=== PATIENT | male | born 1940 | race Caucasian/White ===

== ENCOUNTER 2017-07-18 21:15 | Emergency (ER) | payer MEDICARE, OTHER ==
[~2017-07-18] VITALS: Ht 162.6 cm; Wt 78.5 kg
[~2017-07-18 21:15] MED LIST: ALTACE10 MG PO; ASPIRIN EC325 MG PO; BISOPROLOL-HCT1 EAC2 PO; CRESTOR10 MG PO; DICLOFENAC SODI75 MG PO; FOLIC ACID1 MG PO; HYDROCHLOROTHIA25 MG PO; JANUVIA50 MG PO; LEVOTHYROXINE100 MCG PO; METFORMIN HCL1000 MG PO; NIASPAN500 MG PO; OMEGA 3 1,0001 EACH PO; RANITIDINE HCL150 MG PO; SERTRALINE HCL100 MG PO
[2017-07-18] MEDS ORDERED: ULTRAM50 MG PO (21:31)
== END 2017-07-19 00:10 | disposition home or self-care (01) ==
LOC: ED 21:15
DX: K59.00 Constipation, unspecified (principal); M54.5 Low back pain; M79.606 Pain in leg, unspecified; G89.29 Other chronic pain; E11.9 Type 2 diabetes mellitus without complications; I10 Essential (primary) hypertension; I25.2 Old myocardial infarction; E78.5 Hyperlipidemia, unspecified; Z95.5 Presence of coronary angioplasty implant and graft; Z90.49 Acquired absence of other specified parts of digestive tract; Z79.899 Other long term (current) drug therapy; Z79.82 Long term (current) use of aspirin; Z79.84 Long term (current) use of oral hypoglycemic drugs
CPT/HCPCS: 74177; 80053; 81001; 83690; 85025; 96374; 99284; J1885; Q9967

== ENCOUNTER 2017-09-30 14:38 | Emergency (ER) | payer MEDICARE, OTHER ==
[~2017-09-30] VITALS: Ht 162.6 cm; Wt 78.5 kg
[~2017-09-30 14:38] MED LIST changes: +ULTRAM50 MG PO
[2017-09-30] MEDS ORDERED: GABAPENTIN300 MG PO (15:17)
[2017-09-30] MEDS ORDERED: NORCO 10-325 T1 EACH PO (18:17)
== END 2017-09-30 18:47 | disposition home or self-care (01) ==
LOC: ED 14:38
DX: M54.9 Dorsalgia, unspecified (principal); G89.29 Other chronic pain; E11.9 Type 2 diabetes mellitus without complications; I10 Essential (primary) hypertension; E78.5 Hyperlipidemia, unspecified; I25.2 Old myocardial infarction; Z79.899 Other long term (current) drug therapy; Z79.84 Long term (current) use of oral hypoglycemic drugs; Z79.82 Long term (current) use of aspirin
CPT/HCPCS: 36415; 80053; 80176; 81001; 84443; 85025; 99283; G0480

== ENCOUNTER 2017-11-11 16:12 | Inpatient (IN) | payer MEDICARE, OTHER ==
[~2017-11-11] VITALS: Ht 162.6 cm; Wt 70.7 kg
--- OUTSIDE RECORDS SUMMARY | ~2017-11-11 | XMS | Clinical Summary ---
Demographics + + + | Address | [address] | | | [place] [address] | + + + | Home Phone | | + + + | Preferred Language | Unknown | + + + | Marital Status | | + + + | Muslim Affiliation | 1041 | + + + | Race | Unknown | + + + | Ethnic Group | Unknown | + + + Author + + + | Author | [facility] | + + + | Organization | [facility] | + + + | Address | Unknown | + + + | Phone | Unavailable | + + + Support + + + + + | Name | Relationship | Address | Phone | + + + + + | Marci Wu | [place] | [address] | | | | | [place] | | | | | [phone] | | + + + + + Care Team Providers + +------+ + | Care Public Information Coordinator Name | Role | Phone | + +------+ + | Breezy Matias MD | PP | | + +------+ + Allergies No Known Allergies Current Medications + + +-------+---------+------+------+-------+ | Prescription | Sig. | Disp. | Refills | Star | End | Statu | | | | | | t | Date | s | | | | | | Date | | | + + +-------+---------+------+------+-------+ | | Take 1 tablet by | | | | | Activ | | sitagliptan-metformi | mouth 2 (two) times | | | | | e | | n (CHERISE) 50-1000 | daily with meals. | | | | | | | MG per tablet | | | | | | | + + +-------+---------+------+------+-------+ | aspirin 325 MG | Take 325 mg by mouth | | | | | Activ | | tablet | daily with | | | | | e | | | breakfast. | | | | | | + + +-------+---------+------+------+-------+ | niacin (NIASPAN) | Take 500 mg by mouth | | | | | Activ | | 500 MG CR tablet | nightly. | | | | | e | + + +-------+---------+------+------+-------+ | folic acid | Take 1 mg by mouth | | | | | Activ | | (FOLVITE) 1 MG | daily. | | | | | e | | tablet | | | | | | | + + +-------+---------+------+------+-------+ | sertraline | Take 100 mg by mouth | | | | | Activ | | (ZOLOFT) 100 MG | daily. | | | | | e | | tablet | | | | | | | + + +-------+---------+------+------+-------+ | levothyroxine | Take 100 mcg by | | | | | Activ | | (SYNTHROID) 100 MCG | mouth every morning | | | | | e | | tablet | before breakfast. | | | | | | + + +-------+---------+------+------+-------+ | ramipril (ALTACE) | Take 10 mg by mouth | | | | | Activ | | 10 MG capsule | daily. | | | | | e | + + +-------+---------+------+------+-------+ | rosuvastatin | Take 10 mg by mouth | | | | | Activ | | (CRESTOR) 10 MG | nightly. | | | | | e | | tablet | | | | | | | + + +-------+---------+------+------+-------+ | diclofenac | Take 75 mg by mouth | | | | | Activ | | (VOLTAREN) 75 MG EC | 2 (two) times daily. | | | | | e | | tablet | | | | | | | + + +-------+---------+------+------+-------+ | glipiZIDE | Take 5 mg by mouth | | | | | Activ | | (GLUCOTROL) 2.5 MG | daily. | | | | | e | | 24 hr tablet | | | | | | | + + +-------+---------+------+------+-------+ | | Take 25 mg by mouth | | | | | Activ | | hydrochlorothiazide | daily. | | | | | e | | (HYDRODIURIL) 25 MG | | | | | | | | tablet | | | | | | | + + +-------+---------+------+------+-------+ | ranitidine | Take 150 mg by mouth | | | | | Activ | | (ZANTAC) 150 MG | 2 (two) times | | | | | e | | tablet | daily. | | | | | | + + +-------+---------+------+------+-------+ | fish oil omega-3 | Take 1 g by mouth | | | | | Activ | | fatty acids 1000 MG | daily. | | | | | e | | capsule | | | | | | | + + +-------+---------+------+------+-------+ | allopurinol | Take 100 mg by mouth | | | | | Activ | | (ZYLOPRIM) 100 MG | daily. | | | | | e | | tablet | | | | | | | + + +-------+---------+------+------+-------+ | amitriptyline | Take 10 mg by mouth | | | | | Activ | | (ELAVIL) 10 MG | nightly. | | | | | e | | tablet | | | | | | | + + +-------+---------+------+------+-------+ | aspirin 81 MG | Take 81 mg by mouth | | | | | Activ | | tablet | daily. | | | | | e | + + +-------+---------+------+------+-------+ | pregabalin | Take 150 mg by mouth | | | | | Activ | | (LYRICA) 300 MG | 2 (two) times | | | | | e | | capsule | daily. | | | | | | + + +-------+---------+------+------+-------+ Active Problems + + + | Problem | Noted Date | + + + | Moderate aortic stenosis | 03/15/2015 | + + + + + | Last Assessment & Plan: Will do periodic monitoring | | Continue Statin, ASA. | + + + + + | Coronary artery disease involving [place] coronary artery without | 02/01/2015 | | angina pectoris | | + + + + + | Last Assessment & Plan: H/o CAD s/p PCI to pLAD | | (3.5X3.3mm Cypher stent)Currently asymptomaticComplaints fatigue | | but attributes to knee painsLast stress- 06/03/2012- Abnormal test | | with lateral ischemiaEcho- 06/13/2012- Mild LVH with Normal | | systolic function, dilated aortic root03/03/2015- EST nuclear | | stress MPI- no ischemia, EF 62%02/09/2015- 2D echo normal LV | | function, moderate ASDiscussed diet, exercise, lifestyle | | changesContinue Toprol XL 25mg QD, Rosvastatin 10m QD, Plavix | | 75mg QD, HCTZ 25 mg daily, Ramipril 10mg daily, Niaspan ER 500mg | | dailyWill stop ZIAC (bisoprolol- HCTZ)Continue rest of the | | current managementF/u in 6 months. | |F/u in 6 months. | + + + +---+ | Hypertension | | + +---+ | TX (myocardial infarction) | | + +---+ Encounters +--------+ + + + + | Date | Type | Specialty | Care Team | Description | +--------+ + + + + | 11/10/ | Initial | | Myles Canchola MD | Nonrheumatic aortic | | 2017 | consult | | | valve stenosis | | | | | | (Primary Dx) | +--------+ + + + + | 10/27/ | Hospital | | Aries, | Aortic valve | | 2017 | Encounter | | Arya Reyes MD | stenosis, etiology | | | | | | of cardiac valve | | | | | | disease unspecified | +--------+ + + + + | 10/27/ | Orders Only | | Aries, | Aortic valve | | 2018 | | | Arya Reyes MD | stenosis, etiology | | | | | | of cardiac valve | | | | | | disease unspecified | | | | | | (Primary Dx) | +--------+ + + + + | 08/13/ | Office | | Nathaniel Hanson MD | Testicular pain, | | 2018 | Visit | | | left (Primary Dx); | | | | | | 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 | +--------+ + + + + from Last 3 Months Family History + + +------+ + | Medical History | Relation | Name | Comments | + + +------+ + | Heart attack | Father | | | + + +------+ + | Cancer | Mother | | | + + +------+ + | High cholesterol | Mother | | | + + +------+ + + +------+ + + | Relation | Name | Status | Comments | + +------+ + + | Brother | | | | + +------+ + + | Father | | | | + +------+ + + | Mother | | | | + +------+ + + Social History + +-------+ +--------+ + | Tobacco Use | Types | Packs/Day | Years | Date | | | | | Used | | + +-------+ +--------+ + | Former Smoker | | 1.5 | | Quit: 11/11/2007 | + +-------+ +--------+ + + +-------+---+---+ | Smokeless Tobacco: | Snuff | | | | Current User | | | | + +-------+---+---+ + + | Tobacco Cessation: Counseling Given: Yes | + + + + +---------+ + | Alcohol Use | Drinks/We | oz/Week | Comments | | | ek | | | + + +---------+ + | Yes | 0 | 0.0 | rarely | | | Standard | | | | | drinks or | | | | | | | | | | equivalen | | | | | t | | | + + +---------+ + + + + | Sex Assigned at | Date Recorded | | | | + + + | Not on file | | + + + Last Filed Vital Signs + + + + | Vital Sign | Reading | Time Taken | + + + + | Blood Pressure | 98/49 | 11/10/2017 12:07 PM PDT | + + + + | Pulse | 54 | 11/10/2017 12:07 PM PDT | + + + + | Temperature | 36.4 C (97.6 F) | 11/10/2017 12:07 PM PDT | + + + + | Respiratory Rate | 16 | 03/18/2016 11:24 AM PDT | + + + + | Oxygen Saturation | 98% | 11/10/2017 12:07 PM PDT | + + + + | Inhaled Oxygen | - | - | | Concentration | | | + + + + | Weight | 72.5 kg (159 lb 14.4 | 11/10/2017 12:07 PM PDT | | | oz) | | + + + + | Height | 167.6 cm (5' 6") | 11/10/2017 12:07 PM PDT | + + + + | Body Mass Index | 25.81 | 11/10/2017 12:07 PM PDT | + + + + Plan of Treatment + + + + + | Health Maintenance | Due Date | Last Done | Comments | + + + + + | Vaccine: | | | | | Dtap/Tdap/Td (1 - | 9 | | | | Tdap) | | | | + + + + + | Vaccine: | | | | | Pneumococcal 65+ | 5 | | | | Low/Medium Risk (1 | | | | | of 2 - PCV13) | | | | + + + + + | Vaccine: Influenza | | | | | (Season Ended) | 8 | | | + + + + + Procedures + +--------+ + + + | Procedure Name | Priori | Date/Time | Associated Diagnosis | Comments | | | ty | | | | + +--------+ + + + | ECHO CARDIAC ADULT | Routin | 10/27/2017 | Aortic valve | Results for this | | COMPLETE | e | 4:40 PM | stenosis, etiology | procedure are in the | | | | PDT | of cardiac valve | results section. | | | | | disease unspecified | | + +--------+ + + + from Last 3 Months Results Echo cardiac adult complete (10/27/2017 4:40 PM) + +-------+ + | Component | Value | Ref Range | + +-------+ + | LV EF | 55 | 50 - 70 % | + +-------+ + + + + | Specimen | Performing Laboratory | + + + | | [id number] [id number] | + + + + + | Impressions | + + | 1. Overall left ventricular systolic function is low-normal with, an EF between 50 - | | 55 %. 2. There is mild concentric left ventricular hypertrophy. 3. Severe aortic | | stenosis with peak/mean pressure gradient of 70.34mmHg / 41.11mmHg, the aortic valve | | area by continuity equation is 1.1cm . | + + + + | Narrative | + + | Patient Name: SUZIE WU Date of : 1940 | | Performing Physician: Arya Chris MD | | ------REPORT | | ADDENDED------ INDICATIONS AORTIC VALVE STENOSIS. CONCLUSIONS | | 1. Overall left ventricular systolic function is low-normal with, an EF | | between 50 - 55 %. 2. There is mild concentric left ventricular hypertrophy. 3. Severe | | aortic stenosis with peak/mean pressure gradient of 70.34mmHg / 41.11mmHg, the aortic | | valve area by continuity equation is 1.1cm . FINDINGS -------- ECG rhythm: | | Resting bradycardia (HR<60bpm). Study: A 2-dimensional transthoracic echocardiogram | | with m-mode, spectral and color flow Doppler was perfomed. Study: This was a | | technically good study. Left Ventricle: Overall left ventricular systolic function is | | low-normal with, an EF between 50 - 55 %. Left Ventricle: Left Ventricle ejection | | fraction by m-mode measures {EF(Teich)}. Left Ventricle: The left ventricle cavity | | size is normal. Left Ventricle: There is mild concentric left ventricular hypertrophy. | | Left Ventricle: The diastolic filling pattern indicates impaired relaxation | | consistent with mild dysfunction (Grade I), which is normal for the patient's age. | | Right Ventricle: The right ventricle is normal in size. Right Ventricle: The right | | ventricular systolic function is at the low end of normal. Left Atrium: The left atrium | | is mildly dilated by volume Left Atrium: and the LA measures 3.9cm. Right Atrium: | | The right atrial size is normal. Right Atrium: and the right atrium measures 4.5cm | | Aortic Valve: The aortic valve is trileaflet. Aortic Valve: The aortic valve is | | severely calcified. Aortic Valve: There is mild aortic regurgitation. Aortic Valve: | | Severe aortic stenosis with peak/mean pressure gradient of 70.34mmHg / 41.11mmHg, the | | aortic valve area by continuity equation is 1.1cm . Aortic Valve: The mean | | gradient across the aortic valve is 41.11mmHg. Mitral Valve: The mitral valve is | | normal. Mitral Valve: Mild mitral annular calcification present. Tricuspid Valve: The | | tricuspid valve appears structurally normal. Tricuspid Valve: Trace tricuspid | | regurgitation present. Tricuspid Valve: Right ventricular systolic pressure (pulmonary | | artery systolic pressure) is normal at < 35 mmHg. Pulmonic Valve: The pulmonic valve | | is normal. Pericardium: There is a trivial pericardial effusion present, generalized. | | IVC/Hepatic Veins: The IVC is normal size (1.5-2.5cm) and collapses >50% with sniff, | | consistent with central venous pressures of 5-10mmHg. Mass: No mass visualized | | Thrombus: No vegetation visualized. MEASUREMENTS EDV(Teich): | | 91.31 ml IVSd: 1.28 cm LVIDd: 4.47 cm LVPWd: 1.14 cm LVOT Diam: 2.11 | | cm %FS: 25.04 % EF(Teich): 49.69 % ESV(Teich): 45.93 ml IVSs: 1.57 | | cm LVIDs: 3.35 cm LVPWs: 1.78 cm SV(Teich): 45.37 ml PEd: 0.67 cm | | RA Major: 4.46 cm RVIDd: 3.33 cm LVEF MOD A2C: 55.04 % SV MOD A2C: | | 79.47 ml LVEF MOD A4C: 62.28 % SV MOD A4C: 65.37 ml EF Biplane: 58.73 % | | LVEDV MOD BP: 125.56 ml LVESV MOD BP: 51.81 ml LVEDV MOD A2C: 144.37 ml | | LVLd A2C: 8.17 cm LVEDV MOD A4C: 104.96 ml LVLd A4C: 7.78 cm LVESV MOD | | A2C: 64.89 ml LVLs A2C: 6.50 cm LVESV MOD A4C: 39.58 ml LVLs A4C: | | 6.14 cm CO Biplane: 3.25 l/min HR: 44.08 BPM R-R: 1361.01 ms | | LAESV(A-L): 75.85 ml LAESV Index (A-L): 41.67 ml/m2 LAAs A2C: 21.98 cm2 | | LAESV A-L A2C: 74.32 ml LALs A2C: 5.51 cm LAAs A4C: 22.28 cm2 LAESV A-L | | A4C: 76.90 ml LALs A4C: 5.48 cm Karen: 5.56 cm2 RAEDV A-L: 7.54 ml | | RAEDV MOD: 7.87 ml RALd: 3.48 cm Ao Diam: 3.64 cm AV Cusp: 0.86 cm | | LA Diam: 3.85 cm LA/Ao: 1.05 D-E Excursion: 1.94 cm E-F Garrard: 0.03 | | m/s TAPSE: 1.28 cm IVC diameter: 2.19 cm IVC collapse: 1.04 cm IVC % | | collapse: 49.97 % HR: 46.93 BPM AV maxP.34 mmHg AV meanP.11 | | mmHg AV Vmax: 4.19 m/s AV Vmean: 3.01 m/s AV VTI: 106.80 cm VERA | | Vmax: 1.06 cm2 VERA (VTI): 1.11 cm2 AVAI Vmax: 0.00 cm2/m2 AVAI (VTI): | | 0.00 cm2/m2 LVCI Dopp: 3.41 l/minm2 LVCO Dopp: 6.22 l/min HR: 52.38 BPM | | LVOT maxP.41 mmHg LVOT meanP.58 mmHg LVSI Dopp: 65.26 ml/m2 LVSV | | Dopp: 118.78 ml LVOT Vmax: 1.26 m/s LVOT Vmean: 0.90 m/s LVOT VTI: | | 33.70 cm MCO: 446.36 ms MR maxP.30 mmHg MR meanP.40 mmHg MR | | Vmax: 5.43 m/s MR Vmean: 3.97 m/s MR VTI: 204.37 cm MV A Phil: 1.01 | | m/s MV DecT: 276.09 ms MV E Phil: 1.14 m/s MV E/A Ratio: 1.13 MV | | PHT: 88.84 ms MVA By PHT: 2.47 cm2 MV A Dur: 117.64 ms Septal e': | | 0.04 m/s Septal E/e': 26.02 Lateral e': 0.06 m/s Lateral E/e': 18.46 P | | Vein A: 0.30 m/s P Vein A Dur: 93.42 ms P Vein D: 0.46 m/s P Vein S/D | | Ratio: 1.59 P Vein S: 0.74 m/s HR: 46.36 BPM PV maxP.48 mmHg PV | | meanP.41 mmHg PV Vmax: 1.27 m/s PV Vmean: 0.87 m/s PV VTI: 33.34 | | cm RV S': 0.11 m/s TR maxP.47 mmHg TR Vmax: 1.53 m/s TV A Phil: | | 0.47 m/s TV Dec Garrard: 2.23 m/s2 TV Dec Time: 286.00 ms TV E Phil: 0.63 | | m/s TV E/A Ratio: 1.33 [employer] Tutor: ANGELA Authenticated by: Arya Chris | | Report Date/Time: 10-28-2017 8:45:32 | + + + + | Procedure Note | + + | Kobi Cummings In - 10/28/2017 8:51 AM PDT Patient Name: Jose WU of | | : 1940Accession: [id number] Physician: Arya Chris | | ------REPORT | | ADDENDED------INDICATIONS AORTIC VALVE STENOSIS.CONCLUSIONS 1. | | Overall left ventricular systolic function is low-normal with, an EF between 50 - 55 | | %.2. There is mild concentric left ventricular hypertrophy.3. Severe aortic stenosis | | with peak/mean pressure gradient of 70.34mmHg / 41.11mmHg, the aortic valve area by | | continuity equation is 1.1cm .FINDINGS--------ECG rhythm: Resting bradycardia | | (HR<60bpm).Study: A 2-dimensional transthoracic echocardiogram with m-mode, spectral and | | color flow Doppler was perfomed. Study: This was a technically good study.Left | | Ventricle: Overall left ventricular systolic function is low-normal with, an EF between | | 50 - 55 %. Left Ventricle: Left Ventricle ejection fraction by m-mode measures | | {EF(Teich)}. Left Ventricle: The left ventricle cavity size is normal. Left Ventricle: | | There is mild concentric left ventricular hypertrophy. Left Ventricle: The diastolic | | filling pattern indicates impaired relaxation consistent with mild dysfunction (Grade | | I), which is normal for the patient's age.Right Ventricle: The right ventricle is normal | | in size. Right Ventricle: The right ventricular systolic function is at the low end of | | normal.Left Atrium: The left atrium is mildly dilated by volume Left Atrium: and the LA | | measures 3.9cm.Right Atrium: The right atrial size is normal. Right Atrium: and the | | right atrium measures 4.5cmAortic Valve: The aortic valve is trileaflet. Aortic Valve: | | The aortic valve is severely calcified. Aortic Valve: There is mild aortic | | regurgitation. Aortic Valve: Severe aortic stenosis with peak/mean pressure gradient of | | 70.34mmHg / 41.11mmHg, the aortic valve area by continuity equation is 1.1cm . | | Aortic Valve: The mean gradient across the aortic valve is 41.11mmHg.Mitral Valve: The | | mitral valve is normal. Mitral Valve: Mild mitral annular calcification | | present.Tricuspid Valve: The tricuspid valve appears structurally normal. Tricuspid | | Valve: Trace tricuspid regurgitation present. Tricuspid Valve: Right ventricular | | systolic pressure (pulmonary artery systolic pressure) is normal at < 35 mmHg.Pulmonic | | Valve: The pulmonic valve is normal.Pericardium: There is a trivial pericardial effusion | | present, generalized.IVC/Hepatic Veins: The IVC is normal size (1.5-2.5cm) and | | collapses >50% with sniff, consistent with central venous pressures of 5-10mmHg.Mass: No | | mass visualizedThrombus: No vegetation visualized.MEASUREMENTS EDV(Teich): | | 91.31 mlIVSd: 1.28 cmLVIDd: 4.47 cmLVPWd: 1.14 cmLVOT Diam: 2.11 cm%FS: | | 25.04 %EF(Teich): 49.69 %ESV(Teich): 45.93 mlIVSs: 1.57 cmLVIDs: 3.35 cmLVPWs: | | 1.78 cmSV(Teich): 45.37 mlPEd: 0.67 cmRA Major: 4.46 cmRVIDd: 3.33 cmLVEF MOD | | A2C: 55.04 %SV MOD A2C: 79.47 mlLVEF MOD A4C: 62.28 %SV MOD A4C: 65.37 mlEF | | Biplane: 58.73 %LVEDV MOD BP: 125.56 mlLVESV MOD BP: 51.81 mlLVEDV MOD A2C: | | 144.37 mlLVLd A2C: 8.17 cmLVEDV MOD A4C: 104.96 mlLVLd A4C: 7.78 cmLVESV MOD A2C: | | 64.89 mlLVLs A2C: 6.50 cmLVESV MOD A4C: 39.58 mlLVLs A4C: 6.14 cmCO Biplane: | | 3.25 l/minHR: 44.08 BPMR-R: 1361.01 msLAESV(A-L): 75.85 mlLAESV Index (A-L): | | 41.67 ml/m2LAAs A2C: 21.98 po7ENTER A-L A2C: 74.32 mlLALs A2C: 5.51 cmLAAs A4C: | | 22.28 [id number] A-L A4C: 76.90 mlLALs A4C: 5.48 cmRAAd: 5.56 hp2XXATH A-L: 7.54 | | mlRAEDV MOD: 7.87 mlRALd: 3.48 cmAo Diam: 3.64 cmAV Cusp: 0.86 cmLA Diam: 3.85 | | cmLA/Ao: 1.05 D-E Excursion: 1.94 cmE-F Garrard: 0.03 m/sTAPSE: 1.28 cmIVC | | diameter: 2.19 cmIVC collapse: 1.04 cmIVC % collapse: 49.97 %HR: 46.93 BPMAV | | maxP.34 mmHgAV meanP.11 mmHgAV Vmax: 4.19 m/Frank Vmean: 3.01 m/Frank VTI: | | 106.80 cmAVA Vmax: 1.06 cm2AVA (VTI): 1.11 [id number] Vmax: 0.00 cm2/m2AVAI (VTI): | | 0.00 cm2/m2LVCI Dopp: 3.41 l/yasq2QVAG Dopp: 6.22 l/minHR: 52.38 BPMLVOT maxPG: | | 6.41 mmHgLVOT meanP.58 mmHgLVSI Dopp: 65.26 ml/m2LVSV Dopp: 118.78 mlLVOT | | Vmax: 1.26 m/sLVOT Vmean: 0.90 m/sLVOT VTI: 33.70 cmMCO: 446.36 msMR maxPG: | | 118.30 mmHgMR meanP.40 mmHgMR Vmax: 5.43 m/sMR Vmean: 3.97 m/sMR VTI: | | 204.37 cmMV A Phil: 1.01 m/sMV DecT: 276.09 msMV E Phil: 1.14 m/sMV E/A Ratio: | | 1.13 MV PHT: 88.84 msMVA By PHT: 2.47 cm2MV A Dur: 117.64 msSeptal e': 0.04 | | m/sSeptal E/e': 26.02 Lateral e': 0.06 m/sLateral E/e': 18.46 P Vein A: 0.30 | | m/sP Vein A Dur: 93.42 msP Vein D: 0.46 m/sP Vein S/D Ratio: 1.59 P Vein S: 0.74 | | m/sHR: 46.36 BPMPV maxP.48 mmHgPV meanP.41 mmHgPV Vmax: 1.27 m/sPV | | Vmean: 0.87 m/sPV VTI: 33.34 cmRV S': 0.11 m/sTR maxP.47 mmHgTR Vmax: 1.53 | | m/sTV A Phil: 0.47 m/sTV Dec Garrard: 2.23 m/s2TV Dec Time: 286.00 msTV E Phil: | | 0.63 m/sTV E/A Ratio: 1.33 [employer] Tutor: MIKAuthenticated by: Arya Chris | | MDReport Date/Time: 10-28-2017 8:45:32IMPRESSION:1. Overall left ventricular systolic | | function is low-normal with, an EF between 50 - 55 %.2. There is mild concentric left | | ventricular hypertrophy.3. Severe aortic stenosis with peak/mean pressure gradient of | | 70.34mmHg / 41.11mmHg, the aortic valve area by continuity equation is 1.1cm . | |LVIDs: 3.35 cm | |LVPWs: 1.78 cm | |SV(Teich): 45.37 ml | |PEd: 0.67 cm | |RA Major: 4.46 cm | |RVIDd: 3.33 cm | |LVEF MOD A2C: 55.04 % | |SV MOD A2C: 79.47 ml | |LVEF MOD A4C: 62.28 % | |SV MOD A4C: 65.37 ml | |EF Biplane: 58.73 % | |LVEDV MOD BP: 125.56 ml | |LVESV MOD BP: 51.81 ml | |LVEDV MOD A2C: 144.37 ml | |LVLd A2C: 8.17 cm | |LVEDV MOD A4C: 104.96 ml | |LVLd A4C: 7.78 cm | |LVESV MOD A2C: 64.89 ml | |LVLs A2C: 6.50 cm | |LVESV MOD A4C: 39.58 ml | |LVLs A4C: 6.14 cm | |CO Biplane: 3.25 l/min | |HR: 44.08 BPM | |R-R: 1361.01 ms | |LAESV(A-L): 75.85 ml | |LAESV Index (A-L): 41.67 ml/m2 | |LAAs A2C: 21.98 cm2 | |LAESV A-L A2C: 74.32 ml | |LALs A2C: 5.51 cm | |LAAs A4C: 22.28 cm2 | |LAESV A-L A4C: 76.90 ml | |LALs A4C: 5.48 cm | |Karen: 5.56 cm2 | |RAEDV A-L: 7.54 ml | |RAEDV MOD: 7.87 ml | |RALd: 3.48 cm | |Ao Diam: 3.64 cm | |AV Cusp: 0.86 cm | |LA Diam: 3.85 cm | |LA/Ao: 1.05 | |D-E Excursion: 1.94 cm | |E-F Garrard: 0.03 m/s | |TAPSE: 1.28 cm | |IVC diameter: 2.19 cm | |IVC collapse: 1.04 cm | |IVC % collapse: 49.97 % | |HR: 46.93 BPM | |AV maxP.34 mmHg | |AV meanP.11 mmHg | |AV Vmax: 4.19 m/s | |AV Vmean: 3.01 m/s | |AV VTI: 106.80 cm | |VERA Vmax: 1.06 cm2 | |VERA (VTI): 1.11 cm2 | |AVAI Vmax: 0.00 cm2/m2 | |AVAI (VTI): 0.00 cm2/m2 | |LVCI Dopp: 3.41 l/minm2 | |LVCO Dopp: 6.22 l/min | |HR: 52.38 BPM | |LVOT maxP.41 mmHg | |LVOT meanP.58 mmHg | |LVSI Dopp: 65.26 ml/m2 | |LVSV Dopp: 118.78 ml | |LVOT Vmax: 1.26 m/s | |LVOT Vmean: 0.90 m/s | |LVOT VTI: 33.70 cm | |MCO: 446.36 ms | |MR maxP.30 mmHg | |MR meanP.40 mmHg | |MR Vmax: 5.43 m/s | |MR Vmean: 3.97 m/s | |MR VTI: 204.37 cm | |MV A Phil: 1.01 m/s | |MV DecT: 276.09 ms | |MV E Phil: 1.14 m/s | |MV E/A Ratio: 1.13 | |MV PHT: 88.84 ms | |MVA By PHT: 2.47 cm2 | |MV A Dur: 117.64 ms | |Septal e': 0.04 m/s | |Septal E/e': 26.02 | |Lateral e': 0.06 m/s | |Lateral E/e': 18.46 | |P Vein A: 0.30 m/s | |P Vein A Dur: 93.42 ms | |P Vein D: 0.46 m/s | |P Vein S/D Ratio: 1.59 | |P Vein S: 0.74 m/s | |HR: 46.36 BPM | |PV maxP.48 mmHg | |PV meanP.41 mmHg | |PV Vmax: 1.27 m/s | |PV Vmean: 0.87 m/s | |PV VTI: 33.34 cm | |RV S': 0.11 m/s | |TR maxP.47 mmHg | |TR Vmax: 1.53 m/s | |TV A Phil: 0.47 m/s | |TV Dec Garrard: 2.23 m/s2 | |TV Dec Time: 286.00 ms | |TV E Phil: 0.63 m/s | |TV E/A Ratio: 1.33 | | | |[employer] School Tutor: ANGELA | |Authenticated by: Arya Chris MD | |Report Date/Time: 10-28-2017 8:45:32 | | | |IMPRESSION: | |1. Overall left ventricular systolic function is low-normal with, an EF between 50 - 55 %. | |2. There is mild concentric left ventricular hypertrophy. | |3. Severe aortic stenosis with peak/mean pressure gradient of 70.34mmHg / 41.11mmHg, the ao rtic valve area by continuity equation is 1.1cm . | + + from Last 3 Months Insurance + +--------+ +------+-------+ + | Payer | Benefi | Subscriber | Type | Phone | Address | | | t Plan | ID | | | | | | / | | | | | | | Group | | | | | + +--------+ +------+-------+ + | MEDICARE | MEDICA | xxxxxxxxxx | | | [address] | | | RE | | | | [place] [phone] | | | IP-OP | | | | | + +--------+ +------+-------+ + | [place] | YELLOW | [id number] | | | | | PLANS | [place] | | | | | + +--------+ +------+-------+ + + +--------+ +--------+ + + | Guarantor Name | Accoun | Relation to | Date | Phone | Billing Address | | | t Type | Patient | of | | | | | | | | | | + +--------+ +--------+ + + | SUZIE WU | Person | Self [birth year] Home: | [id number] | | | al/Fam | | 1940 | [phone] [place] [address] | | | laxmi | | | [phone] | | + +--------+ +--------+ + +
--- OUTSIDE RECORDS SUMMARY | ~2017-11-11 | XMS | Clinical Summary ---
Demographics + + + | Address | [address] | | | [place] [address] | + + + | Home Phone | | + + + | Preferred Language | Unknown | + + + | Marital Status | | + + + | Tenriism Affiliation | 1041 | + + + | Race | Unknown | + + + | Ethnic Group | Unknown | + + + Author + + + | Author | [facility] | | | and [place] | + + + | Organization | [facility] | | | and [place] | + + + | Address | Unknown | + + + | Phone | Unavailable | + + + Support + + +---------+ + | Name | Relationship | Address | Phone | + + +---------+ + | Marci Wu | [place] | Unknown | | + + +---------+ + | Samantha Masters ECON | Unknown | | + + +---------+ + Care Team Providers + +------+ + | Care Sign Maker Name | Role | Phone | + +------+ + | Breezy Matias DO | PP | | + +------+ + Allergies + + + + + + | Active Allergy | Reactions | Severity | Noted | Comments | | | | | Date | | + + + + + + | Celecoxib | Other (See Comments) | | 02/07/20 | Unknown reaction | | | | | 18 | | + + + + + + | Erythromycin | Diarrhea | Low | 09/02/19 | | | | | | 18 | | + + + + + + Current Medications + + +---------+---------+------+------+-------+ | Prescription | Sig. | Disp. | Refills | Star | End | Statu | | | | | | t | Date | s | | | | | | Date | | | + + +---------+---------+------+------+-------+ | | Take 2 tablets by | | | | | Activ | | sitagliptan-metFORMI | mouth Daily. | | | | | e | | N FLETCHER) 50-1000 | | | | | | | | MG per tablet | | | | | | | + + +---------+---------+------+------+-------+ | sertraline | Take 100 mg by mouth | | | | | Activ | | (ZOLOFT) 100 mg | Daily. | | | | | e | | tablet | | | | | | | + + +---------+---------+------+------+-------+ | rosuvastatin | Take 10 mg by mouth | | | | | Activ | | (CRESTOR) 10 mg | Daily. | | | | | e | | tablet | | | | | | | + + +---------+---------+------+------+-------+ | raNITIdine | Take 2 tablets by | | | | | Activ | | (ZANTAC) 150 mg | mouth Daily. | | | | | e | | tablet | | | | | | | + + +---------+---------+------+------+-------+ | niacin (NIASPAN) | Take 500 mg by mouth | | | | | Activ | | 500 mg CR tablet | Daily. | | | | | e | + + +---------+---------+------+------+-------+ | levothyroxine | Take 100 mcg by | | | | | Activ | | (SYNTHROID) 100 mcg | mouth Daily. | | | | | e | | tablet | | | | | | | + + +---------+---------+------+------+-------+ | | Take 25 mg by mouth | | | | | Activ | | hydroCHLOROthiazide | Daily. | | | | | e | | 25 mg tablet | | | | | | | + + +---------+---------+------+------+-------+ | glipiZIDE | Take 5 mg by mouth | | | | | Activ | | (GLUCOTROL XL) 2.5 | Daily. | | | | | e | | mg 24 hr tablet | | | | | | | + + +---------+---------+------+------+-------+ | folic acid 1 mg | Take 1 mg by mouth | | | | | Activ | | tablet | Daily. | | | | | e | + + +---------+---------+------+------+-------+ | aspirin 81 MG | Take 81 mg by mouth | | | | | Activ | | tablet | Daily. | | | | | e | + + +---------+---------+------+------+-------+ | amitriptyline | Take 10 mg by mouth | | | | | Activ | | (ELAVIL) 10 mg | Daily. | | | | | e | | tablet | | | | | | | + + +---------+---------+------+------+-------+ | allopurinol | Take 100 mg by mouth | | | | | Activ | | (ZYLOPRIM) 100 mg | Daily. | | | | | e | | tablet | | | | | | | + + +---------+---------+------+------+-------+ | fish oil 1,000 mg | Take 2,000 mg by | | | | | Activ | | capsule | mouth 2 times daily. | | | | | e | + + +---------+---------+------+------+-------+ | lidocaine | Place 1 patch onto | | | | | Activ | | (LIDODERM) 5% patch | the skin Daily. | | | | | e | | | Apply for 12 hours, | | | | | | | | then remove for 12 | | | | | | | | hours. | | | | | | + + +---------+---------+------+------+-------+ | | Take 1-2 tablets by | | 0 | 02/1 | | Activ | | oxyCODONE-acetaminop | mouth EVERY 4 TO 6 | | | 2/20 | | e | | hen (PERCOCET) 5-325 | HOURS NEEDED. | | | 18 | | | | mg per tablet | | | | | | | + + +---------+---------+------+------+-------+ | docusate sodium | Take 100 mg by mouth | | | | | Activ | | (COLACE) 100 mg | Daily. | | | | | e | | capsule | | | | | | | + + +---------+---------+------+------+-------+ | gabapentin | 1 tab PO nightly x 5 | 120 | 2 | 03/0 | | Activ | | (NEURONTIN) 300 mg | days, then increase | capsule | | 5/20 | | e | | capsule | to 1 tab PO BID x 5 | | | 18 | | | | | days. If continue | | | | | | | | to tolerate well, | | | | | | | | increase to 1 tab PO | | | | | | | | TID. | | | | | | + + +---------+---------+------+------+-------+ | | Take 1 tablet by | | 0 | 03/0 | | Activ | | HYDROcodone-acetamin | mouth EVERY 4 TO 6 | | | 7/20 | | e | | ophen (NORCO) 10-325 | HOURS NEEDED. | | | 18 | | | | mg per tablet | | | | | | | + + +---------+---------+------+------+-------+ Active Problems + + + | Problem | Noted Date | + + + | Left lumbar radiculopathy | 09/28/2017 | + + + | Foraminal stenosis of lumbar region | 09/28/2017 | + + + | DDD (degenerative disc disease), lumbar | 09/28/2017 | + + + | History of lumbar laminectomy - L4/L5 | 09/28/2017 | + + + | Hypertension | 09/02/2017 | + + + | [place] (myocardial infarction) ([facility]) | 09/02/2017 | + + + | Moderate aortic stenosis | 03/15/2015 | + + + + + | Overview: Last Assessment & Plan: | | Will do periodic monitoring | | Continue Statin, ASA. 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 | 02/01/2015 | | angina pectoris | | + + + + + | Overview: Last Assessment & Plan: H/o CAD s/p PCI to pLAD | | (3.5X3.3mm Cypher stent)Currently asymptomaticComplaints | | fatigue but attributes to knee painsLast stress- 06/03/2012- | | Abnormal test with lateral ischemiaEcho- 06/13/2012- Mild LVH | | with Normal systolic function, dilated aortic root03/03/2015- EST | | nuclear stress MPI- no ischemia, EF 62%02/09/2015- 2D echo normal | | LV function, moderate ASDiscussed diet, exercise, lifestyle | | changesContinue Toprol XL 25mg QD, Rosvastatin 10m QD, Plavix | | 75mg QD, HCTZ 25 mg daily, Ramipril 10mg daily, Niaspan ER 500mg | | dailyWill stop ZIAC (bisoprolol- HCTZ)Continue rest of the | | current managementF/u in 6 months. | |Continue rest of the current management | |F/u in 6 months. | + + + +---+ | Low back pain | | + +---+ Encounters +--------+ + + + + | Date | Type | Specialty | Care Team | Description | +--------+ + + + + | 11/04/ | Orders Only | | Heriberto Choudhury MD | Back pain, | | 2017 | | | | unspecified back | | | | | | location, | | | | | | unspecified back | | | | | | pain laterality, | | | | | | unspecified | | | | | | chronicity (Primary | | | | | | Dx) | +--------+ + + + + | 10/15/ | Procedure | | | | | 2018 | Pass | | | | +--------+ + + + + | 10/12/ | Episode | | [facility] | | | 2018 | Changes | | Gian RN | | +--------+ + + + + | 10/08/ | Telephone | | [facility] | Surgery Appointment | | 2018 | | | MD Dai | | +--------+ + + + + | 10/06/ | Preadmit | | [facility] | Hypertension, | | 2018 | Visit | | MD Dai | unspecified type | | | | | | (Primary Dx); | | | | | | Coronary artery | | | | | | disease involving | | | | | | nikolski coronary | | | | | | artery of nikolski | | | | | | heart without angina | | | | | | pectoris | +--------+ + + + + | 10/06/ | Office | | [facility] | Coronary artery | | 2017 | Visit | | MD Dai | disease involving | | | | | | nikolski coronary | | | | | | artery of nikolski | | | | | | heart without angina | | | | | | pectoris (Primary | | | | | | Dx); Hypertension, | | | | | | unspecified type; | | | | | | Benign prostatic | | | | | | hyperplasia with | | | | | | weak urinary stream | +--------+ + + + + | 09/29/ | Hospital | | Mel, | Left lumbar | | 2017 | Encounter | | TYRA Darden | radiculopathy; | | | | | [employer] | Foraminal stenosis | | | | | | of lumbar region; | | | | | | DDD (degenerative | | | | | | disc disease), | | | | | | lumbar; History of | | | | | | lumbar laminectomy - | | | | | | L4/L5 | +--------+ + + + + | 09/28/ | Office | | Mel, | Left lumbar | | 2017 | Visit | | TYRA Darden | radiculopathy; | | | | | | Foraminal stenosis | | | | | | of lumbar region; | | | | | | DDD (degenerative | | | | | | disc disease), | | | | | | lumbar; History of | | | | | | lumbar laminectomy - | | | | | | L4/L5 | +--------+ + + + + | 09/28/ | Abstract | | Mel, | | | 2017 | | | TYRA Darden | | +--------+ + + + + | 09/22/ | Abstract | | Mel, | | | 2017 | | | TYRA Darden | | +--------+ + + + + | 09/17/ | Ancillary | | Provider, | | | 2018 | Orders | | MD Akash | | +--------+ + + + + | 09/15/ | Episode | | [facility] | | | 2017 | Changes | | A, RN | | +--------+ + + + + | 09/15/ | Episode | | [facility] | | | 2017 | Changes | | A, RN | | +--------+ + + + + | 09/08/ | Office | | [facility] [place] | BPH with | | 2017 | Visit | | MD Dai | obstruction/lower | | | | | | urinary tract | | | | | | symptoms (Primary | | | | | | Dx); Pyuria; Pre-op | | | | | | examination | +--------+ + + + + | 09/02/ | Office | | [facility] [place] | 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 (Primary | | | | | | Dx); Testicle pain; | | | | | | Benign prostatic | | | | | | hyperplasia with | | | | | | lower urinary tract | | | | | | symptoms, symptom | | | | | | details unspecified | +--------+ + + + + from Last 3 Months Family History + + +------+ + | Medical History | Relation | Name | Comments | + + +------+ + | Arthritis | Father | | | + + +------+ + | Diabetes | Father | | | + + +------+ + | Heart attack | Father | | | + + +------+ + | Diabetes | Mother | | | + + +------+ + | High cholesterol | Mother | | | + + +------+ + | Prostate cancer | Neg Hx | | | + + +------+ + + +------+ + + | Relation | Name | Status | Comments | + +------+ + + | Father | | | internal bleeding | | | | (Age | | | | | 85) | | + +------+ + + | Mother | | | diabetes | | | | (Age | | | | | 85) | | + +------+ + + Social History + +-------+ +--------+ + | Tobacco Use | Types | Packs/Day | Years | Date | | | | | Used | | + +-------+ +--------+ + | Former Smoker | | 2 | | Quit: 09/28/1977 | + +-------+ +--------+ + + +------+---+---+ | Smokeless Tobacco: | Chew | | | | Former User | | | | + +------+---+---+ + + +---------+ + | Alcohol Use | Drinks/We | oz/Week | Comments | | | ek | | | + + +---------+ + | Yes | | | rare | + + +---------+ + + + + | Sex Assigned at | Date Recorded | | | | + + + | Not on file | | + + + Last Filed Vital Signs + + + + | Vital Sign | Reading | Time Taken | + + + + | Blood Pressure | 130/62 | 10/06/2017922 PDT | + + + + | Pulse | 64 | 10/06/2017922 PDT | + + + + | Temperature | - | - | + + + + | Respiratory Rate | 16 | 10/06/2017922 PDT | + + + + | Oxygen Saturation | - | - | + + + + | Inhaled Oxygen | - | - | | Concentration | | | + + + + | Weight | 70.4 kg (155 lb 3.3 | 10/06/2017922 PDT | | | oz) | | + + + + | Height | 170.2 cm (5' 7") | 10/06/2017922 PDT | + + + + | Body Mass Index | 24.31 | 10/06/2017922 PDT | + + + + Plan of Treatment +--------+---------+ + + + | Date | Type | Specialty | Care Team | Description | +--------+---------+ + + + | 02/09/ | Office | | Heriberto Choudhury MD | | | 2018 | Visit | | [address] [facility] | | | | | | [address] [place] | | | | | | [address] | | | | | | | | | | | | Zackery Wei | | | | | | TYRA Menezes [address] | | | | | | [facility] [address] | | | | | | [place] | | | | | | [address] | | | | | | | | +--------+---------+ + + + + + + + + | Health [...] | | + + + + + Results Hemoglobin (10/06/2017 1037) + + + + | Component | Value | Ref Range | + + + + | Hgb | 10.4 (L) | 13.5 - 18.0 g/dL | + + + + + + + | Specimen | Performing Laboratory | + + + | Blood | [facility] Tanna Allen | | | [place] [address] | + + + Basic Metabolic Panel (10/06/2017 1037) + + + + | Component | Value | Ref Range | + + + + | NA | 138 | 136 - 149 mmol/L | + + + + | K | 4.4 | 3.5 - 5.1 mmol/L | + + + + | CL | 103 | 98 - 109 mmol/L | + + + + | CO2 | 27 | 24 - 31 mmol/L | + + + + | ANION GAP | 8 | 3 - 16 mmol/L | + + + + | GLUCOSE | 179 (H) | 70 - 109 mg/dL | + + + + | BUN | 12 | 7 - 18 mg/dL | + + + + | Creatinine, | 1.20 | 0.60 - 1.30 mg/dL | | Serum/Plasma | | | + + + + | eGFR if not | 59 (L)Comment: GLOMERULAR FILTRATION | >=60 mL/min/1.73m2 | | OMANI | RATE,ESTIMATED mL/min/1.10f9Oupq than | | | | 60 Chronic kidney disease,if found over | | | | a 3-month period.Less than 15 Kidney | | | | failureFor Americans,multiply the | | | | calculated GFR by 1.21. | | | | | | | | | | + + + + | CALCIUM | 9.1 | 8.3 - 10.5 mg/dL | + + + + | BUN/CREA | 10.0 | | + + + + + + + | Specimen | Performing Laboratory | + + + | Blood | [facility] Tanna ChurchViktoriya Rivasar | | | [place] [address] | + + + ECG 12 lead (10/06/2017 1034) + + +------ -----+ | Component | Value | Ref R nneka | + + +------ -----+ | VENTRICULAR RATE EKG | 50 | BPM | + + +------ -----+ | ATRIAL RATE | 50 | BPM | + + +------ -----+ | P-R INTERVAL | 190 | ms | + + +------ -----+ | QRS DURATION | 148 | ms | + + +------ -----+ | Q-T INTERVAL | 472 | ms | + + +------ -----+ | Q-T INTERVAL | 430 | ms | | (CORRECTED) | | | + + +------ -----+ | P WAVE AXIS | 63 | degre es | + + +------ -----+ | QRS AXIS | -21 | degre es | + + +------ -----+ | T AXIS | 145 | degre es | + + +------ -----+ | INTERPRETATION TEXT | Sinus bradycardiaLeft bundle branch | | | | blockAbnormal ECGNo previous ECGs | | | | availableConfirmed by VIRGINIA GRADY MD | | | | ([id number]) on 10/07/2017 7:33:35 AM | | | |Confirmed by VIRGINIA GRADY MD ([id number]) on 10/07/2017 7:33:35 AM | | | | | | + + +------ -----+ + + + | Specimen | Performing Laboratory | + + + | | [facility] | + + + FL JOJO Lumbar Transforaminal (09/29/2017 1406) + + + | Specimen | Performing Laboratory | + + + | | [facility] | + + + + + | Narrative | + + | 09/29/2017 Transforaminal Epidural Steroid Injections Diagnosis: Lumbar | | radiculopathy ICD-10 Code M54.16 Suzie Wu presents to the fluoroscopy | | suite for fluoroscopically-guided left L2-L3 and L5-S1 transforaminal epidural | | steroid injections as part of conservative management for chronic pain with lumbar | | radiculopathy and degenerative disc disease. After informed consent was obtained, the | | patient lay in the prone position on the fluoroscopy table. The areas were identified | | under fluoroscopic guidance. The areas were prepped and draped in sterile fashion. A | | 25-gauge, 1.5-inch needle was inserted into each region and approximately 3 mL of | | buffered 1% lidocaine was infused. Then, a 22-gauge spinal needle was inserted into | | the posterior superior transforaminal space at each level and advanced into the | | epidural space under fluoroscopic guidance. Confirmation into the epidural space was | | obtained with infusion of approximately 1 mL of Omnipaque contrast which showed | | epidural flow as well as nerve sheath flow. Then, a combination of 2 mL of 1% | | lidocaine and 1.5 mL of 10 mg/mL dexamethasone was infused, divided between the two | | levels. The patient tolerated the procedure well without complications. Pre- and | | post-procedure blood pressures were stable. The patient was given verbal as well as | | written follow-up instructions. Prior to the start of the procedure, the following | | were performed and/or verified, including correct patient identity, correct site/side | | marked and visible, agreement on the procedure to be done, correct patient | | positioning and an accurate procedure consent form. Any safety precautions based on | | clinical history and/or medication use have been addressed. I personally performed the | | procedure above. Estimated blood loss: Minimal Complications: None Findings: As | | expected Anesthesia: Local 1% Lidocaine | + + Urinalysis, Microscopic Only, with Culture if Indicated (09/08/2017 1329) + + + + | Component | Value | Ref Range | + + + + | WBC UA | 0-2 | 0 - 2 /HPF | + + + + | RBC UA | 0-2 | 0 - 2 /HPF | + + + + | SQUAMOUS EPITHELIAL | 2-5 (A) | 0 - 2 /LPF | | UA | | | + + + + | RENAL EPITHELIAL UA | 0-2 | 0 - 2 /HPF | + + + + | BACTERIA UA | Negative | Negative /HPF | + + + + | MUCUS UA | Present (A) | Negative /LPF | + + + + + + + | Specimen | Performing Laboratory | + + + | Urine - Urine, clean | [facility] Tanna Allen | | catch | [place] [address] | + + + POCT Urinalysis Dipstick Automated (09/08/2017 1327)Only the most recent of 2 results withi n the time period is included. + + + + | Component | Value | Ref Range | + + + + | Color, UA, POC | Susan (A) | Yellow, Light Yellow | + + + + | Clarity, UA, POC | Clear | | + + + + | Glucose, UA, POC | Negative | Negative | + + + + | Bilirubin, UA, POC | Small (A) | Negative | + + + + | Ketones, UA, POC | Trace (A) | Negative, 100 mg/dL | + + + + | Specific [place], | 1.020 | 1.001 - 1.030 | | UA, POC | | | + + + + | Blood, UA, POC | Negative | Negative | + + + + | pH, UA, POC | 6.0 | 5.0, 6.0, 7.0, 8.0, | | | | 5.5, 6.5, 7.5 | + + + + | Protein, UA, POC | Trace (A) | Negative | + + + + | Urobilinogen, UA, | 0.2 | 0.2, Negative, | | POC | | Normal, < 0.2 mg/dL, | | | | 1 mg/dL, < 0.2 | | | | E.U./dl, 1.0 | | | | E.U./dL, 0.2 mg/dL | + + + + | Nitrite, UA, POC | Negative | Negative | + + + + | Leukocyte Esterase, | Trace (A) | Negative | | UA, POC | | | + + + + | RED SUB UA | | | + + + + | ICTOTEST | | Negative | + + + + | REMARK | | | + + + + + + + | Specimen | Performing Laboratory | + + + | Urine | | + + + from Last 3 Months Insurance + +--------+ +--------+ +---------+ | Payer | Benefi | Subscriber | Type | Phone | Address | | | t Plan | ID | | | | | | / | | | | | | | Group | | | | | + +--------+ +--------+ +---------+ | MEDICARE | MEDICA | xxxxxxxxxx | Medica | [phone] | | | RE | | re | [phone] | | | | PART A | | | | | | | AND B | | | | | + +--------+ +--------+ +---------+ | [employer] | IHS | xxxxxx | Indemn | | | | SERVICE | YELLOW | | ity | | | | | [place] | | | | | + +--------+ +--------+ +---------+ + +--------+ +--------+ + + | Guarantor Name | Accoun | Relation to | Date | Phone | Billing Address | | | t Type | Patient | of | | | | | | | | | | + +--------+ +--------+ + + | SUZIE WU | Person | Self [birth year] Home: | [address] | | | al/Fam | | [phone] | [phone] | [place] [address] | | | laxmi | | | [phone] | | + +--------+ +--------+ + +
--- OUTSIDE RECORDS SUMMARY | ~2017-11-11 | XMS | Encounter Summary ---
Demographics + + + | Address | [address] | | | [place] [address] | + + + | Home Phone | | + + + | Preferred Language | Unknown | + + + | Marital Status | | + + + | Moravian Affiliation | 1041 | + + + | Race | Unknown | + + + | Ethnic Group | Unknown | + + + Author + + + | Author | [facility] | | | and [place] | + + + | Organization | [facility] | | | and [place] | + + + | Address | Unknown | + + + | Phone | Unavailable | + + + Support + + +---------+ + | Name | Relationship | Address | Phone | + + +---------+ + | Marci Osborn | [place] | Unknown | | + + +---------+ + | Samantha Masters ECON | Unknown | | + + +---------+ + Care Team Providers + +------+ + | Care Grants Assistant Name | Role | Phone | + +------+ + | Breezy Matias DO | PCP | | + +------+ + Encounter Details +--------+ + + + + | Date | Type | Department | Care Team | Description | +--------+ + + + + | 11/04/ | Orders Only | [facility] | Heriberto Choudhury MD | Back pain, | | 2018 | | NEUROSURGERY [address] | [address] [place] | unspecified back | | | | [address] [place] [address] | [address] [place], [place] | location, | | | | [place], [place] | [address] | unspecified back | | | | [address] | | pain laterality, | | | | [phone] | | unspecified | | | | | | chronicity (Primary | | | | | | Dx) | +--------+ + + + + Social History + +-------+ +--------+ [...] on file | | + + + as of this encounter Plan of Treatment +--------+---------+ + + + | Date | Type | Specialty | Care Team | Description | +--------+---------+ + + + | 02/09/ | Office | Neurosurgery | Heriberto Choudhury MD | | | 2018 | Visit | | [address] [place] | | | | | | [address] | | | | | | [address] | | | | | | | | | | | | Zackery Wei | | | | | | TYRA Menezes [address] | | | | | | [address] [place] [address] | | | | | | [place], [place] | | | | | | [address] | | | | | | | | +--------+---------+ + + + + +--------+ + + | Name | Priori | Associated Diagnoses | Order Schedule | | | ty | | | + +--------+ + + | XR Lumbar Spine 4 + Vw | Routin | Back pain, | Expected: | | | e | unspecified back | 11/04/2017, Expires: | | | | location, | 11/05/2018 | | | | unspecified back | | | | | pain laterality, | | | | | unspecified | | | | | chronicity | | + +--------+ + + as of this encounter Visit Diagnoses + + | Diagnosis | + + | Back pain, unspecified back location, unspecified back pain laterality, unspecified | | chronicity - Primary | + +"
--- OUTSIDE RECORDS SUMMARY | ~2017-11-11 | XMS | Encounter Summary ---
Demographics + + + | Address | [address] | | | [place] [address] | + + + | Home Phone | | + + + | Preferred Language | Unknown | + + + | Marital Status | | + + + | Roman Catholic Affiliation | 1041 | + + + | Race | Unknown | + + + | Ethnic Group | Unknown | + + + Author + + + | Author | [facility] | | | and [place] | + + + | Organization | [facility] | | | and [place] | + + + | Address | Unknown | + + + | Phone | Unavailable | + + + Support + + +---------+ + | Name | Relationship | Address | Phone | + + +---------+ + | Marci Osborn | [place] | Unknown | | + + +---------+ + | Samantha Masters | ECON | Unknown | | + + +---------+ + Care Team Providers + +------+ + | Care Communications Associate Name | Role | Phone | + +------+ + | Breezy Matias DO | PCP | | + +------+ + Reason for Visit + + + | Reason | Comments | + + + | Back Pain | low back radiating into left leg | + + + Evaluate & Treat (Urgent) +--------+--------+ + + + + | Status | Reason | Specialty | Diagnoses / | Referred By | Referred To | | | | | Procedures | Contact | Contact | +--------+--------+ + + + + | Closed | | Physical | Diagnoses | Qubarbarampalexandra, | Zikandice, | | | | Medicine and | DDD | Breezy Polo DO | Quentin Huang MD | | | | Rehabilitatio | (degenerativ | [address] | [address] | | | | n | e disc | [address] | | | | | disease), | WAY | [place], [place] | | | | | lumbar Low | [place], | [address] Phone: | | | | | back pain | [place] [address] | [phone] | | | | | Lumbar | Phone: | Fax: | | | | | radiculopath | [phone] | [phone] | | | | | y | Fax: | | | | | | Procedures | [phone] | | | | | | DOS 09/28/17 | | | +--------+--------+ + + + + Encounter Details +--------+---------+ + + + | Date | Type | Department | Care Team | Description | +--------+---------+ + + + | 09/28/ | Office | [facility] | Scarletdanoemilycz, | Left lumbar | | 2017 | Visit | PHYSIATRY [address] | TYRA Darden [address] | radiculopathy; | | | | [place], | [address] [place] | Foraminal stenosis | | | | [place] [address] | [place] [address] | of lumbar region; | | | | [phone] | [phone] | DDD (degenerative | | | | | | disc disease), | | | | | | lumbar; History of | | | | | | lumbar laminectomy - | | | | | | L4/L5 | +--------+---------+ + + + Social History + +-------+ [...] + + + as of this encounter Last Filed Vital Signs + + + + | Vital Sign | Reading | Time Taken | + + + + | Blood Pressure | 125/66 | 09/28/2017 1415 PST | + + + + | Pulse | 70 | 09/28/2017 1415 PST | + + + + | Temperature | - | - | + + + + | Respiratory Rate | - | - | + + + + | Oxygen Saturation | - | - | + + + + | Inhaled Oxygen | - | - | | Concentration | | | + + + + | Weight | 68 kg (150 lb) | 09/28/2017 1415 PST | + + + + | Height | 170.2 cm (5' 7") | 09/28/2017 1415 PST | + + + + | Body Mass Index | 23.49 | 09/28/2017 1415 PST | + + + + in this encounter Instructions Patient Instructions - Katalina Leal PA-C - 09/28/2017 1400 PST1) Transforaminal epi dural steroid injection 2) gabapentin for shingles and nerve pain Foraminal Stenosis/Radicular Pain: Foraminal stenosis is a narrowing of the spinal foramen, the hole through which passes a s julian nerve as it exits the spine. It is usually a form of degenerative spine disease which occurs slowly over time with wear and tear of the spinal column. Arthritic changes of the s pine, a herniated discs, soft tissue swelling and bony growth can all impinge on the formal foramen and compress the nerve. Because the narrowing (stenosis) of the foramen pinches a nerve, the primary symptoms relat ed to this disorder is directly related to that nerve which is affected. This obviously vari es depending on which foramina are involved. The pinched nerve can lead to basically two cl asses of symptoms. Symptoms include pain in the distribution of that nerve as well as numbne ss, tingling and or weakness can occur. Steroids are a very strong anti-inflammatory, this helps reduce pain by reducing swelling. Complications of steroids are bleeding, infection, and an increase of blood sugars if you are diabetic. USP risk can lead to osteoporosis which is why we limited the number of injections to 3 times per year. With an epidural injection, the nerve root that comes out of the spine and travels down your leg is targeted. The procedure is about 20 minutes long . You will lie on your back while x-rays are taken. Once the region is marked, it is numbe d and then injected with steroids. Follow-up at the hospital thirty minutes before your scheduled procedure to allow for time to check in. You may eat and drink as usual on the day of the procedure. If you are scheduled for an epidural injection do not take any blood thinning medications f or at least 5-7 days prior to your procedure unless you have been instructed by another phys ician not to discontinue blood thinning medications. If you are having a procedure other than an epidural injection (i.e. facet injection, media l branch block, SI joint injection or other joint injection) it is not absolutely necessary to discontinue blood thinning medications but doing so will decrease the risk of bruising or bleeding. If you have had a prior stroke, DVT or PE or if you are taking blood thinning medication be cause you have atrial fibrillation, a prosthetic cardiac valve replacement or heart stenting do not stop taking your blood thinning medications unless you have permission from your car diologist or primary care provider. All other medications should be taken as usual on the day of the procedure. Common blood thinning medications include: Aspirin (a baby aspirin is o.k.) Ibuprofen (Advil or Motrin) Naproxen (Aleve) Nabumetone (Relafen) Clopidogrel (Plavix) Dipyridamole/ASA (Aggrenox) Warfarin (Coumadin) Dabigatran (Pradaxa) Rivaroxaban (Xarelto) There are many others. If you have questions about your medications and whether or not you should stop any medications please contact our office. If you are having an epidural injection or if you take any medication for relaxation/sedati on on the day of the procedure you must provide a tractor driver teamster to take you home. For all procedur es it is recommended that someone else drive you home. in this encounter Progress Notes Katalina Leal PA-C - 09/28/2017 1400 PSTFormatting of this note may be different fro m the original. Katalina Leal PA-C [address], [address] [place] [address] FAX: PHYSICAL MEDICINE AND REHABILITATION H&P CHIEF COMPLAINT: Chief Complaint Patient presents with Back Pain low back radiating into left leg HISTORY OF PRESENT ILLNESS: The patient is a 77 y.o. male being seen today for complaints of left side low back pain into the entire left leg to the left ankle, along with left testi cular pain that began over 3 months ago. He has a history of lumbar laminectomy in 2013 wit luzma Hanson. This did help relieve his symptoms as he states he was able to walk better. H owever he does reports he only had right leg symptoms at this time. He reports a few months ago having testicular and groin pain along with entire left leg pain. Since the symptoms began, he has noticed that symptoms have been worsening. He describes th e pain as a aching, sharp and throbbing feeling. He rates the pain as severe. His symptoms w orsen with walking, prolonged sitting. His symptoms improve with nothing at this time. He use to take oxycodone but not anymore, he is now taking 150mg tramadol q4 hours. The patient also describes leg symptoms that occur on left side. The leg symptoms account for 100% of his symptoms. The leg symptoms are constant and the symptoms travels from the l eft low back into the left leg following the L5 dermatome, along with into the left testicle . The patient does not describe numbness of the legs. He does not report weakness of the le gs. He does not have bowel and bladder dysfunction. He does not have saddle anesthesia. He did say in the last 2 months a rash appears into the leg left buttocks and left lateral t high, this has also been associated with pain but no paresthesias. Treatments for these complaints have included surgery, use of narcotics and NSAIDS. Patient's medications, allergies, past medical, surgical, social and family histories were reviewed and updated as appropriate. PAST MEDICAL HISTORY: Past Medical History: Diagnosis Date Abdominal pain Actinic keratoses Aortic stenosis, severe Cataracts, bilateral Cerebrovascular accident (CVA) ([facility]) Chews tobacco Cholecystitis Constipation Coronary artery disease Cutaneous eruption Cutaneous eruption DDD (degenerative disc disease), lumbar 09/28/2017 Degeneration of lumbar intervertebral disc Depression Diabetes type 2, controlled ([facility]) Diplopia Foot pain, left Foraminal stenosis of lumbar region 09/28/2017 Gout Hemangioma Thoracic History of lumbar laminectomy - L4/L5 09/28/2017 Hypertension Hypothyroidism Ischemic heart disease Left lumbar radiculopathy 09/28/2017 Low back pain Lytic lesion of bone on x-ray [place] (myocardial infarction) 2007 Mixed hyperlipidemia MRSA (methicillin resistant staph aureus) culture positive Osteoarthritis of left knee Peptic ulcer Peripheral vascular disease ([facility]) Persistent testicular pain Left Radiculopathy of lumbar region Seborrheic keratosis Spondylolysis Superficial bruising of lower leg Thrombophlebitis Vasculitis of skin PAST SURGICAL HISTORY: Past Surgical History: Procedure Laterality Date APPENDECTOMY CARDIAC CATHERIZATION CORONARY ANGIOPLASTY WITH STENT PLACEMENT LITHOTRIPSY LUMBAR LAMINECTOMY Surgeon: Nathaniel Hanson MD done at [facility] Main OR SKIN TAG REMOVAL Left 05/26/2017 Lateral Thigh TONSILLECTOMY CURRENT MEDICATIONS: Current Outpatient Prescriptions Medication Sig Dispense Refill allopurinol (ZYLOPRIM) 100 mg tablet Take 100 mg by mouth Daily. amitriptyline (ELAVIL) 10 mg tablet Take 10 mg by mouth Daily. aspirin 81 MG tablet Take 81 mg by mouth Daily. docusate sodium (COLACE) 100 mg capsule Take 100 mg by mouth Daily. fish oil 1,000 mg capsule Take 2,000 mg by mouth 2 times daily. folic acid 1 mg tablet Take 1 mg by mouth Daily. gabapentin (NEURONTIN) 300 mg capsule 1 tab PO nightly x 5 days, then increase to 1 tab PO BID x 5 days. If continue to tolerate well, increase to 1 tab PO TID. 120 capsule 2 glipiZIDE (GLUCOTROL XL) 2.5 mg 24 hr tablet Take 5 mg by mouth Daily. hydroCHLOROthiazide 25 mg tablet Take 25 mg by mouth Daily. levothyroxine (SYNTHROID) 100 mcg tablet Take 100 mcg by mouth Daily. lidocaine (LIDODERM) 5% patch Place 1 patch onto the skin Daily. Apply for 12 hours, th en remove for 12 hours. niacin (NIASPAN) 500 mg CR tablet Take 500 mg by mouth Daily. oxyCODONE-acetaminophen (PERCOCET) 5-325 mg per tablet Take 1-2 tablets by mouth EVERY 4 TO 6 HOURS NEEDED. 0 raNITIdine (ZANTAC) 150 mg tablet Take 2 tablets by mouth Daily. rosuvastatin (CRESTOR) 10 mg tablet Take 10 mg by mouth Daily. sertraline (ZOLOFT) 100 mg tablet Take 100 mg by mouth Daily. sitagliptan-metFORMIN (JANUMET) 50-1000 MG per tablet Take 2 tablets by mouth Daily. No current facility-administered medications for this visit. ALLERGIES: Allergies Allergen Reactions Celecoxib Other (See Comments) Unknown reaction Erythromycin Diarrhea SOCIAL HISTORY: The patient reports that he quit smoking about 40 years ago. He smoked 2.00 packs per day. He has quit using smokeless tobacco. His smokeless tobacco use included Chew. He reports th at he drinks alcohol. He reports that he does not use drugs. FAMILY HISTORY: Family History Problem Relation Age of Onset High cholesterol Mother Diabetes Mother Heart attack Father Arthritis Father Diabetes Father Prostate cancer Neg Hx REVIEW OF SYSTEMS: GENERALLY: No fever, chills, no night sweats, no weight gain, +weight loss, no anemia, no fatigue. EYES: No eye problems, no impaired sight, +eye glasses/contacts, no eye injury, no double vision, no transient blindness. EARS, NOSE, THROAT and MOUTH: No change in sense taste/smell, +hearing difficulty, +ringin g in ears, no drainage from ears, no ear injury, +dizziness, no voice change, no difficulty swallowing, +snoring, no sleep apnea/CPAP, no sinus trouble, no dental work. NEUROMUSCULAR: No numbness/pain of arms, +numbness/pain of legs, no awake with numbness/pa in, +weakness, no muscle aching, +coordination difficulty, +change in walk, no head injury, +neck injury, no back injury, no pain in neck, +pain in back, no stroke, no fainting spells, no loss of consciousness, no tremor/shaking, no seizures, no headaches, no migraines, +jose ry loss, no speech difficulty, +confusion, +numbness of face. PSYCHIATRIC: +depression, no difficulty sleeping, no anxiety, no bipolar disorder. CARDIOVASCULAR/PULMONARY: +heart attack, +heart murmur, no fluttering heart, no shortness of breath, no cough, no Tuberculosis, no chest pain, no swelling ankles, no bloody coughing, no asthma, no COPD/emphysema. GASTROINTESTINAL: No bowel disease, no nausea/vomiting, no rectal bleeding/hemorroids, +co nstipation, no fecal/stool incontinence, no liver/gallbladder disease, no abdominal pain. KIDNEY DISEASE: +frequent urination, no painful/difficult with urination, no urinary incont inence, no bladder problems, +impotence, no irregular period, no vaginal discharge. ENDOCRINE: +diabetes, +thyroid disease, no osteoporosis/osteopenia, no drainage from breast s. INTEGUMENTARY/SKIN: No lump in breasts, no skin disease or skin changes, +rash/itch. HEMATOLOGIC: No enlarged lymph nodes, no ease or unusual bleeding, no cancer. RHEUMATOLOGIC: No joint pain/arthritis, no Rheumatoid Arthritis PHYSICAL EXAMINATION: Vitals: 09/28/17 1415 BP: 125/66 Pulse: 70 PainSc: 2 PainLoc: Leg Body mass index is 23.49 kg/m. GENERAL: The patient is well developed and well nourished. He does not appear uncomfortabl e when seated. HEENT: HEAD/FACE: EYES: EARS: NASOPHARNYX: OROPHARNYX: Normocephalic and atraumatic. There are no areas of recent trauma. Normal sclerae without icterus. No drainage or tenderness. Clear without drainage. Clear without erythema. SKIN Limited skin exam shows no significant rashes or lesions. There are scars in the lumb ar region. There is a diffuse erythematosa lacy plaque like rash to the left buttocks and le ft lateral thigh CHEST: The patient is in no acute respiratory distress with unlabored respirations. HEART: There is not lower extremity edema. ABDOMEN: The patient is not overweight. NEUROLOGIC: The patient is awake, alert, and oriented to time, place, person. He follows simple and complex commands. His speech is fluent. He comprehends speech well. He has no apparent deficits with short or intermediate memory. He has appropriate fund of knowledge Cranial nerves 2-12 appear grossly intact. Sensory exam does not show diminished sensation to light touch in the lower extremities. MUSCULOSKELETAL There is no tenderness in the midline of the cervical or thoracic spine. T here is no major palpable deformity of the spine. Straight leg raise and slump-sit are negative. Ronny's maneuver and impingement testing were negative for any groin pain. There was no tenderness to palpation over the greater tr ochanters or sacral sulci. The patient localized the majority of the pain to the left L5/S1 region down the left lateral thigh and into the top of the left foot. Lumbar facet loading was negative. Strength testing showed 5/5 strength throughout the lower extremities. The patient was able to heel and toe walk without difficulty. There was no redness, effusion, w armth or joint line tenderness in the knees or ankles. RADIOGRAPHIC REVIEW: The patient's imaging was reviewed in detail with the patient today during the visit. Lumb ar MRI from 2018 shows previous laminectomy at L4/L5 which did open the spinal cord substant ially, along with bilateral foraminal stenosis at L5/S1 and a disc bulge on the left at L2/L 3 that can be explaining his left testicular pain. ASSESSMENT: 1. Left lumbar radiculopathy 2. Foraminal stenosis of lumbar region 3. DDD (degenerative disc disease), lumbar 4. History of lumbar laminectomy - L4/L5 PLAN: 1. Patient with severe left leg pain following the L5 dermatome, along with left testicula r pain, he is failing conservative therapies and is not longer taking medications that contr ol his pain. We discussed doing a steroid epidural injection, I offered a left L5/S1 and le ft L2/L3 TFESI, we discussed this will be diagnostic along with therapeutic. This will be d one tomorrow, we also discussed filling out post injection pain long. 2. His symptoms may be related to a post herpetic pain, we discussed this, gabapentin was given for him to start tonight, 300mg qd and slowly taper up to 300mg TID. 3. Patient in one week is symptoms have not improved, and follow up in office in 2 weeks. ELECTRONICALLY SIGNED BY: Katalina Leal PA-C, 09/28/2017 CC: Florencio in this encounter Plan of Treatment +--------+---------+ + + + | Date | Type | Specialty | Care Team | Description | +--------+---------+ + + + | 02/09/ | Office | Neurosurgery | Heriberto Choudhury MD | | | 2018 | Visit | | [address] [place] | | | | | | [address] [place] | | | | | | [id number] | | | | | | | | | | | | Zackery Wei | | | | | | TYRA Menezes [address] | | | | | | [address] [place] [address] | | | | | | [place] | | | | | | [address] | | | | | | | | +--------+---------+ + + + as of this encounter Results [place] JOJO Lumbar Transforaminal (09/29/2017 1406) + + + | Specimen | Performing Laboratory | + + + | | [facility] | + + + + + | Narrative | + + | 09/29/2017 Transforaminal Epidural Steroid Injections Diagnosis: Lumbar | | radiculopathy ICD-10 Code M54.16 Calixto Osborn presents to the fluoroscopy | | suite [...] Anesthesia: Local 1% Lidocaine | + + in this encounter Visit Diagnoses + + | Diagnosis | + + | Left lumbar radiculopathy | + + | Thoracic or lumbosacral neuritis or radiculitis, unspecified | + + | Foraminal stenosis of lumbar region | + + | Spinal stenosis, lumbar region, without neurogenic claudication | + + | DDD (degenerative disc disease), lumbar | + + | Degeneration of lumbar or lumbosacral intervertebral disc | + + | History of lumbar laminectomy - L4/L5 | + +
--- OUTSIDE RECORDS SUMMARY | ~2017-11-11 | XMS | Clinical Summary ---
Demographics + + + | Address | [address] | | | [place] [address] | + + + | Home Phone | | + + + | Preferred Language | Unknown | + + + | Marital Status | | + + + | Amish Affiliation | 1041 | + + + | Race | Unknown | + + + | Ethnic Group | Unknown | + + + Author + + + | Author | [facility] | + + + | Organization | [facility] | + + + | Address | Unknown | + + + | Phone | Unavailable | + + + Support + + + + + | Name | Relationship | Address | Phone | + + + + + | Marci Wu | [place] | [address] | | | | | [place] | | | | | [address] | | + + + + + Care Team Providers + +------+ + | Care Architectural Manager Name | Role | Phone | + +------+ + | rBeezy Matias MD | PP | | + [...] + + | Coronary artery disease involving [place] coronary artery without | 02/01/2015 | | [...] | Hypertension | | + +---+ | [place] (myocardial infarction) | | + +---+ Encounters [...] Laboratory | + + + | | [address] [address] | + + + + + | [...] LA/Ao: 1.05 D-E Excursion: 1.94 cm E-F Clarke: 0.03 | | m/s TAPSE: 1.28 cm [...] Phil: | | 0.47 m/s TV Dec Clarke: 2.23 m/s2 TV Dec Time: 286.00 ms TV E Phil: 0.63 | | m/s TV E/A Ratio: 1.33 Computer Laboratory Technician: ANGELA Authenticated by: Arya Chris | | Report Date/Time: 10-28-2017 8:45:32 | + + + + | Procedure Note | + + | Kobi Cummings In - 10/28/2017 8:51 AM PDT Patient Name: Jose WU of | | : 1940Accession: [id number] Physician: Arya Chris | | ------REPORT | [...] (A-L): | | 41.67 ml/m2LAAs A2C: 21.98 [id number] A-L A2C: 74.32 mlLALs A2C: 5.51 cmLAAs A4C: | | 22.28 [id number] A-L A4C: 76.90 mlLALs A4C: 5.48 cmRAAd: 5.56 [id number] A-L: 7.54 | | mlRAEDV MOD: 7.87 mlRALd: 3.48 cmAo Diam: 3.64 cmAV Cusp: 0.86 cmLA Diam: 3.85 | | cmLA/Ao: 1.05 D-E Excursion: 1.94 cmE-F Clarke: 0.03 m/sTAPSE: 1.28 cmIVC | | diameter: 2.19 cmIVC collapse: 1.04 cmIVC % collapse: 49.97 %HR: 46.93 BPMAV | | maxP.34 mmHgAV meanP.11 mmHgAV Vmax: 4.19 m/Frank Vmean: 3.01 m/Frank VTI: | | 106.80 cmAVA Vmax: 1.06 cm2AVA (VTI): 1.11 yr2VCME Vmax: 0.00 cm2/m2AVAI (VTI): | | 0.00 cm2/m2LVCI Dopp: 3.41 l/rzdc3WYWC Dopp: 6.22 l/minHR: 52.38 BPMLVOT maxPG: | [...] | m/sTV A Phil: 0.47 m/sTV Dec Clarke: 2.23 m/s2TV Dec Time: 286.00 msTV E Phil: | | 0.63 m/sTV E/A Ratio: 1.33 Computer Laboratory Technician: MIKAuthenticated by: Arya Chris | | MDReport [...] | |D-E Excursion: 1.94 cm | |E-F Clarke: 0.03 m/s | |TAPSE: 1.28 cm | [...] A Phil: 0.47 m/s | |TV Dec Clarke: 2.23 m/s2 | |TV Dec Time: 286.00 ms | |TV E Phil: 0.63 m/s | |TV E/A Ratio: 1.33 | | | |Computer Laboratory Technician: ANGELA | |Authenticated by: Arya Chris MD [...] | xxxxxxxxxx | | | [address] | | | RE | | | | [place] [address] | | | IP-OP | | | | | + +--------+ +------+-------+ + | [facility] | YELLOW | [id number] | | [...] | Self [birth year] Home: | [address] | | | al/Fam | | 1940 | [phone] [place] [address] | | | laxmi | | | 09[birth year] | | + +--------+ +--------+ + +
--- OUTSIDE RECORDS SUMMARY | ~2017-11-11 | XMS | Encounter Summary ---
Demographics + + + | Address | [address] | | | [place] [address] | + + + | Home Phone | | + + + | Preferred Language | Unknown | + + + | Marital Status | | + + + | Adventist Affiliation | 1041 | + + + | Race | Unknown | + + + | Ethnic Group | Unknown | + + + Author + + + | Author | [facility] | | | and [place] | + + + | Organization | [facility] | | | and [place] | + + + | Address | Unknown | + + + | Phone | Unavailable | + + + Support + + +---------+ + | Name | Relationship | Address | Phone | + + +---------+ + | Marci Osborn | [place] | Unknown | | + + +---------+ + | Samantha Masters | Unknown | | + + +---------+ + Care Team Providers + +------+ + | Care Veneer Drier Feeder Name | Role | Phone | + +------+ + | Breezy Matias DO | PCP | | + +------+ + Encounter Details +--------+ + + + + | Date | Type | Department | Care Team | Description | +--------+ + + + + | 09/22/ | Abstract | [facility] | Mel, | | | 2017 | | PHYSIATRY [address] | Katalina ZEEDavidDevan [address] | | | | | [place], | [address] [place] | | | | | [place] [address] | [place] [address] | | | | | [phone] | [phone] | | | | | | | | +--------+ + + + + Social History + +-------+ +--------+------+ | Tobacco Use | Types | Packs/Day | Years | Date | | | | | Used | | + +-------+ +--------+------+ | Never Smoker | | | | | + +-------+ +--------+------+ + +------+---+---+ | Smokeless Tobacco: | Chew | | | | Former User | | | | + +------+---+---+ + + +---------+ + | Alcohol Use | Drinks/We | oz/Week | Comments | | | ek | | | + + +---------+ + | Yes | | | | + + +---------+ + [...] 2018 | Visit | | [address] [facility] | | | | | | [address] [place] | | | | | | [id number] | | | | | | | | | | | | Zackery Wei | | | | | | TYRA Menezes [address] | | | | | | [address] [place] [address] | | | | | | [place] | | | | | | [address] | | | | | | | | +--------+---------+ + + + as of this encounter Visit Diagnoses Not on filein this encounter"
--- OUTSIDE RECORDS SUMMARY | ~2017-11-11 | XMS | Encounter Summary ---
Demographics + + + | Address | [address] | | | [place] [address] | + + + | Home Phone | | + + + | Preferred Language | Unknown | + + + | Marital Status | | + + + | Religion Affiliation | 1041 | + + + | Race | Unknown | + + + | Ethnic Group | Unknown | + + + Author + + + | Author | [facility] | | | and [place] | + + + | Organization | [facility] | | | and [place] | [...] Team Providers + +------+ + | Care Breeding Manager Name | Role | Phone | + +------+ + | Breezy Matias DO | PCP | | + +------+ + Reason for Visit Service/Procedure (Urgent) +--------+--------+ + + + + | Status | Reason | Specialty | Diagnoses / | Referred By | Referred To | | | | | Procedures | Contact | Contact | +--------+--------+ + + + + | Closed | | Radiology | Diagnoses | | [facility] | | | | | Lumbar | [place], | [address] | | | | | radiculopath | Quentin Huang MD | [place], | | | | | y | [address] | [place] | | | | | Procedures | [place] | [address] | | | | | DC INJECT | [place] | Phone: | | | | | ANES/STEROID | [address] | [phone] | | | | | FORAMEN | Phone: | Fax: | | | | | LUMBAR/SACRA | [phone] | [phone] | | | | | L W IMG | Fax: | | | | | | GUIDE ,1 | [phone] | | | | | | LEVEL DC | | | | | | | INJECT | | | | | | | ANES/STEROID | | | | | | | FORAMEN | | | | | | | LUMBAR/SACRA | | | | | | | L W IMG | | | | | | | GUIDE ,EA | | | | | | | ADD LEVEL | | | | | | | DC | | | | | | | TRIAMCINOLON | | | | | | | E ACET INJ | | | | | | | NOS, 10 MG | | | | | | | Appt:3/6 | | | | | | | Left L2/3, | | | | | | | L5/S1 TFESI | | | +--------+--------+ + + + + Encounter Details +--------+ + + + + | Date | Type | Department | Care Team | Description | +--------+ + + + + | 09/29/ | Hospital | [facility] | Bogdanowicz, | Left lumbar | | 2018 | Encounter | MED CTR XRAY [address] | [place] | radiculopathy; | | | | [address] [place] | [address] [place] | Foraminal stenosis | | | | [place] [address] | [place] [address] | of lumbar region; | | | | [phone] | [phone] | DDD (degenerative | | | | | | disc disease), | | | | | High School Teacher, 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; History of | | | | | | lumbar laminectomy - | | | | | | L4/L5 | +--------+ + + + + Social [...] this encounter Last Filed Vital Signs + +---------+ + | Vital Sign | Reading | Time Taken | + +---------+ + | Blood Pressure | 156/67 | 09/29/2017 1432 PST | + +---------+ + | Pulse | - | - | + +---------+ + | Temperature | - | - | + +---------+ + | Respiratory Rate | - | - | + +---------+ + | Oxygen Saturation | - | - | + +---------+ + | Inhaled Oxygen | - | - | | Concentration | | | + +---------+ + | Weight | - | - | + +---------+ + | Height | - | - | + +---------+ + | Body Mass Index | - | - | + +---------+ + in this encounter Medications at Time of Discharge + + +---------+---------+ + + | Medication | Sig. | Disp. | Refills | Start | End Date | | | | | | Date | | + + +---------+---------+ + + | allopurinol | Take 100 mg by mouth | | | | | | (ZYLOPRIM) 100 mg | Daily. | | | | | | tablet | | | | | | + + +---------+---------+ + + | amitriptyline | Take 10 mg by mouth | | | | | | (ELAVIL) 10 mg | Daily. | | | | | | tablet | | | | | | + + +---------+---------+ + + | aspirin 81 MG | Take 81 mg by mouth | | | | | | tablet | Daily. | | | | | + + +---------+---------+ + + | docusate sodium | Take 100 mg by mouth | | | | | | (COLACE) 100 mg | Daily. | | | | | | capsule | | | | | | + + +---------+---------+ + + | fish oil 1,000 mg | Take 2,000 mg by | | | | | | capsule | mouth 2 times daily. | | | | | + + +---------+---------+ + + | folic acid 1 mg | Take 1 mg by mouth | | | | | | tablet | Daily. | | | | | + + +---------+---------+ + + | gabapentin | 1 tab PO nightly x 5 | 120 | 2 | 09/29/19 | | | (NEURONTIN) 300 mg | days, then increase | capsule | | 18 | | | capsule | to 1 tab PO BID x 5 | | | | | | | days. If continue | | | | | | | to tolerate well, | | | | | | | increase to 1 tab PO | | | | | | | TID. | | | | | + + +---------+---------+ + + | glipiZIDE | Take 5 mg by mouth | | | | | | (GLUCOTROL XL) 2.5 | Daily. | | | | | | mg 24 hr tablet | | | | | | + + +---------+---------+ + + | | Take 25 mg by mouth | | | | | | hydroCHLOROthiazide | Daily. | | | | | | 25 mg tablet | | | | | | + + +---------+---------+ + + | levothyroxine | Take 100 mcg by | | | | | | (SYNTHROID) 100 mcg | mouth Daily. | | | | | | tablet | | | | | | + + +---------+---------+ + + | lidocaine | Place 1 patch onto | | | | | | (LIDODERM) 5% patch | the skin Daily. | | | | | | | Apply for 12 hours, | | | | | | | then remove for 12 | | | | | | | hours. | | | | | + + +---------+---------+ + + | niacin (NIASPAN) | Take 500 mg by mouth | | | | | | 500 mg CR tablet | Daily. | | | | | + + +---------+---------+ + + | | Take 1-2 tablets by | | 0 | 02 | | | oxyCODONE-acetaminop | mouth EVERY 4 TO 6 | | | 18 | | | hen (PERCOCET) 5-325 | HOURS NEEDED. | | | | | | mg per tablet | | | | | | + + +---------+---------+ + + | raNITIdine | Take 2 tablets by | | | | | | (ZANTAC) 150 mg | mouth Daily. | | | | | | tablet | | | | | | + + +---------+---------+ + + | rosuvastatin | Take 10 mg by mouth | | | | | | (CRESTOR) 10 mg | Daily. | | | | | | tablet | | | | | | + + +---------+---------+ + + | sertraline | Take 100 mg by mouth | | | | | | (ZOLOFT) 100 mg | Daily. | | | | | | tablet | | | | | | + + +---------+---------+ + + | | Take 2 tablets by | | | | | | sitagliptan-metFORMI | mouth Daily. | | | | | | N (CHERISE) 50-1000 | | | | | | | MG per tablet | | | | | | + + +---------+---------+ + + as of this encounter Plan of Treatment +--------+---------+ + + + | Date | Type | Specialty | Care Team | Description | +--------+---------+ + + + | 02/09/ | Office | Neurosurgery | Heriberto Choudhury MD | | | 2018 | Visit | | [address] [facility] | | | | | | [address] [place] | | | | | | [address] | | | | | | | | | | | | Zackery Wei | | | | | | TYRA Menezes [address] | | | | | | [address] | | | | | | [place] | | | | | | [address] | | | | | | | [...] Lumbar | | radiculopathy ICD-10 Code M54.16 Calixtogolden Osborn presents to the fluoroscopy | | [...] lumbar laminectomy - L4/L5 | + + Administered Medications + +--------+ +-------+------+------+ | Medication Order | MAR | Action | Dose | Rate | Site | | | Action | Date | | | | + +--------+ +-------+------+------+ | dexamethasone (PF) 10 mg/mL | Given | 09/29/2017 | 15 mg | | | | injection 15 mg 15 mg, Other, | | 14:20 | | | | | ONCE, Tuesteban 09/29/17 at 1415, For 1 | | PST | | | | | dose | | | | | | + +--------+ +-------+------+------+ +---+---+ | | | +---+---+ + +-------+ +-------+---+---+ | iohexol (OMNIPAQUE 300) 300 | Given | 09/29/2017 | 4 mLs | | | | mg/mL injection 4 mL 4 mL, | | 14:15 | | | | | Other, ONCE, 09/29/17 at 1415, | | PST | | | | | For 1 dose | | | | | | + +-------+ +-------+---+---+ +---+---+ | | | +---+---+ + +-------+ +-------+---+---+ | lidocaine (PF) 1% injection 2 | Given | 09/29/2017 | 2 mLs | | | | mL 2 mL, Other, ONCE, 09/29/17 | | 14:20 | | | | | at 1415, For 1 dose | | PST | | | | + +-------+ +-------+---+---+ +---+---+ | | | +---+---+ + +-------+ +-------+---+ + | lidocaine buffered 1% injection | Given | 09/29/2017 | 6 mLs | | Other | | 6 mL 6 mL, Intradermal, ONCE, | | 14:10 | | | (Comment | | 09/29/17 at 1415, For 1 dose | | PST | | | ) | + +-------+ +-------+---+ + +---+---+ | | | +---+---+ in this encounter"
--- OUTSIDE RECORDS SUMMARY | ~2017-11-11 | XMS | Encounter Summary ---
Demographics + + + | Address | [address] | | | [place] [address] | + + + | Home Phone | | + + + | Preferred Language | Unknown | + + + | Marital Status | | + + + | Presybeterian Affiliation | 1041 | + + + | Race | Unknown | + + + | Ethnic Group | Unknown | + + + Author + + + | Author | [facility] | | | and [place] | + + + | Organization | [facility] | | | and [place] | [...] Team Providers + +------+ + | Care Electronic Coils Supervisor Name | Role | Phone | + +------+ + | Breezy Matias DO | PCP | | + +------+ + Encounter Details +--------+ + + + + | Date | Type | Department | Care Team | Description | +--------+ + + + + | 10/12/ | Episode | [facility] [place] [facility] | Ruth Ann Plummer | | | 2018 | Changes | [address] | A, RN | | | | | [address] [place] | | | | | | [place] [address] | | | | | | [phone] | | | +--------+ + + + [...] 2018 | Visit | | [address] [facility] | | | | | | [address] [place] | | | | | | [id number] | | | | | | | | | | | | Zackery Wei | | | | | | TYRA Menezes [address] | | | | | | [facility] [address] | | | | | | [place] | | | | | | [id number] | | | | | | | | +--------+---------+ + + + as of this encounter Visit Diagnoses Not on filein this encounter"
--- OUTSIDE RECORDS SUMMARY | ~2017-11-11 | XMS | Encounter Summary ---
Demographics + + + | Address | [address] | | | [place] [address] | + + + | Home Phone | | + + + | Preferred Language | Unknown | + + + | Marital Status | | + + + | Judaism Affiliation | 1041 | + + + | Race | Unknown | + + + | Ethnic Group | Unknown | + + + Author + + + | Author | [facility] | | | and [place] | + + + | Organization | [facility] | | | and [place] [...] Providers + +------+ + | Care Communications Professor Name | Role | Phone | + +------+ + | Breezy Matias DO | PCP | | + +------+ + Reason for Referral Diagnostic/Screening (Routine) + +--------+ + + + + | Status | Reason | Specialty | Diagnoses / | Referred By | Referred To | | | | | Procedures | Contact | Contact | + +--------+ + + + + | Pending | | Radiology | Procedures | Provider, | | | Review | | | MRI Lumbar | Historical, | | | | | | Spine wo | [address] | | | | | | Contrast | [address] | | | | | | | [place] | | | | | | | [address] | | + +--------+ + + + + Encounter Details +--------+ + + + + | Date | Type | Department | Care Team | Description | +--------+ + + + + | 09/17/ | Ancillary | DAVID ZAMORA | Provider, | | | 2018 | Orders | [facility] | MD [address]ash [address] | | | | | IMAGING | [place] | | | | | [phone] | [place] [address] | | +--------+ + + + + [...] [place] | | | | | | [address] | | | | | | | | | | | | Zackery Wei | | | | | | TYRA Menezes [address] | | | | | | [address] | | | | | | [place] | | | | | | [address] | | | | | | | | +--------+---------+ + + + as of this encounter Results MRI Lumbar Spine wo Contrast (07/14/2017 1445) + + + | Specimen | Performing Laboratory | + + + | | [facility] | + + + + + | Narrative | + + | External films for comparison only - no result from [place]. | + + in this encounter Visit Diagnoses Not on filein this encounter"
--- OUTSIDE RECORDS SUMMARY | ~2017-11-11 | XMS | Encounter Summary ---
Demographics + + + | Address | [address] | | | [place] [address] | + + + | Home Phone | | + + + | Preferred Language | Unknown | + + + | Marital Status | | + + + | Methodist Affiliation | 1041 | + + + | Race | Unknown | + + + | Ethnic Group | Unknown | + + + Author + + + | Author | [facility] | | | and [place] | + + + | Organization | [facility] | | | and [place] [...] Team Providers + +------+ + | Care Signals Intelligence Superintendent Name | Role | Phone | + +------+ + | Breezy Matias DO | PCP | | + +------+ + Reason for Visit + + + | Reason | Comments | + + + | Benign Prostatic | | | Hypertrophy | | + + + | Lower Urinary Tract | | | Symptoms | | + + + Evaluate & Treat (Routine) +--------+--------+ + + + + | Status | Reason | Specialty | Diagnoses / | Referred By | Referred To | | | | | Procedures | Contact | Contact | +--------+--------+ + + + + | Closed | | Urology | Diagnoses | [place], | [facility] [place] | | | | | Testicular | Breezy M, DO | Urology [address] | | | | | pain | [address] [address] | | | | | | [address] | [address] | | | | | | [address] | [place], | | | | | | [place] | [place] [address] | | | | | | [place] [address] | Phone: | | | | | | Phone: | [phone] | | | | | | [phone] | Fax: | | | | | | Fax: | [phone] | | | | | | [phone] | | +--------+--------+ + + + + Encounter Details +--------+---------+ + + + | Date | Type | Department | Care Team | Description | +--------+---------+ + + + | 09/08/ | Office | [facility] | [place] | BPH with | | 2018 | Visit | [address] | MD Dai [address] | obstruction/lower | | | | [address] [place] | [address] | urinary tract | | | | [place] [address] | [place] | symptoms (Primary | | | | [phone] | [address] | Dx); Pyuria; Pre-op | | | | | | examination | +--------+---------+ + + + Social History [...] + + + | Blood Pressure | 118/52 | 09/08/2017 1320 PST | + + + + | Pulse | 64 | 09/08/2017 1320 PST | + + + + | Temperature | - | - | + + + + | Respiratory Rate | 16 | 09/08/20170 PST | + + + + | Oxygen Saturation | - | - | + + + + | Inhaled Oxygen | - | - | | Concentration | | | + + + + | Weight | 74.2 kg (163 lb 9.3 | 09/08/2017 1320 PST | | | oz) | | + + + + | Height | 168.9 cm (5' 6.5") | 09/08/2017 1320 PST | + + + + | Body Mass Index | 26.01 | 09/08/2017 1320 PST | + + + + in this encounter Progress Raul Moran MD - 09/08/2017 1330 PSTFormatting of this note may be different fr om the original. Chief Complaint Patient presents with Benign Prostatic Hypertrophy Lower Urinary Tract Symptoms HPI Calixto Osborn is a 77 y.o. male patient of Breezy Matias DO here today for a cystoscopy fo r post herpetic neuralgia. Consent form signed & time out form completed complains of lower urinary tract symptoms have gotten worse over the last several years LUTS: dribbling weak stream, hesitancy, frequency, nocturia 3-4 per night He denies any dysuria or hematuria. He has had no prior treatments including medications or prostate procedures AUA symptom score of 34 Today no change in symptoms, no gross hematuria, no dysuria, no fever or chills. He denies any incontinence Cystoscopy Preprocedure timeout was performed. The patient's genitals were then prepped and draped us ual fashion. 10 mL's of viscous lidocaine was instilled per urethra. The scope was then in troduced into the urethra. The anterior urethra was grossly normal. Tthe posterior urethra was noted for significant trilobar hyperplasia. Upon entering the bladder monae cystoscopy was performed. Bilateral UOs were identified in the normal anatomic position effluxing clear u rine.3-4+ trabeculations were noted as well as severel wide mouth diverticulae and multiple cellules. There are no mucosal abnormalities seen. The scope was then removed and the kevin ent tolerated the procedure well. Assessment Calixto was seen today for benign prostatic hypertrophy and lower urinary tract symptoms. Diagnoses and all orders for this visit: BPH with obstruction/lower urinary tract symptoms - Case request: TURP; N/A Pyuria - POCT Urinalysis Dipstick Automated - Urinalysis, Microscopic Only, with Culture if Indicated Pre-op examination Plan Plan for TURP to be performed at the hospital on October 15. At the end of the procedure cat heter be placed. Patient return to clinic in 5 days for catheter removal. We discussed risks of the procedure including incontinence, ED, retrograde ejaculation, ure thral stricture, need for further procedures. We'll obtain preoperative labs as well as an EKG. Patient will stop taking fish oil and as pirin one week prior to procedure and will not take any of his diabetic medications the morn ing of the surgery. Past Medical History Past Medical History: Diagnosis Date Actinic keratoses Aortic stenosis, severe Cataracts, bilateral Cholecystitis Coronary artery disease Cutaneous eruption Degeneration of lumbar intervertebral disc Diabetes type 2, controlled (HCC) Diplopia Foot pain, left Gout Hemangioma Thoracic Hypertension Hypothyroidism Ischemic heart disease Low back pain IA (myocardial infarction) 2007 Mixed hyperlipidemia MRSA (methicillin resistant staph aureus) culture positive Osteoarthritis Left Knee Peptic ulcer Spondylolysis Thrombophlebitis Past Surgical History Past Surgical History: Procedure Laterality Date APPENDECTOMY CARDIAC CATHERIZATION CORONARY ANGIOPLASTY WITH STENT PLACEMENT LITHOTRIPSY LUMBAR LAMINECTOMY Surgeon: Nathaniel Hanson MD done at [facility] Main OR SKIN TAG REMOVAL Left 05/26/2017 Lateral Thigh TONSILLECTOMY Family History: Family History Problem Relation Age of Onset High cholesterol Mother Heart attack Father Prostate cancer Neg Hx Social History: Social History Social History Marital status: Spouse name: N/A Number of children: N/A Years of education: N/A Social History Main Topics Smoking status: Never Smoker Smokeless tobacco: Former User Types: Chew Alcohol use Yes Drug use: Yes Types: Methamphetamines Sexual activity: Not Asked Other Topics Concern None Social History Narrative None Allergies Allergen Reactions Celecoxib Other (See Comments) Unknown reaction Erythromycin Diarrhea Medications: Current Outpatient Prescriptions: allopurinol (ZYLOPRIM) 100 mg tablet, Take 100 mg by mouth Daily., Disp: , Rfl: amitriptyline (ELAVIL) 10 mg tablet, Take 10 mg by mouth Daily., Disp: , Rfl: aspirin 81 MG tablet, Take 81 mg by mouth Daily., Disp: , Rfl: fish oil 1,000 mg capsule, Take 2,000 mg by mouth 2 times daily., Disp: , Rfl: folic acid 1 mg tablet, Take 1 mg by mouth Daily., Disp: , Rfl: glipiZIDE (GLUCOTROL XL) 2.5 mg 24 hr tablet, Take 5 mg by mouth Daily., Disp: , Rfl: hydroCHLOROthiazide 25 mg tablet, Take 25 mg by mouth Daily., Disp: , Rfl: levothyroxine (SYNTHROID) 100 mcg tablet, Take 100 mcg by mouth Daily., Disp: , Rfl: lidocaine (LIDODERM) 5% patch, Place 1 patch onto the skin Daily. Apply for 12 hours, then remove for 12 hours., Disp: , Rfl: niacin (NIASPAN) 500 mg CR tablet, Take 500 mg by mouth Daily., Disp: , Rfl: oxyCODONE-acetaminophen (PERCOCET) 5-325 mg per tablet, Take 1-2 tablets by mouth EVER Y 4 TO 6 HOURS NEEDED., Disp: , Rfl: 0 raNITIdine (ZANTAC) 150 mg tablet, Take 2 tablets by mouth Daily., Disp: , Rfl: rosuvastatin (CRESTOR) 10 mg tablet, Take 10 mg by mouth Daily., Disp: , Rfl: sertraline (ZOLOFT) 100 mg tablet, Take 100 mg by mouth Daily., Disp: , Rfl: sitagliptan-metFORMIN (JANUMET) 50-1000 MG per tablet, Take 2 tablets by mouth Daily., Disp: , Rfl: ROS Gen.: No fever no chills Cardiac: No chest pain or shortness of breath Pulmonary: No cough no wheeze GI: No nausea no vomiting Objective BP 118/52 | Pulse 64 | Resp 16 | Ht 1.689 m (5' 6.5") | Wt 74.2 kg (163 lb 9.3 oz) | B IA 26.01 kg/m General Appearance: Alert, cooperative, no distress, appears stated age Head: Normocephalic, without obvious abnormality, atraumatic Eyes: PERRL, conjunctiva/corneas clear, EOM's intact Throat: Lips, mucosa, and tongue normal; poor dentition which mucus membranes Neck: Supple, symmetrical, no adenopathy Lungs: Regular, unlabored breathing MS patient reports pain with very light pressure on the skin. No gross deformity seen. N o spinal tenderness Normal external genitalia, no erythema, edema or rash Abdomen: Soft, non-tender, no masses Extremities: Extremities normal, atraumatic, no cyanosis, clubbing, or edema Pulses: Radial pulses 2+ and symmetric Skin: Warm and dry Lymph nodes: Cervical and supraclavicular nodes normal Neurologic: Gait normal, CN 2-12 grossly intact; Strength and sensation grossly normal in b ilateral upper and lower extremities Data: CT scan reports were reviewed from April and June 2017. These reports reveal no evid ence of hydronephrosis kidney stone or renal mass. Results for orders placed or performed in visit on 09/08/17 Urinalysis, Microscopic Only, with Culture if Indicated Result Value Ref Range WBC UA 0-2 0 - 2 /HPF RBC UA 0-2 0 - 2 /HPF SQUAMOUS EPITHELIAL UA 2-5 (A) 0 - 2 /LPF RENAL EPITHELIAL UA 0-2 0 - 2 /HPF BACTERIA UA Negative Negative /HPF MUCUS UA Present (A) Negative /LPF POCT Urinalysis Dipstick Automated Result Value Ref Range Color, UA, POC Susan (A) Yellow, Light Yellow Clarity, UA, POC Clear Glucose, UA, POC Negative Negative Bilirubin, UA, POC Small (A) Negative Ketones, UA, POC Trace (A) Negative, 100 mg/dL Specific Scribner, UA, POC 1.020 1.001 - 1.030 Blood, UA, POC Negative Negative pH, UA, POC 6.0 5.0, 6.0, 7.0, 8.0, 5.5, 6.5, 7.5 Protein, UA, POC Trace (A) Negative Urobilinogen, UA, POC 0.2 0.2, Negative, Normal, < 0.2 mg/dL, 1 mg/dL, < 0.2 E.U./dl, 1.0 E.U./dL, 0.2 mg/dL Nitrite, UA, POC Negative Negative Leukocyte Esterase, UA, POC Trace (A) Negative RED SUB UA ICTOTEST Negative REMARK No results found for: EVER Breezy Matias DO's notes were reviewed in clinic today. Return in about 4 weeks (around 10/06/2017).. CC: Breezy Matias DO in this encounter Plan of Treatment +--------+---------+ + + + | Date | Type | Specialty | Care Team | Description | +--------+---------+ + + + | 02/09/ | Office | Neurosurgery | Heriberto Choudhury MD | | | 2018 | Visit | | [address] | | | | | | [address] [place] | | | | | | [address] | | | | | | | | | | | | Zackery Wei | | | | | | TYRA Menezes [address] | | | | | | [address] | | | | | | [place] | | | | | | [address] | | | | | | | | +--------+---------+ + + + as of this encounter Results Urinalysis, Microscopic Only, with Culture if Indicated [...] + | Urine - Urine, clean | [facility] [address]anna [address] | | catch | [place] [address] | + + + POCT Urinalysis Dipstick Automated (09/08/2017 1327) + + + + | Component | [...] | + + + + | Specific Scribner, | 1.020 | 1.001 - 1.030 | [...] | Urine | | + + + IMAGING REPORT - EXTERNAL SCAN (07/14/2017) + + | Narrative | + + | Ordered by an unspecified provider. | + + in this encounter Visit Diagnoses + + | Diagnosis | + + | BPH with obstruction/lower urinary tract symptoms - Primary | + + | Hypertrophy of prostate with urinary obstruction and other lower urinary tract | | symptoms (LUTS) | + + | Pyuria | + + | Other nonspecific finding on examination of urine | + + | Pre-op examination | + + | Preoperative examination, unspecified | + +
--- OUTSIDE RECORDS SUMMARY | ~2017-11-11 | XMS | Encounter Summary ---
Demographics + + + | Address | [address] | | | [place] [address] | + + + | Home Phone | | + + + | Preferred Language | Unknown | + + + | Marital Status | | + + + | Gnosticism Affiliation | 1041 | + + + | Race | Unknown | + + + | Ethnic Group | Unknown | + + + Author + + + | Author | [facility] | | | and [place] | + + + | Organization | [facility] | | | and [place] [...] Team Providers + +------+ + | Care Embedded Engineer Name | Role | Phone | + [...] | | | | | pain | [address] | [address] | | | | | | [place] | [address] | | | | | | WAY | [place], | | | | | | [place] | [place] [address] | | | | | | [place] [address] | Phone: | | | | | | Phone: | [phone] | | | | | | [phone] | Fax: | | | | | | Fax: | [phone] | | | | | | [phone] | | +--------+--------+ + + + + Encounter Details +--------+---------+ + + + | Date | Type | Department | Care Team | Description | +--------+---------+ + + + | 09/08/ | Office | [facility] | [place] | BPH with | | 2018 | Visit | [address] | MD Dai [address] | obstruction/lower | | | | [address] [place] | [address] | urinary tract | | | | [place] [address] | [place] | symptoms (Primary | | | | [phone] | [address] | Dx); Pyuria; Pre-op | | | [...] Hypothyroidism Ischemic heart disease Low back pain [place] (myocardial infarction) 2007 Mixed hyperlipidemia MRSA (methicillin resistant staph aureus) culture positive Osteoarthritis Left Knee Peptic ulcer Spondylolysis Thrombophlebitis Past Surgical History Past Surgical History: Procedure Laterality Date APPENDECTOMY CARDIAC CATHERIZATION CORONARY ANGIOPLASTY WITH STENT PLACEMENT LITHOTRIPSY LUMBAR LAMINECTOMY Surgeon: Nathaniel Hanson MD done at [facility] Main OR SKIN TAG REMOVAL Left 05/26/2017 [...] kg (163 lb 9.3 oz) | B RI 26.01 kg/m General Appearance: Alert, cooperative, no [...] POC Trace (A) Negative, 100 mg/dL Specific [place], UA, POC 1.020 1.001 - 1.030 Blood, [...] 2018 | Visit | | [address] [facility] | | | | | | [address] [place] | | | | | | [address] | | | | | | | | | | | | Zackery Wei | | | | | | TYRA Menezes [address] | | | | | | [address] | | | | | | [place] | | | | | | [address] [...] + | Urine - Urine, clean | [facility] Tanna Allen | | catch | [place] [address] | + + + POCT Urinalysis Dipstick [...] | + + + + | Specific [place], | 1.020 | 1.001 - 1.030 | [...]
--- OUTSIDE RECORDS SUMMARY | ~2017-11-11 | XMS | Encounter Summary ---
Demographics + + + | Address | [address] | | | [place] [address] | + + + | Home Phone | | + + + | Preferred Language | Unknown | + + + | Marital Status | | + + + | Samaritan Affiliation | 1041 | + + + | Race | Unknown | + + + | Ethnic Group | Unknown | + + + Author + + + | Author | [facility] | | | and [place] | + + + | Organization | [facility] | | | and [...] Team Providers + +------+ + | Care Government Auditor Name | Role | Phone | + [...] | | | | | pain | [address] | [address] | | | | | | [place] | [address] | | | | | | WAY | [place], | | | | | | [place] | [place] [address] | | | | | | [place] [address] | Phone: | | | | | | Phone: | [phone] | | | | | | [phone] | Fax: | | | | | | Fax: | [phone] | | | | | | [phone] | | +--------+--------+ + + + + Encounter Details +--------+---------+ + + + | Date | Type | Department | Care Team | Description | +--------+---------+ + + + | 09/08/ | Office | [facility] | [place] | BPH with | | 2018 | Visit | [address] | MD Dai [address] | obstruction/lower | | | | [address] [place] | [address] | urinary tract | | | | [place] [address] | [place] | symptoms (Primary | | | | [phone] | [address] | Dx); Pyuria; Pre-op | | | [...] Hypothyroidism Ischemic heart disease Low back pain [place] (myocardial infarction) 2007 Mixed hyperlipidemia MRSA (methicillin resistant staph aureus) culture positive Osteoarthritis Left Knee Peptic ulcer Spondylolysis Thrombophlebitis Past Surgical History Past Surgical History: Procedure Laterality Date APPENDECTOMY CARDIAC CATHERIZATION CORONARY ANGIOPLASTY WITH STENT PLACEMENT LITHOTRIPSY LUMBAR LAMINECTOMY Surgeon: Nathaniel Hanson MD done at [facility] Main OR SKIN TAG REMOVAL [...] kg (163 lb 9.3 oz) | B [place] 26.01 kg/m General Appearance: Alert, cooperative, no [...] POC Trace (A) Negative, 100 mg/dL Specific [place], UA, POC 1.020 1.001 - 1.030 Blood, [...] 2018 | Visit | | [address] [facility] | | | | | | [address] | | | | | | [address] | | | | | | | | | | | | Zackery Wei | | | | | | TYRA Menezes [address] | | | | | | [address] | | | | | | [place] | | | | | | [address] [...] + | Urine - Urine, clean | [facility] Tanna Allen | | catch | [place] [address] | + + + POCT Urinalysis Dipstick [...] | + + + + | Specific [place], | 1.020 | 1.001 - 1.030 | [...]
--- OUTSIDE RECORDS SUMMARY | ~2017-11-11 | XMS | Encounter Summary ---
Demographics + + + | Address | [address] | | | [place] [address] | + + + | Home Phone | | + + + | Preferred Language | Unknown | + + + | Marital Status | | + + + | Judaism Affiliation | 1041 | + + + | Race | Unknown | + + + | Ethnic Group | Unknown | + + + Author + + + | Author | [facility] | | | and [place] | + + + | Organization | [facility] | | | and [...] Team Providers + +------+ + | Care Miniature Set Designer Name | Role | Phone | + +------+ + | Breezy Matias DO | PCP | | + +------+ + Encounter Details +--------+ + + + + | Date | Type | Department | Care Team | Description | +--------+ + + + + | 09/15/ | Episode | [facility] | Ruth Ann Plummer | | | 2018 | Changes | [address] | A, RN | | | | | [address] [place] | | | | | | [place] [address] | | | | | | [phone] | | | +--------+ + + + [...] [place] | | | | | | [address] | | | | | | | | +--------+---------+ + + + as of this encounter Visit Diagnoses Not on filein this encounter"
--- OUTSIDE RECORDS SUMMARY | ~2017-11-11 | XMS | Clinical Summary ---
Demographics + + + | Address | [address] | | | [place] [address] | + + + | Home Phone | | + + + | Preferred Language | Unknown | + + + | Marital Status | | + + + | Pentecostalism Affiliation | 1041 | + + + | Race | Unknown | + + + | Ethnic Group | Unknown | + + + Author + + + | Author | [facility] | | | and [place] | + + + | Organization | [facility] | | | and [place] | [...] Team Providers + +------+ + | Care Vacuum Form Operator Name | Role | Phone | + [...] | 09/02/2017 | + + + | [place] (myocardial infarction) ([facility]) | 09/02/2017 | + + + | Moderate aortic stenosis | 03/15/2015 | + + + + + | Overview: Last Assessment & Plan: | | Will do periodic monitoring | | Continue Statin, ASA. | + + + + + | Coronary artery disease involving newtok coronary artery without | 02/01/2015 | | [...] involving | | | | | | [place] coronary | | | | | | artery of [place] | | | | | | heart without angina | | | | | | pectoris | +--------+ + + + + | 10/06/ | Office | | [place] | Coronary artery | | 2017 | Visit | | MD Dai | disease involving | | | | | | [place] coronary | | | | | | artery of newtok | | | | | | heart [...] | radiculopathy; | | | | | Washer MachineBrennan | Foraminal stenosis | | | | [...] | Visit | | [address] [facility] | | | | | | [address] [place] | | | | | | [address] | | | | | | | | | | | | Zackery Wei | | | | | | TYRA Menezes [address] | | | | | | [facility] [address] | | | | | | [place] | | | | | | [address] | | | | | | | [...] | + + + | Blood | [facility] Tanna Allen | | | [place] [address] | + + + Basic Metabolic Panel [...] GLOMERULAR FILTRATION | >=60 mL/min/1.73m2 | | IRISH | RATE,ESTIMATED mL/min/1.83c9Hoyt than | | | | 60 Chronic [...] + + + | Blood | [facility] Tanna ChurchViktoriya Rivasar | | | [place] [address] | + + + ECG 12 lead [...] VIRGINIA GRADY MD | | | | ([id number]) on 10/07/2017 7:33:35 AM | | | |Confirmed by VIRGINIA GRADY MD ([id number]) on 10/07/2017 7:33:35 AM | | | [...] + | Urine - Urine, clean | [facility] Tanna Allen | | catch | [place] [address] | + + + POCT Urinalysis Dipstick [...] | + + + + | Specific [place], | 1.020 | 1.001 - 1.030 | [...] | | + +--------+ +--------+ +---------+ | [facility] | IHS | [id number] | Indemn [...] | Self | [birth year] | Home: | [address] | | | al/Fam | | 1940 | [phone] [place] [address] | | | laxmi | | | [address] | | + +--------+ +--------+ + +
--- OUTSIDE RECORDS SUMMARY | ~2017-11-11 | XMS | Encounter Summary ---
Demographics + + + | Address | [address] | | | [place] [address] | + + + | Home Phone | | + + + | Preferred Language | Unknown | + + + | Marital Status | | + + + | Denominational Affiliation | 1041 | + + + | Race | Unknown | + + + | Ethnic Group | Unknown | + + + Author + + + | Author | [facility] | | | and [place] | + + + | Organization | [facility] | | | and [place] [...] Team Providers + +------+ + | Care Burner Tender Name | Role | Phone | + +------+ + | Breezy Matias DO | PCP | | + +------+ + Reason for Referral Evaluate & Treat (Routine) +--------+ + + + + + | Status | Reason | Specialty | Diagnoses / | Referred By | Referred To | | | | | Procedures | Contact | Contact | +--------+ + + + + + | Closed | Specialty | Pain Medicine | Diagnoses | Reinier, | [facility] | | | Services | | Post | Raul | NEUROSCIENCE | | | Required | | herpetic | MD Dai | CENTER [address] | | | | | neuralgia | [address] | [facility] | | | | | Procedures | [address] | [address] | | | | | MO OFFICE | [facility] | [place], [place] | | | | | OUTPATIENT | [facility] [place] | [address] | | | | | VISIT 25 | [address] | Phone: | | | | | MINUTES | Phone: | [phone] | | | | | 09/10 - | [phone] | Fax: | | | | | PENDING | Fax: | [phone] | | | | | CLINICAL | [phone] | | | | | | STAFF | | | | | | | RESPONSE - | | | | | | | SCHEDULE PT. | | | +--------+ + + + + + Reason for Visit + + + | Reason | Comments | + + + | Testicle Pain | | + + + Evaluate & Treat (Routine) +--------+--------+ + + + + | Status | Reason | Specialty | Diagnoses / | Referred By | Referred To | | | | | Procedures | Contact | Contact | +--------+--------+ + + + + | Closed | | Urology | Diagnoses | Qua[place]s, | Spendlove, | | | | | Persistent | Breezy M, DO | [place], | | | | | testicular | [address] | MD [address] | | | | | pain NEW/ | [place] | [address] | | | | | PERSISTANT | [address] | [address] [place] | | | | | TESTICULAR | [place], | [place], [place] | | | | | PAIN/ | [place] [address] | [address] Phone: | | | | | [facility] | Phone: | [phone] | | | | | Procedures | [phone] | Fax: | | | | | NEW PATIENT | Fax: | [phone] | | | | | | [phone] | | +--------+--------+ + + + + Encounter Details +--------+---------+ + + + | Date | Type | Department | Care Team | Description | +--------+---------+ + + + | 09/02/ | Office | [facility] [place] [facility] | [place] | Post herpetic | | 2018 | Visit | [address] | MD Dai [address] | neuralgia (Primary | | | | [address] [place] | [address] | Dx); Testicle pain; | | | | [place] [address] | [place] | Benign prostatic | | | | [phone] | [address] | hyperplasia with | | | | | | lower urinary tract | | | | | | symptoms, symptom | | | | | | details unspecified | +--------+---------+ + + + Social History [...] + + + | Blood Pressure | 186/74 | 09/02/20173 PST | + + + + | Pulse | 55 | 09/02/20171032 PST | + + + + | Temperature | - | - | + + + + | Respiratory Rate | 16 | 09/02/20171032 PST | + + + + | Oxygen Saturation | - | - | + + + + | Inhaled Oxygen | - | - | | Concentration | | | + + + + | Weight | 73.2 kg (161 lb 6 | 09/02/2017 1033 PST | | | oz) | | + + + + | Height | 168.9 cm (5' 6.5") | 09/02/2017 1033 PST | + + + + | Body Mass Index | 25.66 | 09/02/2017 1033 PST | + + + + in this encounter Progress Notes Raul Hills MD - 09/02/2017 1030 PSTFormatting of this note may be different fr om the original. Chief Complaint Patient presents with Testicle Pain HPI Calixto Osborn is a 77 y.o. male patient of Breezy Matias, DO here today for evaluation of t esticle pain. Approximately 3 months ago patient began experiencing worsening left low back, buttock, leg pain and groin pain and testicle pain. He also noticed skin rash on the lateral leg as wel l as buttock. The pain is very debilitating and takes narcotics daily. He was originally diagnosed with shingles however he has seen a crane mechanic who stated that it was not shingles. He has be en seen by neurosurgery as well as a vascular surgeon for his current condition. He has bee n treated on 2 courses of antivirals for possible shingles. He describes the pain as a dull ache however at times it becomes sharp. Pain is constant a nd the only thing that seems to help his narcotic pain medicine. He states that eating make s the pain worse since over the last 3 months has not eaten much. He describes a 15-20 poun d weight loss. Also complains of lower urinary tract symptoms have gotten worse over the last several year s LUTS: dribbling weak stream, hesitancy, frequency, nocturia 3-4 per night He denies any dysuria or hematuria. He has had no prior treatments including medications or prostate procedures AUA symptom score o f34 Patient presents with multiple reports from multiple doctors. These are summarized below: Dr. 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 Recommended Elavil for postherpetic neuralgia CT scan the end and pelvis 07/18/2017 Diverticulosis without evidence of diverticulitis, renal cysts, resolution of left kidney s tone and atherosclerosis. Pathology report for skin biopsy showing a skin tag Dr. Oviedo vascular surgery April 2017 CTA chest abdomen aorta femoral runoff with contrast March 2017 shows 50% stenosis of t he left proximal SFA but not the cause of his leg pain. No vascular cause for his symptoms CT scan at that time showed normal right kidney and a left kidney with a simple cyst and co rtical thinning Assessment Calixto was seen today for testicle pain. Diagnoses and all orders for this visit: Post herpetic neuralgia Testicle pain - POCT Urinalysis Dipstick Automated Benign prostatic hyperplasia with lower urinary tract symptoms, symptom details unspecified Plan On exam the left testicle is palpably normal. It does demonstrate significant atrophy hoang liss this is normal for his age. Patient describes pain in both the ilioinguinal nerve area as well as the pudendal, lateral cutaneous and sciatica. I do not believe nerve entrapment is cause for all of his pain. I do not believe the testicle itself is the source of the pain. In cases such as this with chronic pain, removal of the testicle only improves pain approximately 50% of the time. In general most causes of left testicle pain without any significant testicular abnormality ar e due to other causes. The etiology for his pain is most consistent with a post herpetic ne uralgia. This can be persistent months after the initial rash. Before performing orchiecto my I would wait at least 6-9 months and then only if the pain is confined to the left testic le. In the meantime would recommend patient see a chronic pain specialist for further treat ment. LUTS: Patient is interested in seeking treatment for his lower urinary tract symptoms. At this time he is not interested in taking further medications. We'll perform cystoscopy to e valuate the bladder outlet. If there is a significant degree of obstruction seen we'll then schedule for transurethral resection of the prostate. Past Medical History Past Medical History: Diagnosis Date Actinic keratoses Aortic stenosis, severe Cataracts, bilateral Cholecystitis Coronary artery disease Cutaneous eruption Degeneration of lumbar intervertebral disc Diabetes type 2, controlled (HCC) Diplopia Foot pain, left Gout Hemangioma Thoracic Hypertension Hypothyroidism Ischemic heart disease Low back pain [place] (myocardial infarction) 2007 Mixed hyperlipidemia MRSA (methicillin resistant staph aureus) culture positive Osteoarthritis Left Knee Peptic ulcer Spondylolysis Thrombophlebitis Past Surgical History Past Surgical History: Procedure Laterality Date APPENDECTOMY CARDIAC CATHERIZATION CORONARY ANGIOPLASTY WITH STENT PLACEMENT LITHOTRIPSY LUMBAR LAMINECTOMY Surgeon: Nathaniel Hanson MD done at [facility] Main OR SKIN TAG REMOVAL Left 05/26/2017 Lateral Thigh TONSILLECTOMY Family History: Family History Problem Relation Age of Onset High cholesterol Mother Heart attack Father Social History: Social History Social History Marital [...] mg by mouth Daily., Disp: , Rfl: raNITIdine (ZANTAC) 150 mg tablet, Take 2 tablets by mouth Daily., Disp: , Rfl: rosuvastatin (CRESTOR) 10 mg tablet, Take 10 mg by mouth Daily., Disp: , Rfl: sertraline (ZOLOFT) 100 mg tablet, Take 100 mg by mouth Daily., Disp: , Rfl: sitagliptan-metFORMIN (JANUMET) 50-1000 MG per tablet, Take 2 tablets by mouth Daily., Disp: , Rfl: ROS Objective BP 186/74 | Pulse 55 | Resp 16 | Ht 1.689 m (5' 6.5") | Wt 73.2 kg (161 lb 6 oz) | BMI 25.66 kg/m General Appearance: Alert, cooperative, no distress, [...] of hydronephrosis kidney stone or renal mass. REVIEW OF SYSTEMS: [] All Negative Constitutional Symptoms: []Fever []Chills []Headache [x]Change in appetite [x] Change in weight [x] Change in marcy rgy []Other: Neurological: []Tremors [x]Dizzy Spells []Numbness/Tingling []Seizures []Other: Endocrine: []Excessive thirst []Too hot [x] Too cold [x]Tired/Sluggish Gastrointestinal: [x]Abdominal pain []Nausea/vomiting [x]Indigestion/heartburn [x]Change in stool size [x] C hange in stool shape [x] Change in stool color []Pain with swallowing []Other: Cardiovascular: []Chest Pain []Rapid heart rate []High blood pressure []Other: Integumentary: [x]Skin rash []Boils [x]Persistent itch []Other: Musculoskeletal: []Neck Pain [x]Joint swelling/pain [x]Back pain []Bone pain []Other: Respiratory: []Wheezing []Frequent cough []Shortness of breath []Other: Hematologic/Lymphatic: []Swollen glands []Blood clotting problems []Prior blood transfusions []Other: Psychologic: Are you generally satisfied with your life? no Do you feel severely depressed? yes Have you considered suicide? yes Other: Habits: Do you smoke? no AUA BPH SYMPTOM SCORE Not at all Less than 1 times in 5 Less than half the time About half the time More than half the time Almost always INCOMPLETE EMPTYING Over the past month, how often have you had the sensation of not empty ing your bladder completely after you finished urinating? [] 0 [] 1 [] 2 [] 3 [] 4 [x] 5 FREQUENCY Over the past month, how often have you had to urinate again less than 2 hours a fter you finished urinating? [] 0 [] 1 [] 2 [] 3 [] 4 [x] 5 INTERMITTENCY Over the past month, how often have you found you stopped and started again several times when you urinated? [] 0 [] 1 [] 2 [] 3 [] 4 [x] 5 URGE TO URINATE Over the past month, how often have you found it difficult to postpone uri nation? [] 0 [] 1 [] 2 [] 3 [] 4 [x] 5 WEAK STREAM Over the past month, how often have you had a weak urinary stream? [] 0 [] 1 [] 2 [] 3 [] 4 [x] 5 STRAINING Over the past month, how often have you had to push or strain to begin urination ? [] 0 [] 1 [] 2 [] 3 [] 4 [x] 5 None 1 time 2 times 3 times 4 times 5 or more times URINATING AT NIGHT Over the past month, how many times did you most typically get up to ur inated from the time you went to bed at night until the time you got up in the morning? [] 0 [] 1 [] 2 [] 3 [x] 4 [] 5 Symptom Score: Mild 1-7, Moderate 8-19, Severe 20-35 TOTAL: 34 BOTHER SCORE DUE TO URINARY SYMPTOMS Delighted Pleased Mostly Satisfied Mixed Mostly dissatisfied Unhappy Terrible BOTHERSOMENESS OF URINARY SYMPTOMS How would you feel if you had to live with your urinary condition the way it is now, no better, no worse, for the rest of your life? [] 0 [] 1 [] 2 [] 3 [] 4 [] 5 [x] 6 Results for orders placed or performed in visit on 09/02/17 POCT Urinalysis Dipstick Automated Result Value Ref Range Color, UA, POC Susan (A) Yellow, Light Yellow Clarity, UA, POC Clear Glucose, UA, POC Negative Negative Bilirubin, UA, POC Negative Negative Ketones, UA, POC Negative Negative, 100 mg/dL Specific [place], UA, POC 1.020 1.001 - 1.030 Blood, UA, POC Negative Negative pH, UA, POC 7.0 5.0, 6.0, 7.0, 8.0, 5.5, 6.5, 7.5 Protein, UA, POC Trace (A) Negative Urobilinogen, UA, POC 0.2 0.2, Negative, Normal, < 0.2 mg/dL, 1 mg/dL, < 0.2 E.U./dl, 1.0 E.U./dL, 0.2 mg/dL Nitrite, UA, POC Negative Negative Leukocyte Esterase, UA, POC Negative Negative RED SUB UA ICTOTEST Negative REMARK No results found for: EVER Matias DO's notes were reviewed in clinic today. Return for next available cysto.. CC: Breezy Matias DO in this encounter Plan of Treatment +--------+---------+ + + + | Date | Type | Specialty | Care Team | Description | +--------+---------+ + + + | 02/09/ | Office | Neurosurgery | Heriberto Choudhury MD | | | 2018 | Visit | | [address] | | | | | | [address] [place] | | | | | | [id number] | | | | | | | | | | | | Zackery Wei | | | | | | TYRA Menezes [address] | | | | | | [address] | | | | | | [place], [place] | | | | | | [address] | | | | | | | | +--------+---------+ + + + + +--------+ + + | Name | Priori | Associated Diagnoses | Order Schedule | | | ty | | | + +--------+ + + | [facility] | Routin | Post herpetic | Ordered: 09/02/2017 | | Referral | e | neuralgia | | + +--------+ + + as of this encounter Results POCT Urinalysis Dipstick Automated (09/02/2017 1044) + + + + | Component | Value | Ref Range | + + + + | Color, UA, POC | Susan (A) | Yellow, Light Yellow | + + + + | Clarity, UA, POC | Clear | | + + + + | Glucose, UA, POC | Negative | Negative | + + + + | Bilirubin, UA, POC | Negative | Negative | + + + + | Ketones, UA, POC | Negative | Negative, 100 mg/dL | + + + + | Specific [place], | 1.020 | 1.001 - 1.030 | | UA, POC | | | + + + + | Blood, UA, POC | Negative | Negative | + + + + | pH, UA, POC | 7.0 | 5.0, 6.0, 7.0, 8.0, | | [...] + + + | Leukocyte Esterase, | Negative | Negative | | UA, POC | | | + + + + | RED SUB UA | | | + + + + | ICTOTEST | | Negative | + + + + | REMARK | | | + + + + + + + | Specimen | Performing Laboratory | + + + | Urine | | + + + in this encounter Visit Diagnoses + + | Diagnosis | + + | Post herpetic neuralgia - Primary | + + | Herpes zoster with other nervous system complications | + + | Testicle pain | + + | Unspecified disorder of male genital organs | + + | Benign prostatic hyperplasia with lower urinary tract symptoms, symptom details | | unspecified | + +
--- OUTSIDE RECORDS SUMMARY | ~2017-11-11 | XMS | Encounter Summary ---
Demographics + + + | Address | [address] | | | [place] [address] | + + + | Home Phone | | + + + | Preferred Language | Unknown | + + + | Marital Status | | + + + | Mormonism Affiliation | 1041 | + + + | Race | Unknown | + + + | Ethnic Group | Unknown | + + + Author + + + | Author | [facility] | | | and [place] | + + + | Organization | [facility] | | | and [...] Team Providers + +------+ + | Care Department Chair Name | Role | Phone | + [...] | | | | | | [place] [address] | | | | | | [phone] | | | +--------+ + + + [...] [place] | | | | | | [address] | | | | | | | | +--------+---------+ + + + as of this encounter Visit Diagnoses Not on filein this encounter"
--- OUTSIDE RECORDS SUMMARY | ~2017-11-11 | XMS | Encounter Summary ---
Demographics + + + | Address | [address] | | | [place] [address] | + + + | Home Phone | | + + + | Preferred Language | Unknown | + + + | Marital Status | | + + + | Voodoo Affiliation | 1041 | + + + | Race | Unknown | + + + | Ethnic Group | Unknown | + + + Author + + + | Author | [facility] | | | and [place] | + + + | Organization | [facility] | | | and [...] Team Providers + +------+ + | Care Angle Bender Name | Role | Phone | + [...] | | | | | | [place] [address] | | | | | | [phone] | | | +--------+ + + + [...] [place] | | | | | | [address] | | | | | | | | +--------+---------+ + + + as of this encounter Visit Diagnoses Not on filein this encounter"
--- OUTSIDE RECORDS SUMMARY | ~2017-11-11 | XMS | Encounter Summary ---
Demographics + + + | Address | [address] | | | [place] [address] | + + + | Home Phone | | + + + | Preferred Language | Unknown | + + + | Marital Status | | + + + | Islam Affiliation | 1041 | + + + | Race | Unknown | + + + | Ethnic Group | Unknown | + + + Author + + + | Author | [facility] | | | and [place] | + + + | Organization | [facility] | | | and [...] Team Providers + +------+ + | Care Washcloth Folder Name | Role | Phone | + +------+ + | Breezy Matias DO | PCP | | + +------+ + Encounter Details +--------+ + + + + | Date | Type | Department | Care Team | Description | +--------+ + + + + | 10/15/ | Procedure | [facility] | | | | 2018 | Pass | [facility] | | | | | | [address] | | | | | | [place] | | | | | | [address] | | | | | | [phone] | | | +--------+ + + + [...] | Visit | | [address] [facility] | | | | | | [address] [place] | | | | | | [address] | | | | | | | | | | | | Zackery Wei | | | | | | Clif, PA-C [address] | | | | | | [address] | | | | | | [place] | | | | | | [address] | | | | | | | | +--------+---------+ + + + as of this encounter Visit Diagnoses Not on filein this encounter"
--- OUTSIDE RECORDS SUMMARY | ~2017-11-11 | XMS | Encounter Summary ---
Demographics + + + | Address | [address] | | | [place] [address] | + + + | Home Phone | | + + + | Preferred Language | Unknown | + + + | Marital Status | | + + + | Buddhist Affiliation | 1041 | + + + | Race | Unknown | + + + | Ethnic Group | Unknown | + + + Author + + + | Author | [facility] | + + + | Organization | [facility] | + + + | Address | Unknown | + + + | Phone | Unavailable | + + + Support + + + + + | Name | Relationship | Address | Phone | + + + + + | Marci Wu | [place] | [address] | | | | | [place] | | | | | [address] | | + + + + + Care Team Providers + +------+ + | Care Distribution Operations Manager Name | Role | Phone | + +------+ + | Breezy Matias MD | PCP | | + +------+ + Reason for Referral Echo (Routine) + +--------+ + + + + | Status | Reason | Specialty | Diagnoses / | Referred By | Referred To | | | | | Procedures | Contact | Contact | + +--------+ + + + + | Pending | | | Diagnoses | Aries, | | | Review | | | Aortic | Arya | | | | | | valve | MD [address] | | | | | | stenosis, | [place] | | | | | | etiology of | DRIVE | | | | | | cardiac | [place] | | | | | | valve | [address] | | | | | | disease | Phone: | | | | | | unspecified | [phone] | | | | | | Procedures | Fax: | | | | | | Echo | [phone] | | | | | | cardiac | | | | | | | adult | | | | | | | complete | | | + +--------+ + + + + Encounter Details +--------+ + + + + | Date | Type | Department | Care Team | Description | +--------+ + + + + | 10/27/ | Orders Only | [facility] | Aries | Aortic valve | | 2017 | | [facility] | Arya Reyes MD | stenosis, etiology | | | | CARDIOLOGY [address] | [address] | of cardiac valve | | | | [address] | [place] [address] | disease unspecified | | | | [place] [address] | [phone] | (Primary Dx) | | | | [phone] | | | +--------+ + + + + Social History + +-------+ +--------+------+ | Tobacco Use | Types | Packs/Day | Years | Date | | | | | Used | | + +-------+ +--------+------+ | Never Smoker | | | | | + +-------+ +--------+------+ + +-------+---+---+ | Smokeless Tobacco: | Snuff | | | | Current User | | | | + +-------+---+---+ + + +---------+ + | Alcohol Use [...] as of this encounter Plan of Treatment Not on fileas of this encounter Results Echo cardiac adult complete (10/27/2017 4:40 PM) + +-------+ + | Component | Value | Ref Range | + +-------+ + | LV EF | 55 | 50 - 70 % | + +-------+ + + + + | Specimen | Performing Laboratory | + + + | | [place] [address] | + + + + + | [...] LA/Ao: 1.05 D-E Excursion: 1.94 cm E-F Sar[place]: 0.03 | | m/s TAPSE: 1.28 cm [...] Phil: | | 0.47 m/s TV Dec [place]: 2.23 m/s2 TV Dec Time: 286.00 ms TV E Phil: 0.63 | | m/s TV E/A Ratio: 1.33 Epic Kaleidoscope Analyst: ANGELA Authenticated by: Arya Chris | | Report Date/Time: 10-28-2017 8:45:32 | + + + + | Procedure Note | + + | Kobi Cummings Results In - 10/28/2017 8:51 AM PDT Patient Name: Jose WU of | | : 1940Accession: [id number] Physician: Arya Chris | | MD ------REPORT | | ADDENDED------INDICATIONS AORTIC VALVE STENOSIS.CONCLUSIONS [...] (A-L): | | 41.67 ml/m2LAAs A2C: 21.98 [id number] A-L A2C: 74.32 mlLALs A2C: 5.51 cmLAAs A4C: | | 22.28 [id number] A-L A4C: 76.90 mlLALs A4C: 5.48 cmRAAd: 5.56 ep2KUIOR A-L: 7.54 | | mlRAEDV MOD: 7.87 mlRALd: 3.48 cmAo Diam: 3.64 cmAV Cusp: 0.86 cmLA Diam: 3.85 | | cmLA/Ao: 1.05 D-E Excursion: 1.94 cmE-F [place]: 0.03 m/sTAPSE: 1.28 cmIVC | | diameter: 2.19 cmIVC collapse: 1.04 cmIVC % collapse: 49.97 %HR: 46.93 BPMAV | | maxP.34 mmHgAV meanP.11 mmHgAV Vmax: 4.19 m/Frank Vmean: 3.01 m/Frank VTI: | | 106.80 cmAVA Vmax: 1.06 cm2AVA (VTI): 1.11 tk2QHEV Vmax: 0.00 cm2/m2AVAI (VTI): | | 0.00 cm2/m2LVCI Dopp: 3.41 l/rbvy7JRKG Dopp: 6.22 l/minHR: 52.38 BPMLVOT maxPG: | [...] | m/sTV A Phil: 0.47 m/sTV Dec Sarpy: 2.23 m/s2TV Dec Time: 286.00 msTV E Phil: | | 0.63 m/sTV E/A Ratio: 1.33 Epic Kaleidoscope Analyst: ANGELAAuthenticated by: Arya Chris | | MDReport Date/Time: [...] | |D-E Excursion: 1.94 cm | |E-F Sar[place]: 0.03 m/s | |TAPSE: 1.28 cm | [...] A Phil: 0.47 m/s | |TV Dec Sar[place]: 2.23 m/s2 | |TV Dec Time: 286.00 ms | |TV E Phil: 0.63 m/s | |TV E/A Ratio: 1.33 | | | |Epic Kaleidoscope Analyst: ANGELA | |Authenticated by: Arya Chris MD [...] equation is 1.1cm . | + + in this encounter Visit Diagnoses + + | Diagnosis | + + | Aortic valve stenosis, etiology of cardiac valve disease unspecified - Primary | + +"
--- OUTSIDE RECORDS SUMMARY | ~2017-11-11 | XMS | Encounter Summary ---
Demographics + + + | Address | [address] | | | [place] [address] | + + + | Home Phone | | + + + | Preferred Language | Unknown | + + + | Marital Status | | + + + | Episcopalian Affiliation | 1041 | + + + | Race | Unknown | + + + | Ethnic Group | Unknown | + + + Author + + + | Author | [facility] | | | and [place] | + + + | Organization | [facility] | | | and [place] [...] Team Providers + +------+ + | Care Heavy Antiarmor Weapons Infantryman Name | Role | Phone | + +------+ + | Breezy Matias DO | PCP | | + +------+ + Encounter Details +--------+ + + + + | Date | Type | Department | Care Team | Description | +--------+ + + + + | 03// | Preadmit | [facility] | [place] | Hypertension, | | 2018 | Visit | [facility] | MD Dai [address] | unspecified type | | | | CLINIC [address] | [address] | (Primary Dx); | | | | [place], [place] | [place], [place] | Coronary artery | | | | [address] | [address] | disease involving | | | | [phone] | | [place] coronary | | | | | | artery of [place] | | | | | | heart without angina | | | | | | pectoris | +--------+ + + + + Social [...] | | | | | [address] [place], [place] | | | | | | [address] | | | | | | | | | | | | Zackery Wei | | | | | | TYRA Menezes [address] | | | | | | [address] | | | | | | [place], [place] | | | | | | [address] | | | | | | | | +--------+---------+ + + + as of this encounter Results Hemoglobin (10/06/2017 1037) + + + + | Component | Value | Ref Range | + + + + | Hgb | 10.4 (L) | 13.5 - 18.0 g/dL | + + + + + + + | Specimen | Performing Laboratory | + + + | Blood | [facility] Tanna Allen | | | [place] [address] | + + + Basic Metabolic Panel [...] GLOMERULAR FILTRATION | >=60 mL/min/1.73m2 | | ARMENIAN | RATE,ESTIMATED mL/min/1.27i3Phjx than | | | | 60 Chronic [...] + + + | Blood | [facility] Tanna Allen | | | [place] [address] | + + + ECG 12 lead [...] VIRGINIA GRADY MD | | | | ([id number]) on 10/07/2017 7:33:35 AM | | | |Confirmed by VIRGINIA GRADY MD ([id number]) on 10/07/2017 7:33:35 AM | | | | | | + + +------ -----+ + + + | Specimen | Performing Laboratory | + + + | | [facility] | + + + in this encounter Visit Diagnoses + + | Diagnosis | + + | Hypertension, unspecified type - Primary | + + | 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
--- OUTSIDE RECORDS SUMMARY | ~2017-11-11 | XMS | Encounter Summary ---
Demographics + + + | Address | [address] | | | [place] [address] | + + + | Home Phone | | + + + | Preferred Language | Unknown | + + + | Marital Status | | + + + | Amish Affiliation | 1041 | + + + | Race | Unknown | + + + | Ethnic Group | Unknown | + + + Author + + + | Author | [facility] | | | and [place] | + + + | Organization | [facility] | | | and [place] | [...] Team Providers + +------+ + | Care Dairy Equipment Specialist Name | Role | Phone | + [...] [address] | | | | | [place] OFFICE | [facility] | [place], [place] | | | | | OUTPATIENT | [facility] [place] | [address] | | | | | VISIT 25 | [address] | Phone: | | | | | MINUTES | Phone: | [phone] | | | | | 09/10 - | [phone] | Fax: | | | | | PENDING | Fax: | [phone] | | | | | CLINICAL | [phone] | | | | | | STAFF [...] | | | | | testicular | [address] | MD [address] | | | | | pain NEW/ | [address] | [address] | | | | | PERSISTANT | WAY | [address] [place] | | | | | TESTICULAR | [place], | [place], [place] | | | | | PAIN/ | [place] [address] | [address] Phone: | | | | | QUAEMPTS | Phone: | [phone] | | | | | Procedures | [phone] | Fax: | | | | | NEW PATIENT | Fax: | [phone] | | | | | | [phone] | | +--------+--------+ + + + + [...] pain; | | | | [place] [address] | [place] | Benign prostatic | | | | [phone] | [address] | hyperplasia with | | | | [...] with shingles however he has seen a fiberglass dowel drawing operator who stated that it was not shingles. [...] Hypothyroidism Ischemic heart disease Low back pain [place] (myocardial infarction) 2007 Mixed hyperlipidemia MRSA (methicillin resistant staph aureus) culture positive Osteoarthritis Left Knee Peptic ulcer Spondylolysis Thrombophlebitis Past Surgical History Past Surgical History: Procedure Laterality Date APPENDECTOMY CARDIAC CATHERIZATION CORONARY ANGIOPLASTY WITH STENT PLACEMENT LITHOTRIPSY LUMBAR LAMINECTOMY Surgeon: Nathaniel Hanson MD done at [facility] Main OR SKIN TAG REMOVAL Left [...] UA, POC Negative Negative, 100 mg/dL Specific Allred, UA, POC 1.020 1.001 - 1.030 Blood, [...] [place] | | | | | | [id number] | | | | | | | | | | | | Zackery Wei | | | | | | TYRA Menezes [address] | | | | | | [address] | | | | | | [place], [place] | | | | | | [address] | | | | | | | [...] | + + + + | Specific Allred, | 1.020 | 1.001 - 1.030 | [...]
--- OUTSIDE RECORDS SUMMARY | ~2017-11-11 | XMS | Encounter Summary ---
Demographics + + + | Address | [address] | | | [place] [address] | + + + | Home Phone | | + + + | Preferred Language | Unknown | + + + | Marital Status | | + + + | Rastafari Affiliation | 1041 | + + + | Race | Unknown | + + + | Ethnic Group | Unknown | + + + Author + + + | Author | [facility] | + + + | Organization | [facility] [facility] | + + + | Address | Unknown | + + + | Phone | Unavailable | + + + Support + + + + + | Name | Relationship | Address | Phone | + + + + + | Marci Wu | [place] | [address] | | | | | [place] | | | | | [address] | | + + + + + Care Team Providers + +------+ + | Care Tobacco Acreage Measurer Name | Role | Phone | + [...] | | | valve | MD [address] | | | | | | stenosis, | [place] | | | | | | etiology of | DRIVE | | | | | | cardiac | [place] | | | | | | valve | [address] | | | | | | disease | Phone: | | | | | | unspecified | [phone] | | | | | | Procedures | Fax: | | | | | | Echo | [phone] | | | | | | cardiac | | | | | | | adult | | | | | | | complete | | | + +--------+ + + + + Echo (Routine) + +--------+ + + + [...] | | | valve | MD [address] | | | | | | stenosis, | [place] | | | | | | etiology of | DRIVE | | | | | | cardiac | [place] | | | | | | valve | [address] | | | | | | disease | Phone: | | | | | | unspecified | [phone] | | | | | | Procedures | Fax: | | | | | | Echo | [phone] | | | | | | cardiac | | | | | | | adult | | | | | | | complete | | | + +--------+ + + + + Reason for Visit Echo (Routine) + +--------+ + + + [...] | | | valve | MD [address] | | | | | | stenosis, | [place] | | | | | | etiology of | DRIVE | | | | | | cardiac | [place] | | | | | | valve | [address] | | | | | | disease | Phone: | | | | | | unspecified | [phone] | | | | | | Procedures | Fax: | | | | | | Echo | [phone] | | | | | | cardiac | | | | | | | adult | | | | | | | complete | | | + +--------+ + + + + Encounter Details +--------+ + + + + | Date | Type | Department | Care Team | Description | +--------+ + + + + | 10/27/ | Hospital | [facility] | Ravage, | Aortic valve | | 2018 | [facility] | [facility] | Arya Reyes MD | stenosis, etiology | | | | Echocardiography | [address] | of cardiac valve | | | | [address] | [place] [address] | disease unspecified | | | | [place] [address] | [phone] | | | | | [phone] | | | +--------+ + + + [...] + + + as of this encounter Medications at Time of Discharge + + +-------+---------+--------+ + | Medication | Sig. | Disp. | Refills | Start | End Date | | | | | | Date | | + + +-------+---------+--------+ + | allopurinol | Take 100 mg by mouth | | | | | | (ZYLOPRIM) 100 MG | daily. | | | | | | tablet | | | | | | + + +-------+---------+--------+ + | amitriptyline | Take 10 mg by mouth | | | | | | (ELAVIL) 10 MG | nightly. | | | | | | tablet | | | | | | + + +-------+---------+--------+ + | aspirin 325 MG | Take 325 mg by mouth | | | | | | tablet | daily with | | | | | | | breakfast. | | | | | + + +-------+---------+--------+ + | aspirin 81 MG | Take 81 mg by mouth | | | | | | tablet | daily. | | | | | + + +-------+---------+--------+ + | diclofenac | Take 75 mg by mouth | | | | | | (VOLTAREN) 75 MG EC | 2 (two) times daily. | | | | | | tablet | | | | | | + + +-------+---------+--------+ + | fish oil omega-3 | Take 1 g by mouth | | | | | | fatty acids 1000 MG | daily. | | | | | | capsule | | | | | | + + +-------+---------+--------+ + | folic acid | Take 1 mg by mouth | | | | | | (FOLVITE) 1 MG | daily. | | | | | | tablet | | | | | | + + +-------+---------+--------+ + | glipiZIDE | Take 5 mg by mouth | | | | | | (GLUCOTROL) 2.5 MG | daily. | | | | | | 24 hr tablet | | | | | | + + +-------+---------+--------+ + | | Take 25 mg by mouth | | | | | | hydrochlorothiazide | daily. | | | | | | (HYDRODIURIL) 25 MG | | | | | | | tablet | | | | | | + + +-------+---------+--------+ + | levothyroxine | Take 100 mcg by | | | | | | (SYNTHROID) 100 MCG | mouth every morning | | | | | | tablet | before breakfast. | | | | | + + +-------+---------+--------+ + | niacin (NIASPAN) | Take 500 mg by mouth | | | | | | 500 MG CR tablet | nightly. | | | | | + + +-------+---------+--------+ + | ramipril (ALTACE) | Take 10 mg by mouth | | | | | | 10 MG capsule | daily. | | | | | + + +-------+---------+--------+ + | ranitidine | Take 150 mg by mouth | | | | | | (ZANTAC) 150 MG | 2 (two) times | | | | | | tablet | daily. | | | | | + + +-------+---------+--------+ + | rosuvastatin | Take 10 mg by mouth | | | | | | (CRESTOR) 10 MG | nightly. | | | | | | tablet | | | | | | + + +-------+---------+--------+ + | sertraline | Take 100 mg by mouth | | | | | | (ZOLOFT) 100 MG | daily. | | | | | | tablet | | | | | | + + +-------+---------+--------+ + | | Take 1 tablet by | | | | | | sitagliptan-metformi | mouth 2 (two) times | | | | | | n (CHERISE) 50-1000 | daily with meals. | | | | | | MG per tablet | | | | | | + + +-------+---------+--------+ + as of this encounter Plan of Treatment Not on fileas of this encounter Procedures + +--------+ + + + | [...] | | + +--------+ + + + in this encounter Results Echo cardiac adult complete (10/27/2017 4:40 PM) + +-------+ + | Component | Value | Ref Range | + +-------+ + | LV EF | 55 | 50 - 70 % | + +-------+ + + + + | Specimen | Performing Laboratory | + + + | | [facility] [address] [place] [address] | + + + + + | [...] LA/Ao: 1.05 D-E Excursion: 1.94 cm E-F [place]: 0.03 | | m/s TAPSE: 1.28 cm [...] Phil: | | 0.47 m/s TV Dec [place]: 2.23 m/s2 TV Dec Time: 286.00 ms TV E Phil: 0.63 | | m/s TV E/A Ratio: 1.33 X Ray Equipment Tester: ANGELA Authenticated by: Arya Chris | | Report Date/Time: 10-28-2017 8:45:32 | + + + + | Procedure Note | + + | Kobi Cummings Results In - 10/28/2017 8:51 AM PDT Patient Name: Jose WU of | | : 1940Accession: [id number] Physician: Arya Chris | | ------REPORT | [...] (A-L): | | 41.67 ml/m2LAAs A2C: 21.98 [id number] A-L A2C: 74.32 mlLALs A2C: 5.51 cmLAAs A4C: | | 22.28 fj5HXBJP A-L A4C: 76.90 mlLALs A4C: 5.48 cmRAAd: 5.56 wt4EUPFF A-L: 7.54 | | mlRAEDV MOD: 7.87 mlRALd: 3.48 cmAo Diam: 3.64 cmAV Cusp: 0.86 cmLA Diam: 3.85 | | cmLA/Ao: 1.05 D-E Excursion: 1.94 cmE-F [place]: 0.03 m/sTAPSE: 1.28 cmIVC | | diameter: 2.19 cmIVC collapse: 1.04 cmIVC % collapse: 49.97 %HR: 46.93 BPMAV | | maxP.34 mmHgAV meanP.11 mmHgAV Vmax: 4.19 m/Frank Vmean: 3.01 m/Frank VTI: | | 106.80 cmAVA Vmax: 1.06 cm2AVA (VTI): 1.11 ho7MYTW Vmax: 0.00 cm2/m2AVAI (VTI): | | 0.00 cm2/m2LVCI Dopp: 3.41 l/jiuh2GDSQ Dopp: 6.22 l/minHR: 52.38 BPMLVOT maxPG: | [...] | m/sTV A Phil: 0.47 m/sTV Dec [place]: 2.23 m/s2TV Dec Time: 286.00 msTV E Phil: | | 0.63 m/sTV E/A Ratio: 1.33 X Ray Equipment Tester: Mundoticated by: Arya Chris | | MDReport Date/Time: [...] | |D-E Excursion: 1.94 cm | |E-F [place]: 0.03 m/s | |TAPSE: 1.28 cm | [...] A Phil: 0.47 m/s | |TV Dec [place]: 2.23 m/s2 | |TV Dec Time: 286.00 ms | |TV E Phil: 0.63 m/s | |TV E/A Ratio: 1.33 | | | |X Ray Equipment Tester: ANGELA | |Authenticated by: Arya Chris MD [...] stenosis, etiology of cardiac valve disease unspecified | + +"
--- OUTSIDE RECORDS SUMMARY | ~2017-11-11 | XMS | Encounter Summary ---
Demographics + + + | Address | [address] | | | [place] [address] | + + + | Home Phone | | + + + | Preferred Language | Unknown | + + + | Marital Status | | + + + | Voodoo Affiliation | 1041 | + + + | Race | Unknown | + + + | Ethnic Group | Unknown | + + + Author + + + | Author | [facility] | | | and [place] | + + + | Organization | [facility] | | | and [...] Team Providers + +------+ + | Care Yarder Puncher Name | Role | Phone | + +------+ + | Breezy Matias DO | PCP | | + +------+ + Encounter Details +--------+ + + + + | Date | Type | Department | Care Team | Description | +--------+ + + + + | 09/28/ | Abstract | [facility] | Mel, | | | 2017 | | PHYSIATRY [address] | Katalina TYRA [address] | | | | | [place], | [address] [place] | | | | | [place] [address] | [place] [address] | | | | | [phone] | [phone] | | | | | | | [...] | Visit | | [address] | | | | | | [address] [place], [place] | | | | | | [address] | | | | | | | | | | | | Zackery Wei | | | | | | TYRA Menezes [address] | | | | | | [address] | | | | | | [place], [place] | | | | | | [address] | | | | | | | | +--------+---------+ + + + as of this encounter Visit Diagnoses Not on filein this encounter"
--- OUTSIDE RECORDS SUMMARY | ~2017-11-11 | XMS | Encounter Summary ---
Demographics + + + | Address | [address] | | | [place] [address] | + + + | Home Phone | | + + + | Preferred Language | Unknown | + + + | Marital Status | | + + + | Hoahaoism Affiliation | 1041 | + + + | Race | Unknown | + + + | Ethnic Group | Unknown | + + + Author + + + | Author | [facility] | | | and [place] | + + + | Organization | [facility] | | | and [...] Providers + +------+ + | Care Communications And Signals Supervisor Name | Role | Phone | [...] | | | | | [address] | | | | | | [place] | | | | | | [address] | | | | | | [phone] | | | +--------+ + + + [...] | Visit | | [address] [facility] | | | | | | [address] [place] | | | | | | [address] | | | | | | | | | | | | Zackery Wei | | | | | | Clif, PA-C [address] | | | | | | [address] | | | | | | [place] | | | | | | [address] | | | | | | | | +--------+---------+ + + + as of this encounter Visit Diagnoses Not on filein this encounter"
--- OUTSIDE RECORDS SUMMARY | ~2017-11-11 | XMS | Encounter Summary ---
Demographics + + + | Address | [address] | | | [place] [address] | + + + | Home Phone | | + + + | Preferred Language | Unknown | + + + | Marital Status | | + + + | Worship Affiliation | 1041 | + + + | Race | Unknown | + + + | Ethnic Group | Unknown | + + + Author + + + | Author | [facility] | | | and [place] | + + + | Organization | [facility] | | | and [place] [...] Team Providers + +------+ + | Care Supervisor Painting Name | Role | Phone | + [...] [address] | | | | | [facility] OFFICE | [facility] | [place], [place] | | | | | OUTPATIENT | [facility] [place] | [address] | | | | | VISIT 25 | [address] | Phone: | | | | | MINUTES | Phone: | [phone] | | | | | 09/10 - | [phone] | Fax: | | | | | PENDING | Fax: | [phone] | | | | | CLINICAL | [phone] | | | | | | STAFF [...] | | | | | testicular | [address] | MD [address] | | | | | pain NEW/ | [address] | [address] | | | | | PERSISTANT | WAY | [address] [place] | | | | | TESTICULAR | [place], | [place], [place] | | | | | PAIN/ | [place] [address] | [address] Phone: | | | | | QUAEMPTS | Phone: | [phone] | | | | | Procedures | [phone] | Fax: | | | | | NEW PATIENT | Fax: | [phone] | | | | | | [phone] | | +--------+--------+ + + + + [...] pain; | | | | [place] [address] | [place] | Benign prostatic | | | | [phone] | [address] | hyperplasia with | | | | [...] with shingles however he has seen a pharmaceutical scientist who stated that it was not shingles. [...] Hypothyroidism Ischemic heart disease Low back pain [place] (myocardial infarction) 2007 Mixed hyperlipidemia MRSA (methicillin resistant staph aureus) culture positive Osteoarthritis Left Knee Peptic ulcer Spondylolysis Thrombophlebitis Past Surgical History Past Surgical History: Procedure Laterality Date APPENDECTOMY CARDIAC CATHERIZATION CORONARY ANGIOPLASTY WITH STENT PLACEMENT LITHOTRIPSY LUMBAR LAMINECTOMY Surgeon: Nathaniel Hanson MD done at [facility] Main OR SKIN TAG REMOVAL Left [...] UA, POC Negative Negative, 100 mg/dL Specific [place], UA, POC 1.020 1.001 - 1.030 Blood, [...] [place] | | | | | | [id number] | | | | | | | | | | | | Zackery Wei | | | | | | TYRA Menezes [address] | | | | | | [address] | | | | | | [place], [place] | | | | | | [address] | | | | | | | [...] | + + + + | Specific [place], | 1.020 | 1.001 - 1.030 | [...]
--- OUTSIDE RECORDS SUMMARY | ~2017-11-11 | XMS | Encounter Summary ---
Demographics + + + | Address | [address] | | | [place] [address] | + + + | Home Phone | | + + + | Preferred Language | Unknown | + + + | Marital Status | | + + + | Gnosticism Affiliation | 1041 | + + + | Race | Unknown | + + + | Ethnic Group | Unknown | + + + Author + + + | Author | [facility] | | | and [place] | + + + | Organization | [facility] | | | and [...] Team Providers + +------+ + | Care Last Cleaner Name | Role | Phone | + [...] | | | Rehabilitatio | (degenerativ | [address] | [address] | | | | n | e disc | [address] | [address] | | | | | disease), | WAY | [place], [place] | | | | | lumbar Low | [place], | [address] Phone: | | | | | back pain | [place] [address] | [phone] | | | | | Lumbar | Phone: | Fax: | | | | | radiculopath | [phone] | [phone] | | | | | y | Fax: | | | | | | Procedures | [phone] | | | | | | DOS 09/28/17 | | | +--------+--------+ + + + + Encounter Details +--------+---------+ + + + | Date | Type | Department | Care Team | Description | +--------+---------+ + + + | 09/28/ | Office | [facility] | Scarletdanoemilycz, | Left lumbar | | 2017 | Visit | PHYSIATRY [address] | TYRA [address] | radiculopathy; | | | | [place], | [address] [place] | Foraminal stenosis | | | | [place] [address] | [place] [address] | of lumbar region; | | | | [phone] | [phone] | DDD (degenerative | | | | [...] of blood sugars if you are diabetic. skilled nursing risk can lead to osteoporosis which is [...] of the procedure you must provide a seasonal delivery driver to take you home. For all procedur es it is recommended that someone else drive you home. in this encounter Progress Notes Katalina Leal PA-C - 09/28/2017 1400 PSTFormatting of this note may be different fro m the original. Katalina Leal PA-C [address] [place] [address] FAX: PHYSICAL MEDICINE AND REHABILITATION H&P CHIEF [...] stenosis, severe Cataracts, bilateral Cerebrovascular accident (CVA) ([facility]) Chews tobacco Cholecystitis Constipation Coronary artery disease Cutaneous eruption Cutaneous eruption DDD (degenerative disc disease), lumbar 09/28/2017 Degeneration of lumbar intervertebral disc Depression Diabetes type 2, controlled ([facility]) Diplopia Foot pain, left Foraminal stenosis of lumbar region 09/28/2017 Gout Hemangioma Thoracic History of lumbar laminectomy - L4/L5 09/28/2017 Hypertension Hypothyroidism Ischemic heart disease Left lumbar radiculopathy 09/28/2017 Low back pain Lytic lesion of bone on x-ray [place] (my[place] infarction) 2007 Mixed hyperlipidemia MRSA (methicillin resistant staph aureus) culture positive Osteoarthritis of left knee Peptic ulcer Peripheral vascular disease ([facility]) Persistent testicular pain Left Radiculopathy of lumbar region Seborrheic keratosis Spondylolysis Superficial bruising of lower leg Thrombophlebitis Vasculitis of skin PAST SURGICAL HISTORY: Past Surgical History: Procedure Laterality Date APPENDECTOMY CARDIAC CATHERIZATION CORONARY ANGIOPLASTY WITH STENT PLACEMENT LITHOTRIPSY LUMBAR LAMINECTOMY Surgeon: Nathaniel Hanson MD done at [facility] Main OR SKIN TAG REMOVAL Left [...] has no apparent deficits with short or snf memory. He has appropriate fund of knowledge [...] [place] | | | | | | [id number] | | | | | | | | | | | | Zackery Wei | | | | | | TYRA Menezes [address] | | | | | | [address] | | | | | | [place] | | | | | | [address] | | | | | | | [...]
--- OUTSIDE RECORDS SUMMARY | ~2017-11-11 | XMS | Encounter Summary ---
Demographics + + + | Address | [address] | | | [place] [address] | + + + | Home Phone | | + + + | Preferred Language | Unknown | + + + | Marital Status | | + + + | Jainism Affiliation | 1041 | + + + | Race | Unknown | + + + | Ethnic Group | Unknown | + + + Author + + + | Author | [facility] [employer] | + + + | Organization | [facility] | + + + | Address | Unknown | + + + | Phone | Unavailable | + + + Support + + + + + | Name | Relationship | Address | Phone | + + + + + | Marci Wu | [place] | [address] | | | | | [place] | | | | | [address] | | + + + + + Care Team Providers + +------+ + | Care Acidizer Helper Name | Role | Phone | + [...] | | | valve | MD Amy [address] | | | | | | stenosis, | [place] | | | | | | etiology of | DRIVE | | | | | | cardiac | [place] | | | | | | valve | [address] | | | | | | disease | Phone: | | | | | | unspecified | [phone] | | | | | | Procedures | Fax: | | | | | | Echo | [phone] | | | | | | cardiac [...] | | | valve | MD [address] | | | | | | stenosis, | [place] | | | | | | etiology of | DRIVE | | | | | | cardiac | [place] | | | | | | valve | [address] | | | | | | disease | Phone: | | | | | | unspecified | [phone] | | | | | | Procedures | Fax: | | | | | | Echo | [phone] | | | | | | cardiac [...] | | | | | valve | [address] | | | | | | disease | Phone: | | | | | | unspecified | [phone] | | | | | | Procedures | Fax: | | | | | | Echo | [phone] | | | | | | cardiac | | | | | | | adult | | | | | | | complete | | | + +--------+ + + + + Encounter Details +--------+ + + + + | Date | Type | Department | Care Team | Description | +--------+ + + + + | 10/27/ | Hospital | [facility] | Ravage, | Aortic valve | | 2018 | [facility] | [facility] | Arya Reyes MD | stenosis, etiology | | | | Echocardiography | [address] | of cardiac valve | | | | [address] | [place] [address] | disease unspecified | | | | [place] [address] | [phone] | | | | | [phone] | | | +--------+ + + + [...] + + | | RUSTAM [place] [address] [place] [address] | + + + + + | [...] LA/Ao: 1.05 D-E Excursion: 1.94 cm E-F [place]: 0.03 | | m/s TAPSE: 1.28 cm [...] Phil: | | 0.47 m/s TV Dec [place]: 2.23 m/s2 TV Dec Time: 286.00 ms TV E Phil: 0.63 | | m/s TV E/A Ratio: 1.33 Lead Medical Technologist: ANGELA Authenticated by: Arya Chris | | Report Date/Time: 10-28-2017 8:45:32 | + + + + | Procedure Note | + + | Kobi Cummings Results In - 10/28/2017 8:51 AM PDT Patient Name: Jose WU of | | : 1940Accession: [id number] Physician: Arya Chris | | ------REPORT | [...] (A-L): | | 41.67 ml/m2LAAs A2C: 21.98 [id number] A-L A2C: 74.32 mlLALs A2C: 5.51 cmLAAs A4C: | | 22.28 cx5VJIUD A-L A4C: 76.90 mlLALs A4C: 5.48 cmRAAd: 5.56 rh7PTAQG A-L: 7.54 | | mlRAEDV MOD: 7.87 mlRALd: 3.48 cmAo Diam: 3.64 cmAV Cusp: 0.86 cmLA Diam: 3.85 | | cmLA/Ao: 1.05 D-E Excursion: 1.94 cmE-F [place]: 0.03 m/sTAPSE: 1.28 cmIVC | | diameter: 2.19 cmIVC collapse: 1.04 cmIVC % collapse: 49.97 %HR: 46.93 BPMAV | | maxP.34 mmHgAV meanP.11 mmHgAV Vmax: 4.19 m/Frank Vmean: 3.01 m/Frank VTI: | | 106.80 cmAVA Vmax: 1.06 cm2AVA (VTI): 1.11 rb0KYYR Vmax: 0.00 cm2/m2AVAI (VTI): | | 0.00 cm2/m2LVCI Dopp: 3.41 l/wrai8VJNU Dopp: 6.22 l/minHR: 52.38 BPMLVOT maxPG: | [...] | m/sTV A Phil: 0.47 m/sTV Dec [place]: 2.23 m/s2TV Dec Time: 286.00 msTV E Phil: | | 0.63 m/sTV E/A Ratio: 1.33 Lead Medical Technologist: Mundoticated by: Arya Chris | | MDReport [...] | |D-E Excursion: 1.94 cm | |E-F [place]: 0.03 m/s | |TAPSE: 1.28 cm | [...] A Phil: 0.47 m/s | |TV Dec [place]: 2.23 m/s2 | |TV Dec Time: 286.00 ms | |TV E Phil: 0.63 m/s | |TV E/A Ratio: 1.33 | | | |Lead Medical Technologist: ANGELA | |Authenticated by: Arya Chris MD [...]
--- OUTSIDE RECORDS SUMMARY | ~2017-11-11 | XMS | Encounter Summary ---
Demographics + + + | Address | [address] | | | [place] [address] | + + + | Home Phone | | + + + | Preferred Language | Unknown | + + + | Marital Status | | + + + | Latter-Day Affiliation | 1041 | + + + | Race | Unknown | + + + | Ethnic Group | Unknown | + + + Author + + + | Author | [facility] | | | and [place] | + + + | Organization | [facility] | | | and [...] Team Providers + +------+ + | Care Wood Grinder Operator Name | Role | Phone | [...] | | | | | | [place] [address] | | | | | | [phone] | | | +--------+ + + + [...] [place] | | | | | | [address] | | | | | | | | +--------+---------+ + + + as of this encounter Visit Diagnoses Not on filein this encounter"
--- OUTSIDE RECORDS SUMMARY | ~2017-11-11 | XMS | Encounter Summary ---
Demographics + + + | Address | [address] | | | [place] [address] | + + + | Home Phone | | + + + | Preferred Language | Unknown | + + + | Marital Status | | + + + | Scientologist Affiliation | 1041 | + + + | Race | Unknown | + + + | Ethnic Group | Unknown | + + + Author + + + | Author | [facility] [employer] [facility] | + + + | Organization | [facility] [employer] [facility] | + + + | Address | Unknown | + + + | Phone | Unavailable | + + + Support + + + + + | Name | Relationship | Address | Phone | + + + + + | Marci Osborn | [place] | [address] | | | | | [place] | | | | | [address] | | + + + + + Care Team Providers + +------+ + | Care Parts Sales Counterperson Name | Role | Phone | + +------+ + | Breezy Matias MD | PCP | | + +------+ + Encounter Details +--------+ + + + + | Date | Type | Department | Care Team | Description | +--------+ + + + + | 11/10/ | Initial | [facility] | Myles Canchola MD | Nonrheumatic aortic | | 2018 | consult | Cardiothoracic | [address] | valve stenosis | | | | Surgery [address] | [place] [address] | (Primary Dx) | | | | [place] | [phone] | | | | | [place] | | | | | | [address] | | | | | | [phone] | | | +--------+ + + + [...] PM PDT | + + + + in this encounter Progress Notes Myles Canchola MD - 11/10/2017 12:00 PM PDTFormatting of this note may be different from bola orellana original. Subjective: . HPI 77 Y/O WM with history of COPD, HTN, DM, depression and known aortic stenosis anticipating back surgery. The patient was evaluated by Dr. Chris for the aortic stenosis.Echocardiogram on 10/27/17 shows peak/mean gradients of 70/41 consistent with severe aortic stenosis. He has developed exertional dyspnea/fatigue over the last 6 months. We are asked to evaluate the p atient for aortic valve surgery. Review of Systems Constitutional: Positive for fatigue. Negative for activity change, chills and fever. HENT: Negative for hearing loss, nosebleeds, sore throat, tinnitus and voice change. Eyes: Negative for pain, discharge, redness and visual disturbance. Respiratory: Positive for shortness of breath. Negative for cough, chest tightness and whee zing. Cardiovascular: Positive for leg swelling. Negative for chest pain and palpitations. Gastrointestinal: Negative for abdominal distention, abdominal pain, anal bleeding, blood i n stool, constipation, diarrhea and nausea. Genitourinary: Positive for difficulty urinating (BPH). Negative for dysuria, frequency, he maturia and urgency. Musculoskeletal: Positive for back pain. Negative for arthralgias and neck stiffness. Skin: Negative for color change, pallor and wound. Neurological: Negative for dizziness, tremors, seizures, syncope, facial asymmetry, speech difficulty, weakness and light-headedness. Hematological: Negative for adenopathy. Does not bruise/bleed easily. Psychiatric/Behavioral: Negative for agitation, behavioral problems, confusion, sleep distu rbance and suicidal ideas. Objective: Physical Exam Constitutional: He is oriented to person, place, and time. Vital signs are normal. He appea rs well-developed and well-nourished. HENT: Head: Normocephalic and atraumatic. Eyes: Conjunctivae and lids are normal. Neck: Trachea normal and normal range of motion. Neck supple. No JVD present. Cardiovascular: Normal rate and regular rhythm. Murmur (RAJI) heard. Pulmonary/Chest: Effort normal and breath sounds normal. Abdomina/Gl: Soft. Musculoskeletal: He exhibits edema. Neurological: He is alert and oriented to person, place, and time. No cranial nerve deficit . Skin: Skin is warm. No cyanosis. RISK SCORES About the STS Risk Calculator Procedure: AV Replacement Risk of Mortality: 4.284% Morbidity or Mortality: 24.534% Long Length of Stay: 11.805% Short Length of Stay: 27.092% Permanent Stroke: 1.44% Prolonged Ventilation: 15.834% DSW Infection: 0.366% Renal Failure: 7.771% Reoperation: 10.016% Assessment and Plan: 77 Y/O with symptomatic severe aortic stenosis. The patient is at moderate risk for SAVR pe r STS risk score with mortality risk of 4.2%. Cardiac angiography per Dr. Chris. Referral f or TAVR. The patient wants to go to [place] for TAVR. in this encounter Plan of Treatment Not on fileas of this encounter Visit Diagnoses + + | Diagnosis | + + | Nonrheumatic aortic valve stenosis - Primary | + + | Aortic valve disorders | + +
--- OUTSIDE RECORDS SUMMARY | ~2017-11-11 | XMS | Encounter Summary ---
Demographics + + + | Address | [address] | | | [place] [address] | + + + | Home Phone | | + + + | Preferred Language | Unknown | + + + | Marital Status | | + + + | Mu-Ism Affiliation | 1041 | + + + | Race | Unknown | + + + | Ethnic Group | Unknown | + + + Author + + + | Author | [facility] [employer] | + + + | Organization | [facility] [employer] | + + + | Address | Unknown | + + + | Phone | Unavailable | + + + Support + + + + + | Name | Relationship | Address | Phone | + + + + + | Marci Osborn | [place] | [address] | | | | | [place] | | | | | [address] | | + + + + + Care Team Providers + +------+ + | Care Concrete Products Dispatcher Name | Role | Phone | + +------+ + | Breezy Matias MD | PCP | | + +------+ + Reason for Referral Consultation (Routine) + + + + + + + | Status | Reason | Specialty | Diagnoses / | Referred By | Referred To | | | | | Procedures | Contact | Contact | + + + + + + + | Authorized | Specialty | Urology | Diagnoses | Valentin, | [facility] | | | Services | | Testicular | MD Nathaniel | [address] | | | Required | | pain, left | [address] | | | | | | [address] | [place], [place] | | | | | | Drive | [address] | | | | | | [place], [place] | Phone: | | | | | | [address] | [phone] | | | | | | Phone: | Fax: | | | | | | [phone] | [phone] | | | | | | Fax: | | | | | | | [phone] | | + + + + + + + Reason for Visit + + + | Reason | Comments | + + + | Back Pain | | + + + Consult and Treat (Routine) + +--------+ + + + + | Status | Reason | Specialty | Diagnoses / | Referred By | Referred To | | | | | Procedures | Contact | Contact | + +--------+ + + + + | Authorized | | Neurosurgery | Diagnoses | Qudheeraj | Rohan Arellano | | | | | Low back | MD Breezy | Neurosurgery | | | | | pain | [address] | [address] | | | | | | [address] | [address] | | | | | | [place] | [address] | | | | | | [place], | [place] | | | | | | [place] [address] | [address] | | | | | | Phone: | Phone: | | | | | | [phone] | [phone] | | | | | | Fax: | Fax: | | | | | | [phone] | [phone] | + +--------+ + + + + Encounter Details +--------+---------+ + + + | Date | Type | Department | Care Team | Description | +--------+---------+ + + + | 08/13/ | Office | [facility] | Nathaniel Hanson MD | Testicular pain, | | 2018 | Visit | Neuro[facility] | [address] | left (Primary Dx); | | | | [address] | Drive [place], [place] | Spinal stenosis of | | | | [place] | [address] | lumbar region with | | | | [address] | | neurogenic | | | | [phone] | | claudication | +--------+---------+ + + + Social History [...] + + + | Blood Pressure | 174/73 | 08/13/2017 2:24 PM PST | + + + + | Pulse | 61 | 08/13/2017 2:24 PM PST | + + + + | Temperature | - | - | + + + + | Respiratory Rate | - | - | + + + + | Oxygen Saturation | - | - | + + + + | Inhaled Oxygen | - | - | | Concentration | | | + + + + | Weight | 77.1 kg (170 lb) | 08/13/2017 2:24 PM PST | + + + + | Height | 167.6 cm (5' 6") | 08/13/2017 2:24 PM PST | + + + + | Body Mass Index | 27.44 | 08/13/2017 2:24 PM PST | + + + + in this encounter Progress Notes Nathaniel Hanson MD - 08/13/2017 2:45 PM PSTSubjective: This is a followup visit for this patient who has undergone a previous lumbar laminectomy L 4-5 in 2016 for spinal stenosis. He tells me that he has had resolution of the sciatica genevieve n he was having following the surgery. He has been having different symptoms that include l eft testicular pain. He explains that the testicular pain seems to bother him when he eats certain foods and so he has been losing weight because he is avoiding eating. He says he ca n walk OK without much trouble. He did develop some type of skin reaction along his left an terior thigh and buttocks. He was told at one point it was shingles and he was treated for that and even had a skin biopsy. He does have some lower back pain at times. His left test icular pain is episodic but quite severe he says when he has it. He says he has to have abhijit ething done about it. Objective: Strength B LE 5/5. Walking independently. Shows me the residual lesions on his left leg/hip/buttock which look like they are mostly r esolved. Reflexes 1+ knees, trace ankles. Imaging: MRI Lumbar spine reviewed. Multilevel DDD and spondylosis, S/P L4-5 laminectomy with some lateral recess narrowing/fac et arthropathy R>L, moderate stenosis L3-4, facet arthropathy and left L5-S1 narrowing Assessment/Plan: 77 year old man with history of severe L4-5 stenosis, s/p L4-5 laminectomy in the past. I did review the new MRI study and do not believe there is any good explanation for his left t esticular pain on this study. He does not have classic radicular pain or claudication sympt oms in my opinion that would benefit at this time from any spine procedure. I think he shou ld probably see a urologist to rule out primary testicular problems. A post-herpetic neural bryson would also be possible as an etiology and we discussed Elavil but he does not want to ta ke it. Referrals: To Urology Medications: None Followup: PRN here CC: BREEZY MATIAS Note: We spent approximately 25 minutes in ztob-yl-pyze time of which greater than 50% was involved in counseling/coordination of care. in this encounter Plan of Treatment + +--------+ + + | Name | Priori | Associated Diagnoses | Order Schedule | | | ty | | | + +--------+ + + | Ambulatory referral to Urology | Routin | Testicular pain, | Ordered: 08/16/2017 | | | e | left | | + +--------+ + + as of this encounter Visit Diagnoses + + | Diagnosis | + + | Testicular pain, left - Primary | + + | Unspecified disorder of male genital organs | + + | Spinal stenosis of lumbar region with neurogenic claudication | + + | Spinal stenosis, lumbar region, with neurogenic claudication | + +
--- OUTSIDE RECORDS SUMMARY | ~2017-11-11 | XMS | Encounter Summary ---
Demographics + + + | Address | [address] | | | [place] [address] | + + + | Home Phone | | + + + | Preferred Language | Unknown | + + + | Marital Status | | + + + | Yarsanism Affiliation | 1041 | + + + | Race | Unknown | + + + | Ethnic Group | Unknown | + + + Author + + + | Author | [facility] | | | and [place] | + + + | Organization | [facility] | | | and [...] Team Providers + +------+ + | Care Pole Setter Name | Role | Phone | + [...] | | | Rehabilitatio | (degenerativ | [address] | [address] | | | | n | e disc | [address] | | | | | disease), | WAY | [place], [place] | | | | | lumbar Low | [place], | [address] Phone: | | | | | back pain | [place] [address] | [phone] | | | | | Lumbar | Phone: | Fax: | | | | | radiculopath | [phone] | [phone] | | | | | y | Fax: | | | | | | Procedures | [phone] | | | | | | DOS 09/28/17 | | | +--------+--------+ + + + + Encounter Details +--------+---------+ + + + | Date | Type | Department | Care Team | Description | +--------+---------+ + + + | 09/28/ | Office | [facility] | Scarletdanoemilycz, | Left lumbar | | 2017 | Visit | PHYSIATRY [address] | [address]RA [address] | radiculopathy; | | | | [place], | [address] [place] | Foraminal stenosis | | | | [place] [address] | [place] [address] | of lumbar region; | | | | [phone] | [phone] | DDD (degenerative | | | | [...] of blood sugars if you are diabetic. intermediate risk can lead to osteoporosis which is [...] of the procedure you must provide a tower truck driver to take you home. For all procedur es it is recommended that someone else drive you home. in this encounter Progress Notes Katalina Leal PA-C - 09/28/2017 1400 PSTFormatting of this note may be different fro m the original. Katalina Leal PA-C [address], [address] [place] [address] FAX: PHYSICAL MEDICINE AND REHABILITATION H&P CHIEF [...] pain Lytic lesion of bone on x-ray [place] (myocardial infarction) 2007 Mixed hyperlipidemia MRSA (methicillin [...] LAMINECTOMY Surgeon: Nathaniel Hanson MD done at [facility] Main OR SKIN TAG REMOVAL [...] has no apparent deficits with short or alf memory. He has appropriate fund of knowledge [...] [place] | | | | | | [id number] | | | | | | | | | | | | [place] | | | | | | [address] | | | | | | [address] | | | | | | [place] | | | | | | [address] | | | | | | | [...]
--- OUTSIDE RECORDS SUMMARY | ~2017-11-11 | XMS | Encounter Summary ---
Demographics + + + | Address | [address] | | | [place] [address] | + + + | Home Phone | | + + + | Preferred Language | Unknown | + + + | Marital Status | | + + + | Hinduism Affiliation | 1041 | + + + | Race | Unknown | + + + | Ethnic Group | Unknown | + + + Author + + + | Author | [facility] | | | and [place] | + + + | Organization | [facility] | | | and [...] Providers + +------+ + | Care Public Relations Studies Director Name | Role | Phone | + [...] | | | | | [address] | | | | | | [place] | | | | | | [address] | | | | | | [phone] | | | +--------+ + + + [...] | Visit | | [address] | | | | | | [address] [place] | | | | | | [address] | | | | | | | | | | | | Zackery Wei | | | | | | Clif, PA-C [address] | | | | | | [address] | | | | | | [place] | | | | | | [address] | | | | | | | | +--------+---------+ + + + as of this encounter Visit Diagnoses Not on filein this encounter"
--- OUTSIDE RECORDS SUMMARY | ~2017-11-11 | XMS | Encounter Summary ---
Demographics + + + | Address | [address] | | | [place] [address] | + + + | Home Phone | | + + + | Preferred Language | Unknown | + + + | Marital Status | | + + + | Amish Affiliation | 1041 | + + + | Race | Unknown | + + + | Ethnic Group | Unknown | + + + Author + + + | Author | [facility] | + + + | Organization | [facility] | + + + | Address | Unknown | + + + | Phone | Unavailable | + + + Support + + + + + | Name | Relationship | Address | Phone | + + + + + | Marci Osborn | [place] | [address] | | | | | [place] | | | | | [address] | | + + + + + Care Team Providers + +------+ + | Care Launch Operator Name | Role | Phone | + +------+ + | Breezy Matias MD | PCP | | + +------+ + Encounter Details +--------+ + + + + | Date | Type | Department | Care Team | Description | +--------+ + + + + | 11/10/ | Initial | [facility] | Myles Canchola MD | Nonrheumatic aortic | | 2018 | consult | Cardiothoracic | [address] | valve stenosis | | | | Surgery [address] | [place] [address] | (Primary Dx) | | | | [address] | [phone] | | | | | [place] | | | | | | [address] | | | | | | [phone] | | | +--------+ + + + [...] TAVR. The patient wants to go to [place] for TAVR. in this encounter Plan of Treatment Not on fileas of this encounter Visit Diagnoses + + | Diagnosis | + + | Nonrheumatic aortic valve stenosis - Primary | + + | Aortic valve disorders | + +
--- OUTSIDE RECORDS SUMMARY | ~2017-11-11 | XMS | Encounter Summary ---
Demographics + + + | Address | [address] | | | [place] [address] | + + + | Home Phone | | + + + | Preferred Language | Unknown | + + + | Marital Status | | + + + | Synagogue Affiliation | 1041 | + + + | Race | Unknown | + + + | Ethnic Group | Unknown | + + + Author + + + | Author | [facility] | + + + | Organization | [facility] | + + + | Address | Unknown | + + + | Phone | Unavailable | + + + Support + + + + + | Name | Relationship | Address | Phone | + + + + + | Marci Osborn | [place] | [address] | | | | | [place] | | | | | [address] | | + + + + + Care Team Providers + +------+ + | Care Sonar Subsystem Equipment Operator Name | Role | Phone | [...] | | | | | [address] | [place], [place] | | | | | | Drive | [address] | | | | | | [place], [place] | Phone: | | | | | | [address] | [phone] | | | | | | Phone: | Fax: | | | | | | [phone] | [phone] | | | | | | Fax: | | | | | | | [phone] | | + + + + + [...] | | | | | pain | [address] | [address] | | | | | | [address] | [address] | | | | | | [place] | [address] | | | | | | [place], | [place] | | | | | | [place] [address] | [address] | | | | | | Phone: | Phone: | | | | | | [phone] | [phone] | | | | | | Fax: | Fax: | | | | | | [phone] | [phone] | + +--------+ + + + + Encounter Details +--------+---------+ + + + | Date | Type | Department | Care Team | Description | +--------+---------+ + + + | 08/13/ | Office | [facility] | Nathaniel Hanson MD | Testicular pain, | | 2018 | Visit | Neuroscience Center | [address] | left (Primary Dx); | | | | [address] | Drive [place], [place] | 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
--- OUTSIDE RECORDS SUMMARY | ~2017-11-11 | XMS | Encounter Summary ---
Demographics + + + | Address | [address] | | | [place] [address] | + + + | Home Phone | | + + + | Preferred Language | Unknown | + + + | Marital Status | | + + + | Yazidism Affiliation | 1041 | + + + | Race | Unknown | + + + | Ethnic Group | Unknown | + + + Author + + + | Author | [facility] | + + + | Organization | [facility] | + + + | Address | Unknown | + + + | Phone | Unavailable | + + + Support + + + + + | Name | Relationship | Address | Phone | + + + + + | Marci Wu | [place] | [address] | | | | | [place] | | | | | [address] | | + + + + + Care Team Providers + +------+ + | Care Gold Frame Assembler Name | Role | Phone | + [...] | | | valve | MD [address] | | | | | | stenosis, | [place] | | | | | | etiology of | DRIVE | | | | | | cardiac | [place] | | | | | | valve | [address] | | | | | | disease | Phone: | | | | | | unspecified | [phone] | | | | | | Procedures | Fax: | | | | | | Echo | [phone] | | | | | | cardiac [...] | | | valve | MD [address] | | | | | | stenosis, | [place] | | | | | | etiology of | DRIVE | | | | | | cardiac | [place] | | | | | | valve | [address] | | | | | | disease | Phone: | | | | | | unspecified | [phone] | | | | | | Procedures | Fax: | | | | | | Echo | [phone] | | | | | | cardiac [...] | | | | | valve | [address] | | | | | | disease | Phone: | | | | | | unspecified | [phone] | | | | | | Procedures | Fax: | | | | | | Echo | [phone] | | | | | | cardiac | | | | | | | adult | | | | | | | complete | | | + +--------+ + + + + Encounter Details +--------+ + + + + | Date | Type | Department | Care Team | Description | +--------+ + + + + | 10/27/ | Hospital | [facility] | Ravage, | Aortic valve | | 2018 | [facility] | [facility] | Arya Reyes MD | stenosis, etiology | | | | Echocardiography | [address] | of cardiac valve | | | | [address] | [place] [address] | disease unspecified | | | | [place] [address] | [phone] | | | | | [phone] | | | +--------+ + + + [...] | | RUSTAM [place] [address] [facility] [place] [address] | + + + + + | [...] LA/Ao: 1.05 D-E Excursion: 1.94 cm E-F Child[place]: 0.03 | | m/s TAPSE: 1.28 cm [...] Phil: | | 0.47 m/s TV Dec [place]: 2.23 m/s2 TV Dec Time: 286.00 ms TV E Phil: 0.63 | | m/s TV E/A Ratio: 1.33 Artificial Breeding Distributor: ANGELA Authenticated by: Arya Chris | | Report Date/Time: 10-28-2017 8:45:32 | + + + + | Procedure Note | + + | Kobi Cummings Results In - 10/28/2017 8:51 AM PDT Patient Name: Jose WU of | | : 1940Accession: [id number] Physician: Arya Chris | | ------REPORT | [...] (A-L): | | 41.67 ml/m2LAAs A2C: 21.98 [id number] A-L A2C: 74.32 mlLALs A2C: 5.51 cmLAAs A4C: | | 22.28 [id number] A-L A4C: 76.90 mlLALs A4C: 5.48 cmRAAd: 5.56 [id number] A-L: 7.54 | | mlRAEDV MOD: 7.87 mlRALd: 3.48 cmAo Diam: 3.64 cmAV Cusp: 0.86 cmLA Diam: 3.85 | | cmLA/Ao: 1.05 D-E Excursion: 1.94 cmE-F Child[place]: 0.03 m/sTAPSE: 1.28 cmIVC | | diameter: 2.19 cmIVC collapse: 1.04 cmIVC % collapse: 49.97 %HR: 46.93 BPMAV | | maxP.34 mmHgAV meanP.11 mmHgAV Vmax: 4.19 m/Frank Vmean: 3.01 m/Frank VTI: | | 106.80 cmAVA Vmax: 1.06 cm2AVA (VTI): 1.11 co9SJTB Vmax: 0.00 cm2/m2AVAI (VTI): | | 0.00 cm2/m2LVCI Dopp: 3.41 l/hcfo8BAZD Dopp: 6.22 l/minHR: 52.38 BPMLVOT maxPG: | [...] | m/sTV A Phil: 0.47 m/sTV Dec Childress: 2.23 m/s2TV Dec Time: 286.00 msTV E Phil: | | 0.63 m/sTV E/A Ratio: 1.33 Artificial Breeding Distributor: Mundoticated by: Arya Chris | | MDReport [...] | |D-E Excursion: 1.94 cm | |E-F Childress: 0.03 m/s | |TAPSE: 1.28 cm | [...] A Phil: 0.47 m/s | |TV Dec Childress: 2.23 m/s2 | |TV Dec Time: 286.00 ms | |TV E Phil: 0.63 m/s | |TV E/A Ratio: 1.33 | | | |Artificial Breeding Distributor: ANGELA | |Authenticated by: Arya Chris MD [...]
--- OUTSIDE RECORDS SUMMARY | ~2017-11-11 | XMS | Encounter Summary ---
Demographics + + + | Address | [address] | | | [place] [address] | + + + | Home Phone | | + + + | Preferred Language | Unknown | + + + | Marital Status | | + + + | Oriental Orthodox Affiliation | 1041 | + + + | Race | Unknown | + + + | Ethnic Group | Unknown | + + + Author + + + | Author | [facility] | | | and [place] | + + + | Organization | [facility] | | | and [place] [...] Team Providers + +------+ + | Care Psychodramatist Name | Role | Phone | + +------+ + | Breezy Matias DO | PCP | | + +------+ + Reason for Visit + + + | Reason | Comments | + + + | Pre-op Exam | | + + + | Follow-up | BPH with LUTS | + + + Evaluate & Treat [...] | | | | | pain | [address] | | | | | | [address] | [address] | | | | | | WAY | [place], | | | | | | [place] | [place] [address] | | | | | | [place] [address] | Phone: | | | | | | Phone: | [phone] | | | | | | [phone] | Fax: | | | | | | Fax: | [phone] | | | | | | [phone] | | +--------+--------+ + + + + Encounter Details +--------+---------+ + + + | Date | Type | Department | Care Team | Description | +--------+---------+ + + + | 10/06/ | Office | [facility] | Raul Hills | Coronary artery | | 2017 | Visit | [address] | MD Dai [address] | disease involving | | | | [address] [place] | [address] | [place] coronary | | | | [place] [address] | [place] | artery of [place] | | | | [phone] | [address] | heart without angina | | | | | | pectoris (Primary | | | | | | Dx); Hypertension, | | | | | | unspecified type; | | | | | | Benign prostatic | | | | | | hyperplasia with | | | | | | weak urinary stream | +--------+---------+ + + + Social History [...] 10/06/2017922 PDT | + + + + in this encounter Instructions Patient Instructions - Ruth Ann Plummer RN - 10/06/2017 0945 PDTPreoperative Instruction s Your surgery with Dr. Hills has been scheduled for October 15, 2017 at 12:15 PM at [facility]. Please report to [facility] no later than 10:45 AM. REMEMBER: NOTHING TO EAT OR DRINK AFTER MIDNIGHT October 14, 2017. Take all of your usual medications w ith a sip of water EXCEPT FISH OIL AND DIABETIC MEDICATION. You will need someone to drive you home after surgery. STOP ASPIRIN AND FISH OIL ONE WEEK PRIOR TO SURGERY. NO ASPIRIN OR ASPIRIN PRODUCTS or NSAIDS ONE WEEK PRIOR TO SURGERY. Tylenol (acetaminophen ) is OK. PRE ADMISSIONS CLINIC APPOINTMENT TODAY AT 10:30AM. Call us at [phone] with any questions. [x] Pain management booklet provided to patient. in this encounter Progress Notes Raul Hills MD - 10/06/2017 0945 PDTFormatting of this note may be different fr om the original. Chief Complaint Patient presents with Pre-op Exam Follow-up BPH with LUTS HPI Calixto Osborn is a 77 y.o. male patient of Breezy Matias, DO here today for a follow u p for BPH with LUTS and Pre-Op Exam. Long history of LUTS such as weak stream, hesitancy frequency, urgency and nocturia. AUA s ymptoms score was 34 Has not tried any medications but does not want to try any either. No gross hematuria, no dysuria, no fever chills. Recent Cysto showed significant trilobar hyperplasia as well as 3-4+ bladder trabeculations . Assessment Calixto was seen today for pre-op exam and follow-up. Diagnoses and all orders for this visit: Coronary artery disease involving [place] coronary artery of [place] heart without angina pec toris - ECG 12 lead; Future Hypertension, unspecified type - ECG 12 lead; Future Benign prostatic hyperplasia with weak urinary stream Plan Plan to perform TURP October 29. Patient will require preoperative evaluation given significa nt cardiac history. We'll order EKG as well as CBC and BMP. Patient will hold aspirin 1 week prior to the procedure and will not take his diabetic medi cations the morning of the procedure. Discussed again in detail how TURP is performed as well as a possible side effects and comp lications these include urinary incontinence, erectile dysfunction, retrograde ejaculation, urethral stricture, injury to the bladder the ureteral orifices and need for further proced ure. Past Medical History Past Medical History: Diagnosis Date Abdominal pain Actinic keratoses Aortic stenosis, severe Cataracts, bilateral Cerebrovascular accident (CVA) (HCC) Chews tobacco Cholecystitis Constipation Coronary artery disease Cutaneous eruption Cutaneous eruption DDD (degenerative disc disease), lumbar 09/28/2017 Degeneration of lumbar intervertebral disc Depression Diabetes type 2, controlled ([facility]) Diplopia Foot pain, left Foraminal stenosis of lumbar region 09/28/2017 Gout Hemangioma Thoracic History of lumbar laminectomy - L4/L5 09/28/2017 Hypertension Hypothyroidism Ischemic heart disease Left lumbar radiculopathy 09/28/2017 Low back pain Lytic lesion of bone on x-ray [place] (myocardial infarction) 2007 Mixed hyperlipidemia MRSA (methicillin resistant staph aureus) culture positive Osteoarthritis of left knee Peptic ulcer Peripheral vascular disease (HCC) Persistent testicular pain Left Radiculopathy of lumbar region Seborrheic keratosis Spondylolysis Superficial bruising of lower leg Thrombophlebitis Vasculitis of skin Past Surgical History Past Surgical History: Procedure Laterality Date APPENDECTOMY CARDIAC CATHERIZATION CORONARY ANGIOPLASTY WITH STENT PLACEMENT LITHOTRIPSY LUMBAR LAMINECTOMY Surgeon: Nathaniel Hanson MD done at [facility] Main OR SKIN TAG REMOVAL Left 05/26/2017 Lateral Thigh TONSILLECTOMY Family History: Family History Problem Relation Age of Onset High cholesterol Mother Diabetes Mother Heart attack Father Arthritis Father Diabetes Father Prostate cancer Neg Hx Social History: Social History Social History Marital status: Spouse name: Marci Number of children: 4 Years of education: 8 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 Social History Main Topics Smoking status: Former Smoker Packs/day: 2.00 Quit date: 09/28/1977 Smokeless tobacco: Former User Types: Chew Alcohol use Yes Comment: rare Drug use: No Sexual activity: No Other Topics Concern None Social History Narrative [...] mg by mouth Daily., Disp: , Rfl: docusate sodium (COLACE) 100 mg capsule, Take 100 mg by mouth Daily., Disp: , Rfl: fish oil 1,000 mg capsule, Take 2,000 mg by mouth 2 times daily., Disp: , Rfl: folic acid 1 mg tablet, Take 1 mg by mouth Daily., Disp: , Rfl: gabapentin (NEURONTIN) 300 mg capsule, 1 tab PO nightly x 5 days, then increase to 1 t ab PO BID x 5 days. If continue to tolerate well, increase to 1 tab PO TID., Disp: 120 caps ule, Rfl: 2 glipiZIDE (GLUCOTROL XL) 2.5 mg 24 hr tablet, Take 5 mg by mouth Daily., Disp: , Rfl: hydroCHLOROthiazide 25 mg tablet, Take 25 mg by mouth Daily., Disp: , Rfl: HYDROcodone-acetaminophen (NORCO) 10-325 mg per tablet, Take 1 tablet by mouth EVERY 4 TO 6 HOURS NEEDED., Disp: , Rfl: 0 levothyroxine (SYNTHROID) 100 mcg tablet, Take 100 [...] GI: No nausea no vomiting Objective BP 130/62 | Pulse 64 | Resp 16 | Ht 1.702 m (5' 7") | Wt 70.4 kg (155 lb 3.3 oz) | BMI 24.31 kg/m General Appearance: Alert, cooperative, no distress, appears stated age Head: Normocephalic, without obvious abnormality, atraumatic Eyes: PERRL, conjunctiva/corneas clear, EOM's intact Lungs: Regular, unlabored breathing MS patient reports pain with very light pressure on the skin. No gross deformity seen. N o spinal tenderness Normal external genitalia, no erythema, edema or rash Abdomen: Soft, non-tender, no masses Extremities: Extremities normal, atraumatic, no cyanosis, clubbing, or edema Neurologic: Gait normal, CN 2-12 grossly intact; [...] POC Trace (A) Negative, 100 mg/dL Specific [place], UA, POC 1.020 1.001 - 1.030 Blood, [...] DO's notes were reviewed in clinic today. No Follow-up on file.. CC: Breezy Matias DO in this encounter Plan of Treatment +--------+---------+ + + + | Date | Type | Specialty | Care Team | Description | +--------+---------+ + + + | 02/09/ | Office | Neurosurgery | Heriberto Choudhury MD | | | 2017 | Visit | | [address] [place] | | | | | | [address] [place] | | | | | | [address] | | | | | | | | | | | | Zackery Wei | | | | | | [address] [address] | | | | | | [address] | | | | | | [place], [place] | | | | | | [address] | | | | | | | | +--------+---------+ + + + as of this encounter Results ECG 12 lead (10/06/2017 1034) + + [...] VIRGINIA GRADY MD | | | | ([id number]) on 10/07/2017 7:33:35 AM | | | |Confirmed by VIRGINIA GRADY MD ([id number]) on 10/07/2017 7:33:35 AM | | | | | | + + +------ -----+ + + + | Specimen | Performing Laboratory | + + + | | [facility] | + + + in this encounter Visit Diagnoses + + | Diagnosis | + + | Coronary artery disease involving [place] coronary artery of [place] heart without angina | | pectoris - Primary | + + | Hypertension, unspecified type | + + | Benign prostatic hyperplasia with weak urinary stream | + +
--- OUTSIDE RECORDS SUMMARY | ~2017-11-11 | XMS | Encounter Summary ---
Demographics + + + | Address | [address] | | | [place] [address] | + + + | Home Phone | | + + + | Preferred Language | Unknown | + + + | Marital Status | | + + + | Jainism Affiliation | 1041 | + + + | Race | Unknown | + + + | Ethnic Group | Unknown | + + + Author + + + | Author | [facility] | | | and [place] | + + + | Organization | [facility] | | | and [place] | + [...] Team Providers + +------+ + | Care Power Generation Turbine Room Operator Name | Role | Phone | [...] | | | | CLINIC [address] | [address] | (Primary Dx); | | | | [place], [place] | [place], [place] | Coronary artery | | | | [address] | [address] | disease involving | | | | [phone] | | [place] coronary | | | | | | artery of [place] | | | | | | heart [...] | | | | [address] [place], [place] | | | | | | [address] | | | | | | | | | | | | Zackery Wei | | | | | | T[place] [address] | | | | | | [address] | | | | | | [place], [place] | | | | | | [address] | | | | | | | [...] | + + + | Blood | [facility] Tanna Allen | | | [place] [address] | + + + Basic Metabolic Panel [...] GLOMERULAR FILTRATION | >=60 mL/min/1.73m2 | | EMIRATI | RATE,ESTIMATED mL/min/1.09x0Tjbf than | | | | 60 Chronic [...] + + + | Blood | [facility] Tanna Allen | | | [place] [address] | + + + ECG 12 lead [...] VIRGINIA GRADY MD | | | | ([id number]) on 10/07/2017 7:33:35 AM | | | |Confirmed by VIRGINIA GRADY MD ([id number]) on 10/07/2017 7:33:35 AM | | | | | | + + +------ -----+ + + + | Specimen | Performing Laboratory | + + + | | [facility] | + + + in this encounter Visit Diagnoses + + | Diagnosis | + + | Hypertension, unspecified type - Primary | + + | Coronary artery disease involving [place] coronary artery of [place] heart without angina | | pectoris | + +"
--- OUTSIDE RECORDS SUMMARY | ~2017-11-11 | XMS | Encounter Summary ---
Demographics + + + | Address | [address] | | | [place] [address] | + + + | Home Phone | | + + + | Preferred Language | Unknown | + + + | Marital Status | | + + + | Protestant Affiliation | 1041 | + + + | Race | Unknown | + + + | Ethnic Group | Unknown | + + + Author + + + | Author | [facility] | | | and [place] | + + + | Organization | [facility] | | | and [place] [...] Providers + +------+ + | Care Supervisor Inspection Department Name | Role | Phone | + [...] | Lumbar | [place], | [address] | | | | | radiculopath | Quentin Huang MD | [place], | | | | | y | [address] | [place] | | | | | Procedures | [place] | [address] | | | | | PA INJECT | [place], [place] | Phone: | | | | | ANES/STEROID | [address] | [phone] | | | | | FORAMEN | Phone: | Fax: | | | | | LUMBAR/SACRA | [phone] | [phone] | | | | | L [address] IMG | Fax: | | | | | | GUIDE ,1 | [phone] | | | | | | LEVEL PA | | | | | | | [...] | | | | | | | PA | | | | | | | [...] + + | 09/29/ | Hospital | [facility] | Bogdanowicz, | Left lumbar | | 2018 | Encounter | [facility] XRAY [address] | [address] | radiculopathy; | | | | [address] [place] | [address] [place] | Foraminal stenosis | | | | [place] [address] | [place] [address] | of lumbar region; | | | | [phone] | [phone] | DDD (degenerative | | | | | | disc disease), | | | | | [place], [place] | lumbar; History of | | [...] | [address] | | | | | | [address] [place] | | | | | | [address] [...]
--- OUTSIDE RECORDS SUMMARY | ~2017-11-11 | XMS | Clinical Summary ---
Demographics + + + | Address | [address] | | | [place] [address] | + + + | Home Phone | | + + + | Preferred Language | Unknown | + + + | Marital Status | | + + + | Sabianism Affiliation | 1041 | + + + | Race | Unknown | + + + | Ethnic Group | Unknown | + + + Author + + + | Author | [facility] | + + + | Organization | [facility] | + + + | Address | Unknown | + + + | Phone | Unavailable | + + + Support + + + + + | Name | Relationship | Address | Phone | + + + + + | Marci Wu | [place] | [address] | | | | | [place] | | | | | [address] | | + + + + + Care Team Providers + +------+ + | Care School Janitor Name | Role | Phone | + [...] + + | Coronary artery disease involving [place] coronary artery without | 02/01/2015 | | [...] | Hypertension | | + +---+ | [place] (myocardial infarction) | | + +---+ Encounters [...] Laboratory | + + + | | [address] [address] | + + + + + | [...] Narrative | + + | Patient Name: USZIE WU Date of : 1940 | | [...] LA/Ao: 1.05 D-E Excursion: 1.94 cm E-F [place]: 0.03 | | m/s TAPSE: 1.28 cm [...] Phil: | | 0.47 m/s TV Dec [place]: 2.23 m/s2 TV Dec Time: 286.00 ms TV E Phil: 0.63 | | m/s TV E/A Ratio: 1.33 Flexible Shaft Winder: ANGELA Authenticated by: Arya Chris | | Report Date/Time: 10-28-2017 8:45:32 | + + + + | Procedure Note | + + | Kobi Cummings In - 10/28/2017 8:51 AM PDT Patient Name: Jose WU of | | : 1940Accession: [id number] Physician: Arya Chris | | ------REPORT | [...] (A-L): | | 41.67 ml/m2LAAs A2C: 21.98 iu2CONKG A-L A2C: 74.32 mlLALs A2C: 5.51 cmLAAs A4C: | | 22.28 hh6XQMAO A-L A4C: 76.90 mlLALs A4C: 5.48 cmRAAd: 5.56 vz6WHMMI A-L: 7.54 | | mlRAEDV MOD: 7.87 mlRALd: 3.48 cmAo Diam: 3.64 cmAV Cusp: 0.86 cmLA Diam: 3.85 | | cmLA/Ao: 1.05 D-E Excursion: 1.94 cmE-F [place]: 0.03 m/sTAPSE: 1.28 cmIVC | | diameter: 2.19 cmIVC collapse: 1.04 cmIVC % collapse: 49.97 %HR: 46.93 BPMAV | | maxP.34 mmHgAV meanP.11 mmHgAV Vmax: 4.19 m/Frank Vmean: 3.01 m/Frank VTI: | | 106.80 cmAVA Vmax: 1.06 cm2AVA (VTI): 1.11 ox4EYJN Vmax: 0.00 cm2/m2AVAI (VTI): | | 0.00 cm2/m2LVCI Dopp: 3.41 l/ayvs7NPCT Dopp: 6.22 l/minHR: 52.38 BPMLVOT maxPG: | [...] | m/sTV A Phil: 0.47 m/sTV Dec [place]: 2.23 m/s2TV Dec Time: 286.00 msTV E Phil: | | 0.63 m/sTV E/A Ratio: 1.33 Flexible Shaft Winder: MIKAuthenticated by: Arya Chris | | MDReport [...] | |D-E Excursion: 1.94 cm | |E-F [place]: 0.03 m/s | |TAPSE: 1.28 cm | [...] A Phil: 0.47 m/s | |TV Dec [place]: 2.23 m/s2 | |TV Dec Time: 286.00 ms | |TV E Phil: 0.63 m/s | |TV E/A Ratio: 1.33 | | | |Flexible Shaft Winder: ANGELA | |Authenticated by: Arya Chris MD [...] | xxxxxxxxxx | | | [address] | | | RE | | | | [place] [address] | | | IP-OP | | | | | + +--------+ +------+-------+ + | [facility] | YELLOW | [id number] | | [...] | Self | [birth year] Home: | [address] | | | al/Fam | | 1940 | [phone] [place] [address] | | | laxmi | | | 0966 | | + +--------+ +--------+ + +
--- OUTSIDE RECORDS SUMMARY | ~2017-11-11 | XMS | Encounter Summary ---
Demographics + + + | Address | [address] | | | [place] [address] | + + + | Home Phone | | + + + | Preferred Language | Unknown | + + + | Marital Status | | + + + | Muslim Affiliation | 1041 | + + + | Race | Unknown | + + + | Ethnic Group | Unknown | + + + Author + + + | Author | [facility] | | | and [place] | + + + | Organization | [facility] | | | and [place] [...] Team Providers + +------+ + | Care Manager Technical Services Name | Role | Phone | + [...] [address] | | | | | [place], | [address] [place] | | | | | [place] [address] | [place] [address] | | | | | [phone] | [phone] | | | | | | | [...] 2018 | Visit | | [address] [facility] | | | | | | [address] [place] | | | | | | [id number] | | | | | | | | | | | | Zackery Wei | | | | | | TYRA Menezes [address] | | | | | | [address] | | | | | | [place] | | | | | | [address] | | | | | | | | +--------+---------+ + + + as of this encounter Visit Diagnoses Not on filein this encounter"
--- OUTSIDE RECORDS SUMMARY | ~2017-11-11 | XMS | Encounter Summary ---
Demographics + + + | Address | [address] | | | [place] [address] | + + + | Home Phone | | + + + | Preferred Language | Unknown | + + + | Marital Status | | + + + | Sabianist Affiliation | 1041 | + + + | Race | Unknown | + + + | Ethnic Group | Unknown | + + + Author + + + | Author | [facility] | | | and [place] | + + + | Organization | [facility] | [...] Team Providers + +------+ + | Care Salicylic Acid Blender Name | Role | Phone | + [...] | | | | | [place] [address] | | | | | | [phone] | | | +--------+ + + + [...] [place] | | | | | | [address] | | | | | | | | +--------+---------+ + + + as of this encounter Visit Diagnoses Not on filein this encounter"
--- OUTSIDE RECORDS SUMMARY | ~2017-11-11 | XMS | Encounter Summary ---
Demographics + + + | Address | [address] | | | [place] [address] | + + + | Home Phone | | + + + | Preferred Language | Unknown | + + + | Marital Status | | + + + | Temple Affiliation | 1041 | + + + | Race | Unknown | + + + | Ethnic Group | Unknown | + + + Author + + + | Author | [facility] | | | and [place] | + + + | Organization | [facility] | | | and [...] Team Providers + +------+ + | Care Stitch Burnisher Name | Role | Phone | + [...] | | | | | | [place] [address] | | | | | | [phone] | | | +--------+ + + + [...] [place] | | | | | | [address] | | | | | | | | +--------+---------+ + + + as of this encounter Visit Diagnoses Not on filein this encounter"
--- OUTSIDE RECORDS SUMMARY | ~2017-11-11 | XMS | Encounter Summary ---
Demographics + + + | Address | [address] | | | [place] [address] | + + + | Home Phone [...] + | Organization | [facility] | | | and [place] [...] Team Providers + +------+ + | Care Casing Blower Name | Role | Phone | + [...] | | | | CLINIC [address] | [address] | (Primary Dx); | | | | [place], [place] | [place] | Coronary artery | | | | [address] | [address] | disease involving | | | | [phone] | | [place] coronary | | | | | | artery of [place] | | | | | | heart [...] | | | | [address] [place], [place] | | | | | | [address] | | | | | | | | | | | | Zackery Wei | | | | | | TYRA Menezes [address] | | | | | | [address] | | | | | | [place], [place] | | | | | | [address] | | | | | | | [...] | + + + | Blood | [facility] Tanna Allen | | | [place] [address] | + + + Basic Metabolic Panel [...] GLOMERULAR FILTRATION | >=60 mL/min/1.73m2 | | BHUTANESE | RATE,ESTIMATED mL/min/1.78w3Dqqc than | | | | 60 Chronic [...] + + + | Blood | [facility] Tanna Allen | | | [place] [address] | + + + ECG 12 lead [...] VIRGINIA GRADY MD | | | | ([id number]) on 10/07/2017 7:33:35 AM | | | |Confirmed by VIRGINIA GRADY MD ([id number]) on 10/07/2017 7:33:35 AM | | | | | | + + +------ -----+ + + + | Specimen | Performing Laboratory | + + + | | [facility] | + + + in this encounter Visit Diagnoses + + | Diagnosis | + + | Hypertension, unspecified type - Primary | + + | 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
--- OUTSIDE RECORDS SUMMARY | ~2017-11-11 | XMS | Encounter Summary ---
Demographics + + + | Address | [address] | | | [place] [address] | + + + | Home Phone | | + + + | Preferred Language | Unknown | + + + | Marital Status | | + + + | Anabaptism Affiliation | 1041 | + + + | Race | Unknown | + + + | Ethnic Group | Unknown | + + + Author + + + | Author | [facility] | + + + | Organization | [facility] | + + + | Address | Unknown | + + + | Phone | Unavailable | + + + Support + + + + + | Name | Relationship | Address | Phone | + + + + + | Marci Osborn | [place] | [address] | | | | | [place] | | | | | [address] | | + + + + + Care Team Providers + +------+ + | Care Shipping Track Supervisor Name | Role | Phone | [...] | | | | [address] | [place] [address] | (Primary Dx) | | | | [place] | [phone] | | | | | [place] | | | | | | [address] | | | | | | [phone] | | | +--------+ + + + [...] TAVR. The patient wants to go to [place] for TAVR. in this encounter Plan of Treatment Not on fileas of this encounter Visit Diagnoses + + | Diagnosis | + + | Nonrheumatic aortic valve stenosis - Primary | + + | Aortic valve disorders | + +
--- OUTSIDE RECORDS SUMMARY | ~2017-11-11 | XMS | Encounter Summary ---
Demographics + + + | Address | [address] | | | [place] [address] | + + + | Home Phone | | + + + | Preferred Language | Unknown | + + + | Marital Status | | + + + | Adventism Affiliation | 1041 | + + + | Race | Unknown | + + + | Ethnic Group | Unknown | + + + Author + + + | Author | [facility] | | | and [place] | + + + | Organization | [facility] | | [...] Team Providers + +------+ + | Care Pocket Closer Name | Role | Phone | + [...] | | | | | pain | [address] | [address] | | | | | | [address] | [address] | | | | | | WAY | [place], | | | | | | [place] | [place] [address] | | | | | | [place] [address] | Phone: | | | | | | Phone: | [phone] | | | | | | [phone] | Fax: | | | | | | Fax: | [phone] | | | | | | [phone] | | +--------+--------+ + + + + Encounter Details +--------+---------+ + + + | Date | Type | Department | Care Team | Description | +--------+---------+ + + + | 10/06/ | Office | [facility] | [place] | Coronary artery | | 2017 | Visit | [address] | MD Dai [address] | disease involving | | | | [address] [place] | [address] | poarch coronary | | | | [place] [address] | [place] | artery of poarch | | | | [phone] | [address] | heart without angina | | | [...] October 15, 2017 at 12:15 PM at [facility]. Please report to [facility] no [...] APPOINTMENT TODAY AT 10:30AM. Call us at [phone] with any questions. 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 Gout Hemangioma Thoracic History of lumbar laminectomy - L4/L5 09/28/2017 Hypertension Hypothyroidism Ischemic heart disease Left lumbar radiculopathy 09/28/2017 Low back pain Lytic lesion of bone on x-ray [place] (myocardial infarction) 2007 Mixed hyperlipidemia MRSA (methicillin [...] LAMINECTOMY Surgeon: Nathaniel Hanson MD done at [facility] Main OR SKIN TAG REMOVAL Left 05/26/2017 Lateral Thigh TONSILLECTOMY Family History: Family History Problem Relation Age of Onset High cholesterol Mother Diabetes Mother Heart attack Father Arthritis Father Diabetes Father Prostate cancer Neg Hx Social History: Social History Social History Marital status: Spouse name: Marci Number of children: 4 Years of education: 8 Occupational History Restaurant Worker Social History Main Topics Smoking status: Former [...] POC Trace (A) Negative, 100 mg/dL Specific [place], UA, POC 1.020 1.001 - 1.030 Blood, [...] | | | | [address] [place] | | | | | | [address] | | | | | | | | | | | | Zackery Wei | | | | | | TYRA Menezes [address] | | | | | | [address] | | | | | | [place], [place] | | | | | | [address] | | | | | | | [...] VIRGINIA GRADY MD | | | | ([id number]) on 10/07/2017 7:33:35 AM | | | |Confirmed by VIRGINIA GRADY MD ([id number]) on 10/07/2017 7:33:35 AM | | | | | | + + +------ -----+ + + + | Specimen | Performing Laboratory | + + + | | [facility] | + + + in this encounter Visit Diagnoses + + | Diagnosis | + + | 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
--- OUTSIDE RECORDS SUMMARY | ~2017-11-11 | XMS | Encounter Summary ---
Demographics + + + | Address | [address] | | | [place] [address] | + + + | Home Phone | | + + + | Preferred Language | Unknown | + + + | Marital Status | | + + + | Rastafarian Affiliation | 1041 | + + + | Race | Unknown | + + + | Ethnic Group | Unknown | + + + Author + + + | Author | [facility] | | | and [place] | + + + | Organization | [facility] | | | and [place] [...] Team Providers + +------+ + | Care Oil And Gas Principal Name | Role | Phone | + [...] [place] | location, | | | | [place], [place] | [address] | unspecified back | | | | [address] | | pain laterality, | | | | [phone] | | unspecified | | | | [...] | | | | [address] [place] | | | | | | [address] | | | | | | | | | | | | Zackery Wei | | | | | | TYRA Menezes [address] | | | | | | [address] | | | | | | [place], [place] | | | | | | [address] | | | | | | | [...]
--- OUTSIDE RECORDS SUMMARY | ~2017-11-11 | XMS | Encounter Summary ---
Demographics + + + | Address | [address] | | | [place] [address] | + + + | Home Phone [...] + + + | Author | [facility] | | | and [place] | + + + | Organization | [facility] | | | and [place] [...] Team Providers + +------+ + | Care Spinning Mule Operator Name | Role | Phone | [...] | Lumbar | [place], | [address] | | | | | radiculopath | Quentin Huang MD | [place], | | | | | y | [address] | [place] | | | | | Procedures | [place] | [address] | | | | | MD INJECT | [place] | Phone: | | | | | ANES/STEROID | [address] | [phone] | | | | | FORAMEN | Phone: | Fax: | | | | | LUMBAR/SACRA | [phone] | [phone] | | | | | L W IMG | Fax: | | | | | | GUIDE ,1 | [phone] | | | | | | LEVEL MD | | | | | | | [...] | | | | | | | MD | | | | | | | [...] + + | 09/29/ | Hospital | [facility] | Bogdanowicz, | Left lumbar | | 2018 | Encounter | MED CTR XRAY [address] | [address] | radiculopathy; | | | | [place] | [address] [place] | Foraminal stenosis | | | | [place] [address] | [place] [address] | of lumbar region; | | | | [phone] | [phone] | DDD (degenerative | | | | | | disc disease), | | | | | Gambling Cashier, Ws | lumbar; History of | | [...] 2018 | Visit | | [address] | | | | | | [address] [place] | | | | | | [address] [...]
--- OUTSIDE RECORDS SUMMARY | ~2017-11-11 | XMS | Encounter Summary ---
Demographics + + + | Address | [address] | | | [place] [address] | + + + | Home Phone | | + + + | Preferred Language | Unknown | + + + | Marital Status | | + + + | Hindu Affiliation | 1041 | + + + | Race | Unknown | + + + | Ethnic Group | Unknown | + + + Author + + + | Author | [facility] | | | and [place] | + + + | Organization | [facility] | [...] Team Providers + +------+ + | Care Clay Roaster Name | Role | Phone | + [...] | | | | | | | [address] | | + +--------+ + + + [...] Deon LOVE | | | | | [phone] | [place] [address] | | +--------+ + + + + [...] for comparison only - no result from [place]. | + + in this encounter Visit Diagnoses Not on filein this encounter"
--- OUTSIDE RECORDS SUMMARY | ~2017-11-11 | XMS | Encounter Summary ---
Demographics + + + | Address | [address] | | | [place] [address] | + + + | Home Phone | | + + + | Preferred Language | Unknown | + + + | Marital Status | | + + + | Protestant Affiliation | 1041 | + + + | Race | Unknown | + + + | Ethnic Group | Unknown | + + + Author + + + | Author | [facility] | | | and [place] | + + + | Organization | [facility] | | [...] Providers + +------+ + | Care Casing Soaker Name | Role | Phone | + [...] | | | | | | | [address] | | + +--------+ + + + [...] Deon LOVE | | | | | [phone] | [place] [address] | | +--------+ + + + + [...] for comparison only - no result from [place]. | + + in this encounter Visit Diagnoses Not on filein this encounter"
--- OUTSIDE RECORDS SUMMARY | ~2017-11-11 | XMS | Encounter Summary ---
Demographics + + + | Address | [address] | | | [place] [address] | + + + | Home Phone | | + + + | Preferred Language | Unknown | + + + | Marital Status | | + + + | Episcopalian Affiliation | 1041 | + + + | Race | Unknown | + + + | Ethnic Group | Unknown | + + + Author + + + | Author | [facility] | | | and [place] | + + + | Organization | [facility] | | | and Cortes[place] [...] Team Providers + +------+ + | Care Linoleum Installer Name | Role | Phone | + [...] | | | | | | [place] [address] | | | | | | [phone] | | | +--------+ + + + [...] 2018 | Visit | | [address] [facility] | | | | | | [address] [place] | | | | | | [address] | | | | | | | | | | | | Zackery Wei | | | | | | TYRA Menezes [address] | | | | | | [address] | | | | | | [place] | | | | | | [address] | | | | | | | | +--------+---------+ + + + as of this encounter Visit Diagnoses Not on filein this encounter"
--- OUTSIDE RECORDS SUMMARY | ~2017-11-11 | XMS | Encounter Summary ---
Demographics + + + | Address | [address] | | | [place] [address] | + + + | Home Phone | | + + + | Preferred Language | Unknown | + + + | Marital Status | | + + + | Jainism Affiliation | 1041 | + + + | Race | Unknown | + + + | Ethnic Group | Unknown | + + + Author + + + | Author | [facility] | | | and [place] | + + + | Organization | [facility] | | | and [place] | [...] Team Providers + +------+ + | Care Custom Protection Officer Name | Role | Phone | + +------+ + | Breezy Matias DO | PCP | | + +------+ + Reason for Visit + + + | Reason | Comments | + + + | Surgery Appointment | | + + + Encounter Details +--------+ + + + + | Date | Type | Department | Care Team | Description | +--------+ + + + + | 10/08/ | Telephone | [facility] | [place] | Surgery Appointment | | 2018 | | [address] | MD Dai [address] | | | | | [address] [place] | [address] | | | | | [place] [address] | [place], [place] | | | | | [phone] | [address] | | | | | | | [...] [place] | | | | | | [id number] | | | | | | | | +--------+---------+ + + + as of this encounter Visit Diagnoses Not on filein this encounter"
--- OUTSIDE RECORDS SUMMARY | ~2017-11-11 | XMS | Encounter Summary ---
Demographics + + + | Address | [address] | | | [place] [address] | + + + | Home Phone | | + + + | Preferred Language | Unknown | + + + | Marital Status | | + + + | Shinto Affiliation | 1041 | + + + | Race | Unknown | + + + | Ethnic Group | Unknown | + + + Author + + + | Author | [facility] | + + + | Organization | [facility] | + + + | Address | Unknown | + + + | Phone | Unavailable | + + + Support + + + + + | Name | Relationship | Address | Phone | + + + + + | Marci Osborn | [place] | [address] | | | | | [place] | | | | | [address] | | + + + + + Care Team Providers + +------+ + | Care Primer And Powder Canning Leader Name | Role | Phone | + [...] | | | | | [address] | [place], [place] | | | | | | Drive | [address] | | | | | | [place], [place] | Phone: | | | | | | [address] | [phone] | | | | | | Phone: | Fax: | | | | | | [phone] | [phone] | | | | | | Fax: | | | | | | | [phone] | | + + + + + [...] | | | | | pain | [address] | [address] | | | | | | [address] | [address] | | | | | | [place] | [address] | | | | | | [place], | [place] | | | | | | [place] [address] | [address] | | | | | | Phone: | Phone: | | | | | | [phone] | [phone] | | | | | | Fax: | Fax: | | | | | | [phone] | [phone] | + +--------+ + + + + Encounter Details +--------+---------+ + + + | Date | Type | Department | Care Team | Description | +--------+---------+ + + + | 08/13/ | Office | [facility] | Nathaniel Hanson MD | Testicular pain, | | 2018 | Visit | [facility] | [address] | left (Primary Dx); | | | | [address] | Drive [place], [place] | 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
--- OUTSIDE RECORDS SUMMARY | ~2017-11-11 | XMS | Encounter Summary ---
Demographics + + + | Address | [address] | | | [place] [address] | + + + | Home Phone | | + + + | Preferred Language | Unknown | + + + | Marital Status | | + + + | Adventism Affiliation | 1041 | + + + | Race | Unknown | + + + | Ethnic Group | Unknown | + + + Author + + + | Author | [facility] | | | and [place] | + + + | Organization | [facility] | | | and Cortes[place] [...] Team Providers + +------+ + | Care Director Cloud Transformation Name | Role | Phone | + [...] [address] | | | | | [place], | [address] [place] | | | | | [place] [address] | [place] [address] | | | | | [phone] | [phone] | | | | | | | [...]
--- OUTSIDE RECORDS SUMMARY | ~2017-11-11 | XMS | Encounter Summary ---
Demographics + + + | Address | [address] | | | [place] [address] | + + + | Home Phone | | + + + | Preferred Language | Unknown | + + + | Marital Status | | + + + | Jain Affiliation | 1041 | + + + | Race | Unknown | + + + | Ethnic Group | Unknown | + + + Author + + + | Author | [facility] | | | and [place] | + + + | Organization | [facility] | | [...] Team Providers + +------+ + | Care Orchid Grower Name | Role | Phone | + [...] [address] | | | | | [place], | [address] [place] | | | | | [place] [address] | [place] [address] | | | | | [phone] | [phone] | | | | | | | [...]
--- OUTSIDE RECORDS SUMMARY | ~2017-11-11 | XMS | Clinical Summary ---
Demographics + + + | Address | [address] | | | [place] [address] | + + + | Home Phone | | + + + | Preferred Language | Unknown | + + + | Marital Status | | + + + | Adventism Affiliation | 1041 | + + + | Race | Unknown | + + + | Ethnic Group | Unknown | + + + Author + + + | Author | [facility] | | | and [place] | + + + | Organization | [facility] | | | and [place] [...] Team Providers + +------+ + | Care Waiter/Waitress Third Class Name | Role | Phone | + [...] | 09/02/2017 | + + + | MD (myocardial infarction) ([facility]) | 09/02/2017 | + + + | Moderate aortic stenosis | 03/15/2015 | + + + + + | Overview: Last Assessment & Plan: | | Will do periodic monitoring | | Continue Statin, ASA. | + + + + + | Coronary artery disease involving sk[place] coronary artery without | 02/01/2015 | | [...] involving | | | | | | [place] coronary | | | | | | artery of [place] | | | | | | heart without angina | | | | | | pectoris | +--------+ + + + + | 10/06/ | Office | | [place] | Coronary artery | | 2017 | Visit | | MD Dai | disease involving | | | | | | [place] coronary | | | | | | artery of [place] | | | | | | heart [...] | radiculopathy; | | | | | Principal PlannerBrennan | Foraminal stenosis | | | | [...] | Visit | | [address] [facility] | | | | | | [address] [place] [address] | | | | | | [address] | | | | | | | | | | | | Zackery Wei | | | | | | TYRA Menezes [address] | | | | | | [address] [facility] 50 | | | | | | [place] | | | | | | [address] | | | | | | | [...] | + + + | Blood | [facility] Tanna Allen | | | [place] [address] | + + + Basic Metabolic Panel [...] GLOMERULAR FILTRATION | >=60 mL/min/1.73m2 | | GABONESE | RATE,ESTIMATED mL/min/1.21s7Aqqe than | | | | 60 Chronic [...] + + + | Blood | [facility] Tanna ChurchViktoriya Rivasar | | | [address] [place] [address] | + + + ECG 12 lead [...] VIRGINIA GRADY MD | | | | ([id number]) on 10/07/2017 7:33:35 AM | | | |Confirmed by VIRGINIA GRADY MD ([id number]) on 10/07/2017 7:33:35 AM | | | [...] + | Urine - Urine, clean | [facility] Tanna Allen | | catch | [place] [address] | + + + POCT Urinalysis Dipstick [...] | + + + + | Specific [place], | 1.020 | 1.001 - 1.030 | [...] | | + +--------+ +--------+ +---------+ | [facility] | IHS | xxxxxx | Indemn [...] | Self | [birth year] Home: | [address] | | | al/Fam | | 1940 | [phone] | [place] [address] | | | laxmi | | | 8338 | | + +--------+ +--------+ + +
--- OUTSIDE RECORDS SUMMARY | ~2017-11-11 | XMS | Encounter Summary ---
Demographics + + + | Address | [address] | | | [place] [address] | + + + | Home Phone | | + + + | Preferred Language | Unknown | + + + | Marital Status | | + + + | Gnosticism Affiliation | 1041 | + + + | Race | Unknown | + + + | Ethnic Group | Unknown | + + + Author + + + | Author | [facility] | | | and [place] | + + + | Organization | [facility] | | | and [...] Team Providers + +------+ + | Care Personal Care Assistant Name | Role | Phone | [...] + + | 10/08/ | Telephone | [facility] | [place] | Surgery Appointment | | 2018 | | [address] | MD Dai [address] | | | | | [address] [place] | [address] | | | | | [place] [address] | [place], [place] | | | | | [phone] | [address] | | | | | | | [...] [place] | | | | | | [id number] | | | | | | | | +--------+---------+ + + + as of this encounter Visit Diagnoses Not on filein this encounter"
--- OUTSIDE RECORDS SUMMARY | ~2017-11-11 | XMS | Encounter Summary ---
Demographics + + + | Address | [address] | | | [place] [address] | + + + | Home Phone | | + + + | Preferred Language | Unknown | + + + | Marital Status | | + + + | Cheondoism Affiliation | 1041 | + + + | Race | Unknown | + + + | Ethnic Group | Unknown | + + + Author + + + | Author | [facility] | + + + | Organization | [facility] | + + + | Address | Unknown | + + + | Phone | Unavailable | + + + Support + + + + + | Name | Relationship | Address | Phone | + + + + + | Marci Wu | [place] | [address] | | | | | [place] | | | | | [address] | | + + + + + Care Team Providers + +------+ + | Care Blow Off Worker Name | Role | Phone | + [...] | | | valve | MD Amy [address] | | | | | | stenosis, | [place] | | | | | | etiology of | DRIVE | | | | | | cardiac | [place] | | | | | | valve | [address] | | | | | | disease | Phone: | | | | | | unspecified | [phone] | | | | | | Procedures | Fax: | | | | | | Echo | [phone] | | | | | | cardiac | | | | | | | adult | | | | | | | complete | | | + +--------+ + + + + Encounter Details +--------+ + + + + | Date | Type | Department | Care Team | Description | +--------+ + + + + | 10/27/ | Orders Only | [facility] | Aries | Aortic valve | | 2017 | | [facility] | Arya Reyes MD | stenosis, etiology | | | | CARDIOLOGY [address] | [address] | of cardiac valve | | | | [address] | [place] [address] | disease unspecified | | | | [place] [address] | [phone] | (Primary Dx) | | | | [phone] | | | +--------+ + + + [...] + + + | | [place] [address] | + + + + + | [...] LA/Ao: 1.05 D-E Excursion: 1.94 cm E-F Trinity: 0.03 | | m/s TAPSE: 1.28 cm [...] Phil: | | 0.47 m/s TV Dec Trinity: 2.23 m/s2 TV Dec Time: 286.00 ms TV E Phil: 0.63 | | m/s TV E/A Ratio: 1.33 Case Management Specialist: ANGELA Authenticated by: Arya Chris | | Report Date/Time: 10-28-2017 8:45:32 | + + + + | Procedure Note | + + | Kobi Cummings Results In - 10/28/2017 8:51 AM PDT Patient Name: Jose WU of | | : 1940Accession: [id number] Physician: Arya Chris | | MD ------REPORT [...] (A-L): | | 41.67 ml/m2LAAs A2C: 21.98 [id number] A-L A2C: 74.32 mlLALs A2C: 5.51 cmLAAs A4C: | | 22.28 oz7KIKCB A-L A4C: 76.90 mlLALs A4C: 5.48 cmRAAd: 5.56 tg3CMNFD A-L: 7.54 | | mlRAEDV MOD: 7.87 mlRALd: 3.48 cmAo Diam: 3.64 cmAV Cusp: 0.86 cmLA Diam: 3.85 | | cmLA/Ao: 1.05 D-E Excursion: 1.94 cmE-F Trinity: 0.03 m/sTAPSE: 1.28 cmIVC | | diameter: 2.19 cmIVC collapse: 1.04 cmIVC % collapse: 49.97 %HR: 46.93 BPMAV | | maxP.34 mmHgAV meanP.11 mmHgAV Vmax: 4.19 m/Frank Vmean: 3.01 m/Frank VTI: | | 106.80 cmAVA Vmax: 1.06 cm2AVA (VTI): 1.11 ms7GJMF Vmax: 0.00 cm2/m2AVAI (VTI): | | 0.00 cm2/m2LVCI Dopp: 3.41 l/dyum0BCMI Dopp: 6.22 l/minHR: 52.38 BPMLVOT maxPG: | [...] | m/sTV A Phil: 0.47 m/sTV Dec Trinity: 2.23 m/s2TV Dec Time: 286.00 msTV E Phil: | | 0.63 m/sTV E/A Ratio: 1.33 Case Management Specialist: ANGELAAuthenticated by: Arya Chris | | MDReport [...] | |D-E Excursion: 1.94 cm | |E-F Trinity: 0.03 m/s | |TAPSE: 1.28 cm | [...] A Phil: 0.47 m/s | |TV Dec Trinity: 2.23 m/s2 | |TV Dec Time: 286.00 ms | |TV E Phil: 0.63 m/s | |TV E/A Ratio: 1.33 | | | |Case Management Specialist: ANGELA | |Authenticated by: Arya Chris MD [...]
--- OUTSIDE RECORDS SUMMARY | ~2017-11-11 | XMS | Encounter Summary ---
Demographics + + + | Address | [address] | | | [place] [address] | + + + | Home Phone | | + + + | Preferred Language | Unknown | + + + | Marital Status | | + + + | Buddhism Affiliation | 1041 | + + + | Race | Unknown | + + + | Ethnic Group | Unknown | + + + Author + + + | Author | [facility] | | | and [place] | + + + | Organization | [facility] | | | and [...] Team Providers + +------+ + | Care Lumber Material Handler Name | Role | Phone | + [...] [place] | location, | | | | [place], [place] | [address] | unspecified back | | | | [address] | | pain laterality, | | | | [phone] | | unspecified | | | | [...] [place] | | | | | | [address] | | | | | | | | | | | | Zackery Wei | | | | | | TYRA Menezes [address] | | | | | | [address] | | | | | | [place], [place] | | | | | | [address] | | | | | | | [...]
--- OUTSIDE RECORDS SUMMARY | ~2017-11-11 | XMS | Encounter Summary ---
Demographics + + + | Address | [address] | | | [place] [address] | + + + | Home Phone | | + + + | Preferred Language | Unknown | + + + | Marital Status | | + + + | Restorationist Affiliation | 1041 | + + + | Race | Unknown | + + + | Ethnic Group | Unknown | + + + Author + + + | Author | [facility] | | | and [place] | + + + | Organization | [facility] | | | and [...] Providers + +------+ + | Care Supervisor Insecticide Name | Role | Phone | + [...] [address] | | | | | Mansura [place], | [address] [place] | | | | | [place] [address] | [place] [address] | | | | | [phone] | [phone] | | | | | | | [...] 2018 | Visit | | [address] | | | | | | [address] [place] | | | | | | [address] | | | | | | | | | | | | Zackery Wei | | | | | | TYRA Menezes [address] | | | | | | [address] | | | | | | [place] | | | | | | [address] | | | | | | | | +--------+---------+ + + + as of this encounter Visit Diagnoses Not on filein this encounter"
--- OUTSIDE RECORDS SUMMARY | ~2017-11-11 | XMS | Encounter Summary ---
Demographics + + + | Address | [address] | | | [place] [address] | + + + | Home Phone | | + + + | Preferred Language | Unknown | + + + | Marital Status | | + + + | Pentecostalism Affiliation | 1041 | + + + | Race | Unknown | + + + | Ethnic Group | Unknown | + + + Author + + + | Author | [facility] | | | and [place] | + + + | Organization | [facility] | | | and [place] [...] Team Providers + +------+ + | Care Reducer Name | Role | Phone | + [...] | | | | | pain | [address] | | | | | | [address] | [address] | | | | | | WAY | [place], | | | | | | [place] | [place] [address] | | | | | | [place] [address] | Phone: | | | | | | Phone: | [phone] | | | | | | [phone] | Fax: | | | | | | Fax: | [phone] | | | | | | [phone] | | +--------+--------+ + + + + Encounter Details +--------+---------+ + + + | Date | Type | Department | Care Team | Description | +--------+---------+ + + + | 10/06/ | Office | [facility] | [place] | Coronary artery | | 2017 | Visit | [address] | MD Dai [address] | disease involving | | | | [address] [place] | [address] | upper sioux coronary | | | | [place] [address] | [place] | artery of upper sioux | | | | [phone] | [address] | heart without angina | | | [...] October 15, 2017 at 12:15 PM at [facility]. Please report to [facility] no [...] APPOINTMENT TODAY AT 10:30AM. Call us at [phone] with any questions. 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) Diplopia Foot pain, left Foraminal stenosis of lumbar region 09/28/2017 Gout Hemangioma Thoracic History of lumbar laminectomy - L4/L5 09/28/2017 Hypertension Hypothyroidism Ischemic heart disease Left lumbar radiculopathy 09/28/2017 Low back pain Lytic lesion of bone on x-ray [place] (myocardial infarction) 2007 Mixed hyperlipidemia MRSA (methicillin [...] LAMINECTOMY Surgeon: Nathaniel Hanson MD done at [facility] Main OR SKIN TAG REMOVAL Left 05/26/2017 Lateral Thigh TONSILLECTOMY Family History: Family History Problem Relation Age of Onset High cholesterol Mother Diabetes Mother Heart attack Father Arthritis Father Diabetes Father Prostate cancer Neg Hx Social History: Social History Social History Marital status: Spouse name: Marci Number of children: 4 Years of education: 8 Occupational History Palliative Senior [employer] Social History Main Topics Smoking status: Former [...] POC Trace (A) Negative, 100 mg/dL Specific [place], UA, POC 1.020 1.001 - 1.030 Blood, [...] | | | | [address] [place] | | | | | | [address] | | | | | | | | | | | | Zackery Wei | | | | | | TYRA Menezes [address] | | | | | | [address] | | | | | | [place], [place] | | | | | | [address] | | | | | | | [...] VIRGINIA GRADY MD | | | | ([id number]) on 10/07/2017 7:33:35 AM | | | |Confirmed by VIRGINIA GRADY MD ([id number]) on 10/07/2017 7:33:35 AM | | | | | | + + +------ -----+ + + + | Specimen | Performing Laboratory | + + + | | [facility] | + + + in this encounter Visit Diagnoses + + | Diagnosis | + + | 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
--- OUTSIDE RECORDS SUMMARY | ~2017-11-11 | XMS | Encounter Summary ---
Demographics + + + | Address | [address] | | | [place] [address] | + + + | Home Phone | | + + + | Preferred Language | Unknown | + + + | Marital Status | | + + + | Confucianism Affiliation | 1041 | + + + | Race | Unknown | + + + | Ethnic Group | Unknown | + + + Author + + + | Author | [facility] | | | and [place] | + + + | Organization | [facility] | | | and [place] [...] Team Providers + +------+ + | Care Crusher And Blender Operator Name | Role | Phone | [...] | | | | | | [place] [address] | | | | | | [phone] | | | +--------+ + + + [...] 2018 | Visit | | [address] | | | | | | [address] [place] | | | | | | [address] | | | | | | | | | | | | Zackery Wei | | | | | | TYRA Menezes [address] | | | | | | [address] [facility] [address] | | | | | | [place] | | | | | | [address] | | | | | | | | +--------+---------+ + + + as of this encounter Visit Diagnoses Not on filein this encounter"
--- OUTSIDE RECORDS SUMMARY | ~2017-11-11 | XMS | Encounter Summary ---
Demographics + + + | Address | [address] | | | [place] [address] | + + + | Home Phone | | + + + | Preferred Language | Unknown | + + + | Marital Status | | + + + | Sikh Affiliation | 1041 | + + + | Race | Unknown | + + + | Ethnic Group | Unknown | + + + Author + + + | Author | [facility] | | | and [place] | + + + | Organization | [facility] | [...] Team Providers + +------+ + | Care Special Services Agent Name | Role | Phone | + [...] + + | 10/08/ | Telephone | [facility] | [place] | Surgery Appointment | | 2018 | | [address] | MD Dai [address] | | | | | [address] [place] | [address] | | | | | [place] [address] | [place], [place] | | | | | [phone] | [address] | | | | | | | [...] [place] | | | | | | [id number] | | | | | | | | +--------+---------+ + + + as of this encounter Visit Diagnoses Not on filein this encounter"
--- OUTSIDE RECORDS SUMMARY | ~2017-11-11 | XMS | Encounter Summary ---
Demographics + + + | Address | [address] | | | [place] [address] | + + + | Home Phone | | + + + | Preferred Language | Unknown | + + + | Marital Status | | + + + | Caodaism Affiliation | 1041 | + + + | Race | Unknown | + + + | Ethnic Group | Unknown | + + + Author + + + | Author | [facility] | + + + | Organization | [facility] | + + + | Address | Unknown | + + + | Phone | Unavailable | + + + Support + + + + + | Name | Relationship | Address | Phone | + + + + + | Marci Wu | [place] | [address] | | | | | [place] | | | | | [address] | | + + + + + Care Team Providers + +------+ + | Care Skein Mercerizing Machine Operator Name | Role | Phone | [...] | | | valve | MD [address] | | | | | | stenosis, | [place] | | | | | | etiology of | DRIVE | | | | | | cardiac | [place] | | | | | | valve | [address] | | | | | | disease | Phone: | | | | | | unspecified | [phone] | | | | | | Procedures | Fax: | | | | | | Echo | [phone] | | | | | | cardiac | | | | | | | adult | | | | | | | complete | | | + +--------+ + + + + Encounter Details +--------+ + + + + | Date | Type | Department | Care Team | Description | +--------+ + + + + | 10/27/ | Orders Only | [facility] | Aries | Aortic valve | | 2017 | | [facility] | Arya Reyes MD | stenosis, etiology | | | | CARDIOLOGY [address] | [address] | of cardiac valve | | | | [address] | [place] [address] | disease unspecified | | | | [place] [address] | [phone] | (Primary Dx) | | | | [phone] | | | +--------+ + + + [...] + + + | | [place] [address] | + + + + + | [...] A4C: 76.90 ml LALs A4C: 5.48 cm Karne: 5.56 cm2 RAEDV A-L: 7.54 ml | | RAEDV MOD: 7.87 ml RALd: 3.48 cm Ao Diam: 3.64 cm AV Cusp: 0.86 cm | | LA Diam: 3.85 cm LA/Ao: 1.05 D-E Excursion: 1.94 cm E-F Blackford: 0.03 | | m/s TAPSE: 1.28 cm [...] Phil: | | 0.47 m/s TV Dec Black[place]: 2.23 m/s2 TV Dec Time: 286.00 ms TV E Phil: 0.63 | | m/s TV E/A Ratio: 1.33 Caretaker Grounds: ANGELA Authenticated by: Arya Chris | | Report Date/Time: 10-28-2017 8:45:32 | + + + + | Procedure Note | + + | Kobi Cummings Results In - 10/28/2017 8:51 AM PDT Patient Name: Jose WU of | | : 1940Accession: [id number] Physician: Aray Chris | | MD ------REPORT | | [...] (A-L): | | 41.67 ml/m2LAAs A2C: 21.98 [id number] A-L A2C: 74.32 mlLALs A2C: 5.51 cmLAAs A4C: | | 22.28 co3RFGSU A-L A4C: 76.90 mlLALs A4C: 5.48 cmRAAd: 5.56 [id number] A-L: 7.54 | | mlRAEDV MOD: 7.87 mlRALd: 3.48 cmAo Diam: 3.64 cmAV Cusp: 0.86 cmLA Diam: 3.85 | | cmLA/Ao: 1.05 D-E Excursion: 1.94 cmE-F Blackford: 0.03 m/sTAPSE: 1.28 cmIVC | | diameter: 2.19 cmIVC collapse: 1.04 cmIVC % collapse: 49.97 %HR: 46.93 BPMAV | | maxP.34 mmHgAV meanP.11 mmHgAV Vmax: 4.19 m/Frank Vmean: 3.01 m/Frank VTI: | | 106.80 cmAVA Vmax: 1.06 cm2AVA (VTI): 1.11 oe0QFPN Vmax: 0.00 cm2/m2AVAI (VTI): | | 0.00 cm2/m2LVCI Dopp: 3.41 l/cafd0MVOU Dopp: 6.22 l/minHR: 52.38 BPMLVOT maxPG: | [...] | m/sTV A Phil: 0.47 m/sTV Dec Blackford: 2.23 m/s2TV Dec Time: 286.00 msTV E Phil: | | 0.63 m/sTV E/A Ratio: 1.33 Caretaker Grounds: ANGELAAuthenticated by: Arya Chris | | MDReport [...] | |D-E Excursion: 1.94 cm | |E-F Blackford: 0.03 m/s | |TAPSE: 1.28 cm | [...] A Phil: 0.47 m/s | |TV Dec [place]: 2.23 m/s2 | |TV Dec Time: 286.00 ms | |TV E Phil: 0.63 m/s | |TV E/A Ratio: 1.33 | | | |Caretaker Grounds: ANGELA | |Authenticated by: Arya Chris MD [...]
[~2017-11-11 16:12] MED LIST changes: +GABAPENTIN300 MG PO; +NORCO 10-325 T1 EACH PO
[2017-11-11] MEDS ORDERED: LYRICA50 MG PO (16:31)
[2017-11-11] MEDS ORDERED: ALEVE220 M1 PO (16:32)
--- NOTE | 2017-11-11 19:05 | NUR ---
BEDSIDE REPORT RECEIVED FROM JASBIR GALVEZ. PT IS AWAKE, DROWSY, LYING IN BED, AT BEDSIDE. JASBIR GALVEZ DRAWING BLOOD FROM IV SITE FOR LAB. DR. SANTIAGO PHONED REGARDING NO IVF ORDER, NO FLUIDS ORDERED. WILL WAIT FOR BLOOD. CLEAR LIQUID DIET. PT ON TELE 8, BRADYCARDIC, REGULAR RHYTHM. NO REQUESTS AT THIS TIME, IV SALINE LOCKED.
--- NOTE | 2017-11-11 20:10 | NUR ---
PT ASSESSMENT COMPLETE. PT IS ORIENTED X 4. RATES CHRONIC PAIN IN LEFT HIP 08/05.CONCERNED WITH PAIN MANAGEMENT WITHOUT ALLEVE, EDUCATED PT ON AVAILABLE PAIN MGMT MEASURES, PT GIVEN HOT PACK FOR HIP. HR SINUS BRADYCARDIA, 48, REGULAR RHYTHM. BOWEL TONES ACTIVE X 4. ABD SOFT NON-DISTENDED, NON-TENDER W PALPATION, LUNGS CLEAR THROUGHOUT. 1+ PITTING EDEMA BILATERALLY FEET,ANKLES, LEFT HAND, SENSATION INTACT. PT ON CLEAR LIQUID DIET, GIVEN BROTH, JELLO AND ICE WATER. NO NAUSEA. CALL LIGHT IN REACH, ORIENTATION TO ROOM PROVIDED, FAMILY IN ROOM.
--- NOTE | 2017-11-11 22:25 | NUR ---
VERIFIED 1ST UNIT BLOOD PRODUCT WITH RN TEJAL, BLOOD PRODUCT INFUSING AT THIS TIME, VITALS BP 132/52 (95), 98.4 ORAL TEMPERATURE, HR 51, SPO2 95% ON RA, RR 16. SBA WITH PT TO RESTROOM FOR VOID. PT EDUCATION PROVIDED REGARDING ADVERSE REACTIONS TO BLOOD TRANSFUSION BY JASBIR TOURE. EDUCATION ALSO PROVIDED BY DR. SANTIAGO. PT HAS NO QUESTIONS. RN REMAINS IN ROOM FOR FIRST 15 MINUTES.
--- NOTE | 2017-11-11 22:55 | NUR ---
DR. CLOUD IN PT ROOM TO DISCUSS PLAN OF CARE, PTS QUESTIONS ANSWERED. BLOOD PRODUCTS INFUSING WNL. CBG 120 AT THIS TIME, NO INSULIN ADMINISTERED. PT GIVEN ENSURE CLEAR, JELLO REQUESTED. PRN PERCOCET ADMINISTERED FOR PAIN REQUESTED BY PT, RATES PAIN 2/10 IN LEFT HIP/LEG. PT HAS NO ADDL REQUESTS. LIGHTS OFF IN ROOM. WILL CONTINUE TO MONITOR. CALL LIGHT IN REACH.
--- NOTE | 2017-11-12 00:13 | NUR ---
IN PT ROOM TO CHECK ON PT, PT SLEEPING, IV PUMP BEEPING ARM BENT DISTAL OCCLUSION. PT AWAKENS TO RN VOICE. ARM STRAIGHTENED PILLOW IN PLACE FOR COMFORT. FIRST UNIT BLOOD PRODUCT INFUSING WNL. CALL LIGHT IN REACH.
--- NOTE | 2017-11-12 00:55 | NUR ---
CHECKED ON PT. PT APPEARS TO BE SLEEPING, EYES CLOSED, BREATHING NON-LABORED,EQUAL CHEST RISE BILATERALLY, RR 14. FIRST UNIT BLOOD INFUSING WNL. CALL LIGHT IN REACH, LIGHTS OFF IN ROOM.
--- NOTE | 2017-11-12 01:25 | NUR ---
FIRST UNIT PRBCS INFUSED AT THIS TIME. IV FLUSHED WITH SALINE WNL. FIRE FIGHTING EQUIPMENT SPECIALIST TEJAL TO RETRIEVE SECOND UNIT PRBCS AT THIS TIME. CALL LIGHT IN REACH. PT APPEARS TO BE BACK TO SLEEP, EYES CLOSED, BREATHING NON-LABORED, HR 51.
--- NOTE | 2017-11-12 01:55 | NUR ---
SECOND UNIT PRBCS INFUSING AT THIS TIME AT 75 ML/HR, VERIFIED WITH RN MELONY. PT ALERT AND ORIENTED, NO COMPLAINTS OF PAIN OR ADVERSE REACTION TO BLOOD PRODUCTS. RN REMAINS IN ROOM TO MONITOR FOR 15 MINUTES.
--- NOTE | 2017-11-12 02:10 | NUR ---
SECOND UNIT BLOOD INFUSING WNL, 15 MINUTES VITAL SIGNS TEMPERATURE 98.2 ORAL, BP 102/49, HR 50, RR 12, 96% ON ROOM AIR. PT SLEEPING, AWAKENS EASILY TO VOICE. ASSESSMENT COMPLETE AT THIS TIME. LUNGS CLEAR, DIMINISHED THROUGHOUT ALL LOBES. HR BRADYCARDIA, REGULAR RHYTHM. BOWEL TONES ACTIVE X 4, ABDOMEN SOFT, NON-TENDER. EDEMA BILATERALLY LOWER EXTREMITIES 1+, UNCHANGED FROM START OF SHIFT. CALL LIGHT IN REACH, LIGHTS OFF IN ROOM. WILL CONTINUE TO MONITOR.
--- NOTE | 2017-11-12 02:30 | NUR ---
ONE HOUR POST FIRST UNIT PRBCS VITALS COMPLETE, NO ADVERSE REACTION NOTED. BP 108/51 (81), HR 49, RR 14, TEMPERATURE 98.1 ORAL. PT RESTING, EYES CLOSED, BREATHING NON-LABORED, SPO2 94% ON RA.
--- NOTE | 2017-11-12 03:30 | NUR ---
IN PT ROOM, IV PUMP BEEPING, PT SLEEPING, EYES CLOSED, AWAKENS TO RN VOICE, REPOSITIONED ARM ON PILLOW, PRBCS INFUSING WNL. URINAL EMPTIED AT THIS TIME 350 ML. SPO2 96% ON RA, HR 51. CALL LIGHT IN REACH.
--- NOTE | 2017-11-12 05:15 | NUR ---
SECOND UNIT PRBC COMPLETE AT 0510, IV SALINE LOCKED. PT SITTING UP AT SIDE OF BED, SCDS ON. PT GIVEN JELLO, BROTH ALLOTTED PER DR. CLOUD, PT INFORMED NPO AT 0800. URINAL EMPTIED AT THIS TIME. NO ADDL REQUESTS, CALL LIGHT IN REACH.
--- NOTE | 2017-11-12 05:46 | NUR ---
PT RECEIVED 2 UNITS PRBCS WNL THIS SHIFT, NO ADVERSE REACTIONS NOTED. PT IN SINUS BRADYCARDIA THROUGHOUT SHIFT, ON TELE 8, HR IN LOW 50S. LUNGS CLEAR AND DIMINISHED THROUGHOUT SHIFT, VITALS STABLE, AFEBRILE. PT HAS HAD NO BMS, ADEQUATE URINE OUTPUT. CONSULT WITH DR. CLOUD FOR EGD 11/12/17. CLEAR LIQUID DIET UNTIL 0800. RECEIVED PRN PERCOCET X 1 FOR CHRONIC PAIN IN LEFT LEG/HIP.
--- NOTE | 2017-11-12 06:30 | NUR ---
PT UP IN CHAIR, HAD SMALL BROWN BM, 250 ML VOID. SOME INCONTINENCE OF URINE ON GOWN AND PERSONAL UNDERWEAR, CHANGED CLOTHING. PATIENT ACCESS ASSOCIATE NOW IN ROOM. CALL LIGHT IN REACH.
--- NOTE | 2017-11-12 07:35 | NUR ---
PATIENT IS RELAXING IN HIS BED.WOULD LIKE TO TAKE A SHOWER IF HE CAN.
--- NOTE | 2017-11-12 07:45 | NUR ---
DID PATIENT'S BLOOD SUGAR CHECK AND GETTING STUFF READY SO HE CAN TAKE A SHOWER TODAY.
--- NOTE | 2017-11-12 08:11 | NUR ---
MORNING ASSESSMENT AND MEDICATIONS DUE. PT RESTING IN BED. AWAKENS TO TOUCH AND LIGHT SHAKE. PT FALLS BACK TO SLEEP QUICKLY. PT HAD ASKED FOR PAIN MEDICINE FOR 2/10 INCREASING PAIN IN HIS LEFT HIP DURING HAND OFF. PAIN MEDICATION NOT GIVEN R/T NEUROLOGICAL EXAM. PT ORIENTED TO SELF AND DATE BUT DISORITED TO PLACE AND EVENT. PT FALLING BACK TO SLEEP MID SENTENCE. PT ABLE TO TAKE MORNING MEDICATION. FLUIDS STARTED PER ORDER. CHARGE NURSE TO ROOM TO SEE UPDATE IN PT STATUS. PT BACK TO SLEEP. BED RAILS UP. [facility].
--- NOTE | 2017-11-12 08:59 | CONS ---
[facility] [address] [place], [place] [address] Signed DATE OF CONSULTATION: 11/11/2017 CONSULTATION PHYSICIAN: Kena Cloud MD REQUESTING PHYSICIAN: Dr. Billingsley. PROBLEM: Profound anemia, known history of severe aortic stenosis, anticipating aortic valve replacement. HISTORY OF PRESENT ILLNESS: This 77-year-old white man is known to me from the past as it turns out. He had upper abdominal pain, and was evaluated by me on November 09, 2015, by upper endoscopy. This showed diffuse gastritis, duodenitis and hiatal hernia. In 2010, he underwent colonoscopy, which had shown scattered diverticula and mild proctitis. He was admitted to the hospital this evening under the care of Dr. Billinglsey, where he had been identified as having chronic back pain, and persistent use of Naprosyn 660 mg three times a day along with hydrocodone for control of the back pain. Three months ago, the patient had noted fatigue symptoms. The patient had weight loss of approximately 20 pounds over the past three months, though he has had no associated nausea, vomiting, hematemesis, or heartburn. He has also had black-colored stools for more than a month. His hematocrit on October 14, 2017, was 24. Hematocrit on November 10, was 20. His primary provider was Mad[facility], and he was sent to the emergency room for further evaluation and treatment and has been admitted for transfusion therapy and further evaluation of his anemia. He is known to have severe aortic stenosis with an ejection fraction of 55%, but valve area of less than 1 cm2. At [facility] he has been considered for an aortic valve replacement, possibly by percutaneous methods. He has had other issues including left femoral artery stenosis, benign prostatic hypertrophy, longstanding reflux disease, as well as duodenitis and gastritis, depression, chronic low back pain, type 2 diabetes, and hyperlipidemia. He continues to take alcohol, but he does not smoke. The patient reminds me I have performed lung resection on his in the past. REVIEW OF SYSTEMS: He denies any dysphagia, hematemesis, or blood per rectum proper. He has had "black stools." Electronically Signed By: KENA CLOUD MD 11/12/17 0859 PATIENT NAME: SUZIE WU CONSULTATION DATE OF : 40 REPORT #: [id number] PHYSICIAN: KENA CLOUD MD PCP: MADHAV ETIENNE REPORT IS CONFIDENTIAL AND NOT TO BE RELEASED WITHOUT AUTHORIZATION [facility] [address] [place], [place] [address] Signed PHYSICAL EXAMINATION: GENERAL: A sedate, comfortable, alert and oriented man who is bald, though with mustache. He shows no sign of respiratory distress. Blood is infusing in left upper extremity IV site. ABDOMEN: Soft and nondistended. He has no petechiae. EXTREMITIES: No clubbing, cyanosis, or edema. LABORATORY STUDIES: Showed a white count of 11.7, hematocrit 18.2, and platelets of 483,000, Chem profile was normal, creatinine at 1.41. ASSESSMENT: The patient very likely has an upper gastrointestinal source of his anemia. His Naprosyn use has been relentless due to his orthopedic pain, and has likely contributed to a peptic source of bleeding. I have recommended upper endoscopy. It is certainly appropriate and needed to undergo transfusion and that is underway. The greatest hazard of patients' with severe aortic stenosis is hypovolemic ischemia. He has had judicious administration of fluids and now blood and that is appropriate and welcome. I discussed with him a plan for upper endoscopy tomorrow to better characterize the source of his anemia. The risks of bleeding, infection, cardiopulmonary complications, and so forth were reviewed in detail. He understands, and wishes to proceed. For the time being, he will complete his transfusion therapy. MD NIURKA Maloney/INNA /[id number] cc: ZEE Gotti Copies: MADHAV ETIENNE Electronically Signed By: KENA CLOUD MD 11/12/17 0859 PATIENT NAME: SUZIE WU CONSULTATION DATE OF : 40 REPORT #: [id number] PHYSICIAN: KENA CLOUD MD PCP: MADHAV ETIENNE REPORT IS CONFIDENTIAL AND NOT TO BE RELEASED WITHOUT AUTHORIZATION [facility] [address] [facility] [place] [address] Signed ~ Electronically Signed By: KENA CLOUD MD 11/12/17 0859 PATIENT NAME: SUZIE WU CONSULTATION DATE OF : 40 REPORT #: [id number] PHYSICIAN: KENA CLOUD MD PCP: MADHAV ETIENNE REPORT IS CONFIDENTIAL AND NOT TO BE RELEASED WITHOUT AUTHORIZATION
--- NOTE | 2017-11-12 09:14 | NUR ---
THIS RN TO ROOM TO OBTAIN BLOOD BAND STICKER. PT FOUND UP IN ROOM WANDERING AROUND WITH URINAL IN HANDS. PIV PULLED OUT BY PT AND LYING ON THE FLOOR. URINE NOTED ALL OVER FLOOR. PT GUIDED TO RESTROOM AND SETTLED ONTO TOILET. FLOOR CLEANED BY STUDENT RN. PIV FLUIDS STOPPED. PT DENIES FALLING WHILE UP IN THE ROOM. PIV SITE BANDAGED. PT ASSISTED BACK TO BED, 1 PERSON STANDBY FWW. CLOTHS, SCD'S AND SOCKS SATURATED WITH URINE AND BLOOD FROM IV SITE. GOWN, SOCKS AND SCD'S CHANGED. NEW PIV STARTED PER PROTOCOL, BRISK BLOOD RETURN NOTED WITH IV START. IV FLUIDS INFUSING. DAUGHTER ARRIVED. BED RAILS UP. CALL LIGHT WITHIN REACH. PT DEMONSTRATES USE OF CALL LIGHT. BED ALARM ON. FALL EDUCATION DONE. PT VERBALIZES UNDERSTANDING THAT HE WILL CALL NURSE IN THE FUTURE.
--- NOTE | 2017-11-12 09:25 | NUR ---
UNIT OF BLOOD ARRIVED. STARTED PER PROTOCOL (SEE BLOOD ADMINISTRATION RECORD). PT UP TO RESTROOM. ATTEMPTS TO GET OUT OF BED AGAIN WITHOUT CALLING. BED ALARM ALARMS. THIS RN ASSISTS PT TO RESTROOM. FALL PREVENTION EDUCATION REINFORCED. PT BACK TO BED. NO REACTION TO BLOOD NOTED AT THIS TIME. RATE INCREASED PER PROTOCOL. PT RESTING, WATCHING TV, DOZES OFF FREQUENTLY. CALL LIGHT WITHIN REACH. BED ALARM ON. BED RAILS UP. DAUGHTER AT BEDSIDE.
--- NOTE | 2017-11-12 10:43 | NUR ---
THIS [facility]. PT RESTING WITH EYE CLOSED, RR = 16BPM. DAUGHTER AT BEDSIDE TALKING WITH CASE MANAGEMENT. CALL LIGHT WITHIN REACH. REQUESTS OR COMPLAINTS AT THIS TIME.
--- NOTE | 2017-11-12 10:51 | NUR ---
PT CALL LIGHT ON. PT ATTEMPTING TO GET OUT OF BED. THIS RN TO BEDSIDE. ASSISTED PT UP TO RESTROOM AND BACK TO BED. PT UPSET WITH BEING IN HOSPITAL ROOM. WANTS TO GO OUTSIDE. PT INFORMED THAT DR. CLOUD WILL BE COMING SOON FOR HIS PROCEEDURE. PT AGREES TO STAY IN ROOM AND WANTS BACK INTO BED. DAUGHTER REMAINS AT BEDSIDE. CALL LIGHT WITHIN REACH. IV RUNNING, SDC'S REATTACHED.
--- NOTE | 2017-11-12 11:10 | NUR ---
PRE OP CHECK LIST COMPLETED AND PRINTED. PRODUCTION CLERK HERE TO CREDIT ADMINISTRATOR PT FOR EGD. REPORT GIVEN. PT TRANSFERED TO OR STRETCHER. BLOOD CONTINUES TO RUN. PRODUCTION CLERK STATES SHE WILL TAKE FINAL VITALS SIGNS WHEN UNIT FINISHES. PTS DAUGHTER TRAVELING WITH PT TO PROCEEDURE.
--- NOTE | 2017-11-12 11:29 | NUR ---
AFTER TALKING WITH THE PT DAUGHTER--SHE VOICED CONCERNS ABOUT NEEDING MORE HELP AT HER PARENTS HOUSE SHE DOES NOT FEEL LIKE THEY ARE CAPABLE ESPECIALLY THESE LAST COUPLE OF MONTHS SHE STATES THINGS HAVE GOTTEN A LOT WORSE THAN THEY WERE. SHE STATED THAT HE FATHER IS HAVING TIMES WHERE HE IS FEELING SUICIDAL AND LIKE JUST WANTS TO GIVE UP BECAUSE NO ONE WILL HELP HIM FEEL BETTER-SHE ALSO STATES THAT HE IS STARTING TO GET CONFUSED AND SOMETIMES ANGRY.
--- NOTE | 2017-11-12 11:32 | NUR ---
CALLED AND TALKED WITH ADWOA AND SHE STATED SHE WOULD GET A LIST OF CAREGIVERS TO HER AND SHE WOULD HELP HER WALK THROUGH THE PROCESS OF GETTING THEM HOOKED UP WITH ONE.
--- NOTE | 2017-11-12 11:51 | NUR ---
JASBIR GALVEZ INFORMED ME THAT PT WAS TAKEN TO SURGERY. WILL FOLLOW NEEDED
--- NOTE | 2017-11-12 12:23 | NUR ---
Patient used call light to request assistance to the commode. During transfer from bed to commode, patient stated that she was experiencing pain in her right knee and lower extremeties upon transfer. Patient used commode and then was returned to bed. After getting adjusted in bed patient claimed that her pain was now at a 3/10 and denied the need for pain medication at this time. Patient also stated that she was concerned about a minor tremor in both hands and feet, although this was not a new incidence for her.
--- NOTE | 2017-11-12 14:20 | NUR ---
PT ARRIVED FROM PACU. PT TRANFERED TO BED. MD AT BEDSIDE TALKING WITH FAMILY. PT IRRITABLE, REFUSING CARE AND EXAMINATIONS. PT ASSISTED TO USE URINAL AND THEN BACK TO BED. PT REQUESTS FOOD. ICE CREAM PROVIDED PER REQUEST. PIV SECURED WITH COBAN. PT RESTING WITH EYES CLOSED OFF AND ON, RR = 14BPM. FAMILY AT BEDSIDE. CBG TAKEN, INSULIN GIVEN. CALL LIGHT WITHIN REACH. BED ALARM ON.
--- NOTE | 2017-11-12 15:32 | NUR ---
PT CALL LIGHT ON. PT REQUESTS HELP TO USE URINAL. PT UP AT SIDE OF BED. ABLE TO VOID. PT GOWN WET, GOWN CHNAGED. PT BACK TO BED WITHOUT INCIDENT. URINAL AT BEDSIDE. BED ALARM ON. CALL LIGHT WITHIN REACH.
--- NOTE | 2017-11-12 16:09 | NUR ---
11/12/17 1609 Taylor Carrillo 1209 PT ARRIVED WITH ORAL AIRWAY IN PLACE, OXYMASK AT 10L IN PLACE. RESP EVEN AND UNLABORED. PT NONAROUSABLE. HR 40 AND BP 105/37, SMALL OFFSET PRINTER AT BEDSIDE. 1211 SMALL OFFSET PRINTER GIVING BP MEDICAITON. RN CONTINUES TO MONTIOR AIRWAY AND VITAL SIGNS. MD NOTIFIED, EKG AND CARDIAC LABS ORDERED. THREE LEAD RHYTHM STRIP SHOWING ABNORMALITIES ALONG WITH BRADYCARDIA 1216 SMALL OFFSET PRINTER GIVING BP MEDICAITON. HR DECREASING AND BP INCREASING. 1220 SMALL OFFSET PRINTER REMAINS AT BEDSIDE, PT CONTINUES TO BE NONAROUSABLE WITH ORAL AIRWAY IN PLACE. 1227 CB. RT AT BEDSIDE FOR EKG PER MD AND SMALL OFFSET PRINTER, SMALL OFFSET PRINTER GIVNING BP MEDICATION, HR 43. 1230 PT CONTINUES TO BE NONAROUSABLE TO PAIN AND VERBAL STIMULI. BASELINE EKG BEING OBTAINED. 1245 BASELINE EKG SHOWED NO PERVIOUS BUNDLE BRANCH BLOCK FROM 2014. 1253 PACING PAD CONNECTED TO PT, LABS CALLED FOR RULE OUT CARDIAC EVENT PER MD. 1254 PT AROUASBALE, ORAL AIRWAY REMOVED. HR 59 PT OPENING HIS EYES, UNABLE TO FOLLOW COMMANDS BUT ABLE TO DEEP BREATH. PT CONFUSED, ALERT AND ORIENTED X1. DENIES PAIN AND NO GRIMACING. DOES NOT APPEAR TO SHOW ANY SIGNS OR PAIN. RESP EVEN AND UNLABORED. 1300 LABS AT BEDSIDE. 1311 PT TRYING TO GET OUT OF BED TO GO HOME, PT REORINETED TO PACU AND THAT HE IS UNABLE TO GET OUT OF BED. PT USING URINAL. BP INCREASED, SMALL OFFSET PRINTER AWARE. 1324 SMALL OFFSET PRINTER CHECKING ON PT, AWARE OF INCREASED BP. 1335 MD SANTIAGO CALLED TO CONSULT ON POSSIABLE ACUTE CHANGES IN RHYTHM. ASKED TO COME TO PACU STAT. 1338 SMALL OFFSET PRINTER AT BEDSIDE TO ANALYZE RHYTHM CHANGES. RT AT BEDSIDE FOR SECOND EKG. 1342 MD SANTIAGO AT BEDSIDE, UPDATED ON PT AND AFTER ANALYZING PT ORDERED PT TO GO TO MED-SURG FLOOR IF CARDIAC LABS ARE NEGATIVE AND CCU IF POSITIVE. 1400 CARDIAC LABS NEGATIVE AND PT READY FOR TRANSFER TO MED-SURG. PT ALERT AND ORIENTED X1, BASELINE ACCORDING TO FAMILY. REFER TO SCANED IN VITAL SIGNS FOR FULL VITAL SIGNS DURING PACU STAY.
--- NOTE | 2017-11-12 16:51 | NUR ---
VITALS AND ASSESSMENT DUE. THIS RN TO BEDSIDE. PT UP WITH WOOD FINISHER APPRENTICE TO RESTROOM. PT BACK TO BED. PT ORIENTED AT THIS TIME. ASSESSMENT DONE. MEDICATION GIVEN. PT RESTING WITH EYES CLOSED, RR = 16BPM. BED RAILS UP. CALL LIGHT WITHIN REACH. BED ALARM ON.
[2017-11-12] MEDS ORDERED: NORCO 10-325 T1 EACH PO (16:55)
--- NOTE | 2017-11-12 17:02 | NUR ---
PT CALL LIGHT ON. PT UP TO RESTROOM. PT REQUESTS PAIN MEDICAITON FOR 5/10 LEFT LEG PAIN. GIVEN (SEE MAR). PT BACK TO BED. BED RAILS UP. CALL LIGHT WITHIN REACH. BED ALARM ON.
--- NOTE | 2017-11-12 17:27 | NUR ---
VITALS DUE. TAKEN. PT UP IN BED EATING DINNER. BED ALARM ON. CALL LIGTH WITHIN REACH.
[2017-11-12] MEDS ORDERED: ALLOPURINOL100 MG PO (17:28)
[2017-11-12] MEDS ORDERED: LIDODERM1 EACH TOP (17:29)
--- NOTE | 2017-11-12 17:30 | NUR ---
MED REC COMPLETE
[2017-11-12] MEDS ORDERED: TRAZODONE HCL150 MG PO (17:33)
--- NOTE | 2017-11-12 18:41 | NUR ---
PT TRANSFERED TO MED/SURG TODAY FROM CCU, HERE FOR ANEMIA. 1 UNIT PRBCS GIVEN TODAY. EGD DONE TODAY. ULCERS FOUND. PT NOW ON CARAFATE. TELE DC'D TODAY. BLOOD SURGAR CHECKS. BED/CHAIR ALARM, PT DOES NOT USE CALL LIGHT. LIMITED CODE. PT PULLED OUT IV TODAY, NEW PIV IN LEFT HAND (PT TRIES TO PULL IT OUT FREQUENTLY). PERCOCET PRN FOR PAIN.
--- NOTE | 2017-11-12 19:00 | NUR ---
SHIFT REPORT RECEIVED. PATIENT APPEARS TO BE RESTING WITH EYES CLOSED. RR 18. FAMILY AT BEDSIDE. NO NEEDS AT THIS TIME.
--- NOTE | 2017-11-12 20:02 | NUR ---
ROUNDED CHARGE. PATIENT IS RESTING IN BED. FAMILY AT THE BEDSIDE. NO NEEDS NOTED. BED ALARM IS ON FOR SAFETY. CALL LIGHT IN REACH.
--- NOTE | 2017-11-12 20:28 | NUR ---
VITALS AND I&OS DONE AND CHARTED. BLOOD SUGAR DONE ANS CHARTED WELL. BEDSIDE TABLE AND CALL LIGHT WITHIN REACH.
--- NOTE | 2017-11-12 20:50 | NUR ---
EVENING MEDS GIVEN PER ORDER AND PATIENT ASSESSMENT COMPLETED. PATIENT WAS SLEEPING BUT AWOKE EASILY. HE IS ORIENTED TO SELF, SURROUNDINGS, AND THE YEAR. BUT HE WAS UNSURE FOR HIS REASON FOR BEING ADMITTED. HE REPORTS PAIN 5/10 IN HIS LEFT LEG, PRN NORCO X2 GIVEN. PATIENT TOLERATING ROOM AIR, LUNGS ARE CLEAR. TOLERATING REGULAR DIET, APPETITE IS POOR. DENIES ANY ABD DISCOMFORT. SKIN ON LEFT HIP/BUTTOCK NOTED TO HAVE SOME SMALL DARK DISCOLORATIONS; PATITENT DENIES ANY ITCHING OR DISCOMFORT AT THAT AREA. TRACE EDEMA NOTED IN NAOMIE LOWER EXTREMITIES. CMS INTACT.
--- NOTE | 2017-11-12 20:52 | EKG ---
[facility] [address] [facility] [place] [address] Signed Sinus bradycardia with 1st degree AV block Left bundle branch block Abnormal ECG When compared with ECG of 12-NOV-2017 13:36, (Unconfirmed) No significant change was found Confirmed by RODNEY SANTIAGO MD ([id number]) on 11/12/2017 8:52:24 PM Electronically Signed By: RODNEY SANTIAGO MD 11/12/172051 PATIENT NAME: SUZIE WU Electrocardiogram DATE OF : 40 PHYSICIAN: RODNEY SANTIAGO MD REPORT #: [id number] REPORT IS CONFIDENTIAL AND NOT TO BE RELEASED WITHOUT AUTHORIZATION
--- NOTE | 2017-11-12 20:52 | EKG ---
[facility] [address] [facility] [place] [address] Signed Marked sinus bradycardia with 1st degree AV block Left bundle branch block Abnormal ECG No previous ECGs available Confirmed by RODNEY SANTIAGO MD ([id number]) on 11/12/2017 8:52:17 PM Electronically Signed By: RODNEY SANTIAGO MD 11/12/172051 PATIENT NAME: SUZIE WU Electrocardiogram DATE OF : 40 PHYSICIAN: RODNEY SANTIAGO MD REPORT #: [id number] REPORT IS CONFIDENTIAL AND NOT TO BE RELEASED WITHOUT AUTHORIZATION
--- NOTE | 2017-11-12 21:57 | NUR ---
PATIENTS BED ALARM ALERTED STAFF THAT PATIENT WAS OUT OF BED WITHOUT USING CALL LIGHT. PATIENT ASSISTED TO THE RESTROOM A SBA. PATIENT IS NOT STEADY ON HIS FEET. PATIENT WAS ABLE TO VOID. PATIENT IS BACK IN BED RESTING. BED ALARM IN PLACE. NO NEEDS NOTED. CALL LIGHT IN REACH.
--- NOTE | 2017-11-12 22:30 | NUR ---
PATIENT APPEARED TO BE SLEEPING. BREATHING IS REGULAR BUT SHALLOW. WOKE THE PATIENT TO CHECK ORAL TEMP. WHICH WAS 99.0 F, 37.0 C. PATIENT WAS PLESANT BUT HAD DIFFICULTY FOLLOWING INSTRUCTIONS; SUCH BITING ON THE THERMOMETER AND NOT DEEP BREATHING OR COUGHING. PATIENT APPEARS VERY TIRED AND ASKED TO BE LEFT ALONE. CALL LIGHT IN REACH. BED ALARM ACTIVE.
--- NOTE | 2017-11-13 00:45 | NUR ---
PATIENT EXITED BED WITHOUT CALLING. BED ALARM ALERTED STAFF. PATIENT SBA TO THE RESTROOM. PATIENT DISORIENTED TO SURROUNDS. PATIENT STATED HE WAS AT A HOTEL. PATIENT REORIENTED. PATIENT HELPED BACK INTO BED. BED ALARM ON. ENCOURAGED PATIENT TO USE CALL LIGHT. CALL LIGHT WITHIN REACH. WARM BLANKETS PROVIDED.
--- NOTE | 2017-11-13 02:53 | NUR ---
PATIENT EXITED BED WITH OUT CALLING. BED ALARM ALERTED STAFF. PATIENT SBA TO THE RESTROOM. PATIENT ASSISTED BACK INTO BED. PATIENT EDUCATED TO USE THE CALL LIGHT. BED ALARM ON. PATIENT DENIES ANY NEEDS AT THIS TIME. CALL LIGHT WITHIN REACH.
--- NOTE | 2017-11-13 02:55 | NUR ---
PATIENT APPEARS TO BE RESTING COMFORTABLY. RR 18. CALL LIGHT IN REACH. BED ALARM ON.
--- NOTE | 2017-11-13 05:15 | NUR ---
PATIENT EXIT BED WITHOUT CALLING FOR ASSIST. BED ALARM SOUNDED. PATIENT WAS EXPERIENCING URGENCY TO URINATE AND WAS UNABLE TO MAKE IT TO THE TOILET IN TIME. FRESH GOWN AND ATTENDS IN PLACE. PATIENT ASSISTED BACK TO BED. ENCOURAGED HIM TO USE CALL LIGHT AND URNALS AT BEDSIDE. BED ALARM ON.
--- NOTE | 2017-11-13 05:18 | NUR ---
PATIENT SLEPT MOST OF THE NIGHT. PAIN CONTROLED WITH PRN NORCO X2. PATIENT WAS MORE ALERT AT BEGINING OF SHIFT. HE WAS CONFUSED ABOUT HIS SURROUNDINGS DURING THE NIGHT, BUT IS ORIENTED X4 THIS MORNING. PATIENT DOES NOT USE CALL LIGHT AND IS IMPULSIVE. BED ALARM IN USE. URINARY URGENCY HAS RESULTED IN DRIBBLING, ATTENDS IN PLACE. TRACE EDEMA IN NAOMIE LOWER EXTREMITIES. REFUSED SCDS.
--- NOTE | 2017-11-13 07:46 | NUR ---
APPEARS SLEEPY, AWAKENS TO TALKING AND ASKING HIM TO WAKE UP. REPORT RECEIVED FROM DELONTE MARTELLELEMENTARY SUBSTITUTE TEACHERFURNITURE RESTORER. PATIENT ALERT SELF BUT NOT SITUATION OR TIME/EVENT.
--- NOTE | 2017-11-13 07:49 | NUR ---
TENDER TO THE TOUCH AND WITH FLUSHING, NO REDNESS OR SWELLING.
--- NOTE | 2017-11-13 08:16 | NUR ---
PATIENT SITTING UP IN BED,EYES CLOSED, FINISHED W/BRKFST. BOARD UPDATED. CALL LIGHT IN REACH, NO OTHER NEEDS ATT
--- NOTE | 2017-11-13 09:52 | NUR ---
PATIENT SITTING UP IN BED, RN GRAY IN TO GIVE MEDS. VITALS AND I/OS DONE. PATIENT DENIES ANY PAIN OR OTHER NEEDS. CALL LIGHT IN REACH
[2017-11-13] MEDS ORDERED: OMEPRAZOLE20 MG PO (10:40)
[2017-11-13] MEDS ORDERED: SUCRALFATE1 GM PO (10:41)
--- NOTE | 2017-11-13 10:48 | NUR ---
DR SANTIAGO IN TO SEE PATIENT, DISCHARGE ORDERS WRITTEN, DAUGHTER OF PATIENT WILL BE THE RIDE. I CALLED HER AND GAVE HER THE NEWS.
--- NOTE | 2017-11-13 11:09 | NUR ---
up to bathroom without calling. chair alarm making noise. urinated in toilet. back to bed, bed alarm on. working on discharge paper work.
--- NOTE | 2017-11-13 11:22 | NUR ---
FAMILY HERE TO TAKE PATIENT HOME. IV DC'ED, TIP INTACT, SITE BENIGN, TOLERATED WELL. PRESSURE DRESSING APPLIED AND WILL REMOVE IN ABOUT 10 MINUTES.
--- NOTE | 2017-11-13 12:25 | NUR ---
Patient in bed, family in room. D/c vitals done. [facility] in .
--- NOTE | 2017-11-13 12:27 | NUR ---
ETHAN PHARMACIST IN ROOM NOW EDUCATING ABOUT HOME MEDICATIONS/PRESCRIPTIONS. PATIENT AND HIS DAUGHTER AND OTHER FAMILY MEMBER IN ROOM INTERACTING ALSO.
--- NOTE | 2017-11-13 19:03 | OR ---
[facility] [address] [place], [place] [address] Signed DATE OF OPERATION: 11/12/2017 SURGEON: Kena Cloud MD PREOPERATIVE DIAGNOSES: 1. Profound anemia. 2. Severe aortic stenosis. POSTOPERATIVE DIAGNOSES: Prepyloric ulcer and large duodenal bulbar ulcer (nonbleeding). PROCEDURE: Esophagogastroduodenoscopy with biopsy. ANESTHESIA: Intravenous sedation, etomidate. Intravenous infusion; Kena Banks CRNA. INDICATION: This 77-year-old white man is a patient of Dr. Billingsley and has a number of other medical problems including severe aortic stenosis and peripheral vascular disease. Additionally has chronic back pain, for which he has been taking a nonsteroidal agent rather intensively for several weeks. He presented with a syncopal episode and was found to have a hematocrit of 18. He has had no overt gastrointestinal bleeding nor does describe several weeks of dark black stool from time to time. He has been given 2 units of blood by transfusion, particularly given his severe aortic stenosis and has had no overt bleeding so far as can be told. He is now to undergo upper endoscopy to better characterize the source of his anemia understanding the risks of bleeding, infection, perforation, and cardiovascular problems as well. FINDINGS: Etomidate was used as a sedating agent which worked well. He had no significant hypotension during the procedure. The esophagus was entirely normal as was the distal duodenum, though there was a large bulbar ulcer with a lan white base and no sign of active bleeding. This took up between 30 and 50% of the lumen of the bulbar duodenum. There was a small prepyloric ulcer approximately 2 cm in size, which was not bleeding as well. CLOtest biopsy showed no sign of active infection in anyway. DESCRIPTION OF PROCEDURE: The patient was brought to the endoscopy suite and placed in the lateral decubitus position and given intravenous sedation by etomidate technique by the cash application clerk. A Electronically Signed By: KENA CLOUD MD 11/13/17 1903 PATIENT NAME: SUZIE WU OPERATIVE REPORT DATE OF : 40 REPORT #: [id number] PHYSICIAN: KENA CLOUD MD PCP: MADHAV ETIENNE REPORT IS CONFIDENTIAL AND NOT TO BE RELEASED WITHOUT AUTHORIZATION [facility] [address] [place], [place] [address] Signed bite block was placed. An Olympus video upper endoscope was passed in the hypopharynx. The vocal cords appeared normal. Scope was advanced to the esophagus without problem throughout its length. It was normal. The scope was advanced to the stomach, which was insufflated with air. There was no sign of blood in the stomach. Advance of the scope to the prepyloric area showed a 1-2 cm ulcer in the prepyloric area, showed no sign of active bleeding blood vessel. The scope was passed through into the pylorus, which showed a relatively large lan white base type ulcer taking between 30 and 50% of the lumen. The scope was gently passed beyond this to the second and third portions of the duodenum, which were normal. Scope was withdrawn. Irrigation undertaken affirming no sign of bleeding or recent bleeding or stigmata (visible vessel). The scope was further withdrawn and good photograph of both prepyloric and duodenal ulcers was undertaken. The scope was withdrawn to the antrum where biopsies were taken for both ANTONIO and pathologic testing. Retroflexed view was reasonably normal. Scope was straightened, withdrawn to the distal esophagus which was entirely normal. Careful withdrawal of the scope showed no sign of varices or other abnormalities. The scope was removed and the patient was taken to the recovery room in good condition. CONCLUDING DIAGNOSIS: Anemia almost certainly related to ulceration of the prepyloric area as well as large duodenal ulcer. PLAN: We will initiate Carafate as well as continue use of PPI medication. Continued plan for aortic valve replacement in the future will be anticipated. He will need to avoid nonsteroidals for the time being. MD NIURKA Maloney/LILLIANAL /[id number] cc: Dr. Billingsley Copies: Electronically Signed By: KENA CLOUD MD 11/13/17 1903 PATIENT NAME: SUZIE WU OPERATIVE REPORT DATE OF : 40 REPORT #: [id number] PHYSICIAN: KENA CLOUD MD PCP: MADHAV ETIENNE REPORT IS CONFIDENTIAL AND NOT TO BE RELEASED WITHOUT AUTHORIZATION [facility] [address] [facility] [place] [address] Signed ~ Electronically Signed By: KENA CLOUD MD 11/13/17 1903 PATIENT NAME: BRYCESUZIEALYSON KLINE OPERATIVE REPORT DATE OF : 40 REPORT #: [id number] PHYSICIAN: KENA CLOUD MD PCP: MADHAV ETIENNE REPORT IS CONFIDENTIAL AND NOT TO BE RELEASED WITHOUT AUTHORIZATION
== END 2017-11-13 12:38 | disposition home or self-care (01) | DRG 378 ==
LOC: ED 16:12 → MS 18:30
PROVIDERS: Surgery; ADMIT Internal Medicine
PROC: 0DB68ZX Excision of Stomach, Via Natural or Artificial Opening Endoscopic, Diagnostic (ICD-10-PCS; principal; 2017-11-12 11:45)
DX: K25.4 Chronic or unspecified gastric ulcer with hemorrhage (principal); B02.29 Other postherpetic nervous system involvement; D50.0 Iron deficiency anemia secondary to blood loss (chronic); K26.4 Chronic or unspecified duodenal ulcer with hemorrhage; T39.395A Adverse effect of other nonsteroidal anti-inflammatory drugs [NSAID], initial encounter; I35.0 Nonrheumatic aortic (valve) stenosis; I25.10 Atherosclerotic heart disease of native coronary artery without angina pectoris; I25.2 Old myocardial infarction; E11.51 Type 2 diabetes mellitus with diabetic peripheral angiopathy without gangrene; N40.1 Benign prostatic hyperplasia with lower urinary tract symptoms; K21.9 Gastro-esophageal reflux disease without esophagitis; E03.9 Hypothyroidism, unspecified; M10.9 Gout, unspecified; F32.9 Major depressive disorder, single episode, unspecified; F51.04 Psychophysiologic insomnia; I44.7 Left bundle-branch block, unspecified; E78.5 Hyperlipidemia, unspecified; I77.6 Arteritis, unspecified; F17.220 Nicotine dependence, chewing tobacco, uncomplicated; R41.0 Disorientation, unspecified; T40.2X5A Adverse effect of other opioids, initial encounter; Y92.239 Unspecified place in hospital as the place of occurrence of the external cause; G89.29 Other chronic pain; M54.16 Radiculopathy, lumbar region; E11.40 Type 2 diabetes mellitus with diabetic neuropathy, unspecified; Z79.891 Long term (current) use of opiate analgesic; Z79.899 Other long term (current) drug therapy
CPT/HCPCS: 36415; 36430; 80053; 82550; 82553; 82607; 82728; 82746; 83540; 83690; 83735; 83874; 84466; 84484; 85025; 86850; 86900; 86901; 86920; 88305; 93005; 93010; J2370; J2704; J7120; P9016

== ENCOUNTER 2017-12-11 19:45 | Observation (INO) | payer MEDICARE, OTHER ==
[~2017-12-11] VITALS: Ht 170.2 cm; Wt 73.4 kg
[~2017-12-11 19:45] MED LIST changes: +ALEVE220 M1 PO; +ALLOPURINOL100 MG PO; +LIDODERM1 EACH TOP; +LYRICA50 MG PO; +OMEPRAZOLE20 MG PO; +SUCRALFATE1 GM PO; +TRAZODONE HCL150 MG PO
--- NOTE | 2017-12-11 22:48 | NUR ---
PATIENT ARRIVED TO THE FLOOR VIA STRETCHER. PATIENT AMBULATED A SBA TO THE RESTROOM. PATIENT WAS ABLE TO VOID A SMALL AMOUNT. PATIENT ALSO HAD A BM. PATIENT AMBULATED BACK TO BED A SBA. PATIENTS INTAKE COMPLETED. PATIENT OREINTED TO ROOM AND FLOOR. PATIENTS EDUCATED ON BLOOD ADMNIISTRATIONS AND COMPLICATIONS. PATIENT EDUCATED ON SYMTPOMS TO ALERT STAFF ABOUT. PATIENT VERBALIZED UNDERSTANDING. CONSENT SIGNED IN THE ED AND IS COMPLETED. PATIENTS BLOOD ADMINISTRATION STARTED AT 2236.
--- NOTE | 2017-12-11 22:54 | NUR ---
PATIENTS 15 MINUTES VITALS TAKEN AFTER BLOOD ADMINISTRATION BEGAN. PATIENT DENIES ANY SYMTPTOMS OF A RECATION. PATIENT DOES NOT APPEAR TO SHOW ANY SIGNS OF A REACTION. PATIENT EDUCATED ON THE SYMTPOMS TO ALERT STAFF TO THAT COULD BE A SIGN OF A REACTION. PATIENT VERBALIZES UNDERSTANDING. PATIENT DENIES ANY FURTHER NEEDS. CALL LIGHT IN REACH. WILL CONTINUE TO MONITOR.
--- NOTE | 2017-12-11 23:20 | NUR ---
PATIENT ASSESSMENT PERFORMED. PATIENT IS FREQUENTLY DROWSEY BUT ORIENTED X4. DENIES ANY PAIN AT THIS TIME. LUNGS ARE CLEAR. ABD IS ROUND, SOFT, AND NONTENDER. BOWEL SOUNDS ACTIVE. PATIENT REPORTS BEING PREVIOSULY CONSIPATED BUT HAVING TAKEN SOME LAXATIVES AT HOME. HE HAS HAD BM X2 SINCE ARRIVAL IN ED. CMS INTACT. SMALL ABRASION NOTED ON LEFT HAND, PATIENT STATES IT WAS FROM A CARDIOLOGY PHYSICIAN. DENIES HAVING IT COVERED. PRBC INFUSING PER ORDERS, PATIENT DOES NOT SHOW ANY SIGNS OF REACTION AT THIS TIME. WILL CONTINUE TO MONITOR. PATIENT'S HR HAS BEEN REGULAR AROUND 47 SINCE ARRIVAL TO THE FLOOR, MONITORING WITH CONTINUOUS PULSE OX AT THIS TIME.
--- NOTE | 2017-12-12 | NUR ---
second IV site established in left forearm. Blood admin changed to this site and rate increased from 100ml/hr to 150mls/hr. Patient tolerated well. He denies any pain or concerns at this time. No toileting needs. Bed alarm on. Call light in hand.
--- NOTE | 2017-12-12 01:20 | NUR ---
FIRST UNIT OF PRBC FINISHED. NO REACTION NOTED. POST VITALS DONE, WNL. SECOND UNTI STARTED. FELICITA STUBBSS BEEN SLEEPING ON AND OFF. NOW REQUESTING FOOD, SOUP WITH CRACKERS PROVIDED. RN IN ROOM FOR FIRST 15MINS OF BLOOD ADMIN. NO SIGN OF REACTION. PATIENT DENIES ANY NEEDS. CALL LIGHT IN REACH.
--- NOTE | 2017-12-12 04:00 | NUR ---
SECOND UNIT PRBC FINISHED. NO REACTION. PATIENT SLEEPING SOUNDLY, WOKE EASILY TO VOICE. POST VS DONE, WNL. NO OTHER NEEDS AT THIS TIME. CALL LIGHT IN REACH.
--- NOTE | 2017-12-12 07:04 | NUR ---
PATIENT ARRIVED AROUND 2200 LAST NIGHT. 2 UNITS PRBC RECEIVED. H&H IMPROVED SLIGHTLY. NO ADVERSE REACTION. APPETITE IMPROVED. CARDIAC DIET. SBA. DENIES PAIN. AAOX4.
--- NOTE | 2017-12-12 07:55 | NUR ---
PATIENT WAS SLEEPING DURING AM REPORT AND STILL SLEEPING WHEN I CAME IN AND HAD TO EXPLAIN THE REASON FOR AM ASSESSMENT. LUNGS CLEAR AND BOWEL TONES ACTIVE. PATIENT IS ORIENTED AND ASKING FOR BREAKFAST WHICH I INFORMED HIM WOULD BE HERE SHORTLY. PATIENT IS PAIN FREE AND HAS NO QUESTIONS OR CONCERNS FOR ME AT THIS TIME.
--- NOTE | 2017-12-12 08:45 | NUR ---
NEW ORDER TO ADMINISTER 2 UNITS OF BLOOD. UPDATED LAB ORDER. AWAITING BLOOD TO BE READY
--- NOTE | 2017-12-12 09:00 | NUR ---
INFORMED BY MONICA THE CHARGE NURSE THAT JUST CALLED AND INFORMED HER PATIENT WAS GOING TO GET 2 MORE UNITS OF BLOOD. AWAITING CALL BACK FROM LAB FOR BLOOD TO BE READY.
--- NOTE | 2017-12-12 10:09 | NUR ---
LAB CALLED AND BLOOD IS READY TO NOTEMAN IN THE LAB.
--- NOTE | 2017-12-12 11:24 | NUR ---
1ST UNIT PRBC'S STARTED AT 1103. PATIENT'S VS STABLE, BUT PATIENT REMAINS BRADYCARDIC IN THE HIGH 40'S TO 50'S WITHOUT SYMPTOMS. TRANSFUSION VITALS 15 MINUTES AFTER START TIME REMAIN STABLE. PATIENT HAS HAD NO REACTION TO THE TRANSFUSION AND HAS BEEN EDUCATED ON WHAT TO LOOK FOR FAR A REACTION. PATIENT'S DAUGHTER REMAINS AT BEDSIDE.
[2017-12-12] MEDS ORDERED: SUCRALFATE1 GM PO (14:20)
[2017-12-12] MEDS ORDERED: NICORETTE2 MG MM (14:20)
--- NOTE | 2017-12-12 15:42 | NUR ---
Medications reconciled by pharmacy
--- NOTE | 2017-12-12 15:50 | NUR ---
PATIENT RESTING QUIETLY AT THIS TIME SECOND UNIT OF PRBC'S STILL INFUSING.
--- NOTE | 2017-12-12 16:49 | NUR ---
PATIENT TOLERATED BOTH PRBC INFUSIONS WELL AND LAB CALLED TO PERFORM LAB DRAW.
--- NOTE | 2017-12-12 17:25 | NUR ---
CALLED WITH NEW CBC RESULTS AND DR. SANTIAGO WILL BE PUTTING IN DC ORDERS.
--- NOTE | 2017-12-12 17:42 | NUR ---
PATIENT REMAINS STABLE BUT BRADYCARDIC IN THE 40'S TO 50'S SINCE ARRIVAL. MD WAS MAD AWARE OF THIS ON NOC SHIFT.
== END 2017-12-12 18:20 | disposition home or self-care (01) ==
LOC: ED 19:45 → MS 19:47
PROVIDERS: ADMIT Internal Medicine
DX: D50.0 Iron deficiency anemia secondary to blood loss (chronic) (principal); K26.4 Chronic or unspecified duodenal ulcer with hemorrhage; K25.4 Chronic or unspecified gastric ulcer with hemorrhage; I35.0 Nonrheumatic aortic (valve) stenosis; E11.9 Type 2 diabetes mellitus without complications; E03.9 Hypothyroidism, unspecified; F51.04 Psychophysiologic insomnia; F17.220 Nicotine dependence, chewing tobacco, uncomplicated; I25.2 Old myocardial infarction; G89.4 Chronic pain syndrome; T39.395A Adverse effect of other nonsteroidal anti-inflammatory drugs [NSAID], initial encounter; M54.9 Dorsalgia, unspecified; I25.10 Atherosclerotic heart disease of native coronary artery without angina pectoris; Z79.891 Long term (current) use of opiate analgesic; Z79.899 Other long term (current) drug therapy; Z95.5 Presence of coronary angioplasty implant and graft
CPT/HCPCS: 36415; 36430; 80053; 85025; 85610; 85730; 86850; 86900; 86901; 86920; 94762; 96374; 99285; 99406; G0378; J7030; P9016

== ENCOUNTER 2018-01-29 16:19 | Emergency (ER) | payer MEDICARE, OTHER ==
[~2018-01-29] VITALS: Ht 170.2 cm; Wt 63.5 kg
[~2018-01-29 16:19] MED LIST changes: +NICORETTE2 MG MM
== END 2018-01-29 17:34 | disposition home or self-care (01) ==
LOC: ED 16:19
DX: S00.01XA Abrasion of scalp, initial encounter (principal); E11.9 Type 2 diabetes mellitus without complications; I10 Essential (primary) hypertension; I25.2 Old myocardial infarction; Z79.899 Other long term (current) drug therapy; W19.XXXA Unspecified fall, initial encounter; W22.8XXA Striking against or struck by other objects, initial encounter; Y92.096 Garden or yard of other non-institutional residence as the place of occurrence of the external cause
CPT/HCPCS: 99282